=== PATIENT | male | born 1940 | race Caucasian/White ===

== ENCOUNTER 2016-10-10 12:12 | Inpatient (IN) | payer MEDICARE ==
[~2016-10-10] VITALS: Ht 167.6 cm; Wt 69.5 kg
[~2016-10-10 12:12] MED LIST: ASPIRIN81 MG PO; CELEBREX200 MG PO; COREG 3.1253.125 MG PO; LASIX40 MG PO; LIPITOR10 MG PO; OMEPRAZOLE40 MG PO; ULTRAM50 MG PO
--- NOTE | 2016-10-10 12:35 | NUR ---
TRANSFERED FROM ADMISSIONS BY W/C. OREINTED TO ROOM. CALL LIGHT IN REACH. WILL CONT. PLAN OF CARE.
[2016-10-10] MEDS ORDERED: COREG6.25 MG PO (12:45)
[2016-10-10 12:54] VITALS: BP 105/68; Ht 167.6 cm; Wt 69.5 kg
[2016-10-10 13:10] LABS: BASOPHILS 0.2 % (0.0-2.0); EOSINOPHILS 0.7 % (0-7); HEMATOCRIT 39.1 % (42.0-54.0); HEMOGLOBIN 12.7 g/dL (13.5-17.5); IMMATURE GRANULOCYTES 0.2 % (0-5); LYMPHOCYTES 19.1 % (15-50); MCH 28.2 pg (26.0-34.0); MCHC 32.5 g/dL (31.0-37.0); MCV 86.9 fL (80.0-100.0); MEAN PLATELET VOLUME 10.6 fL (7.4-10.4); MONOCYTES 7.3 % (2-11); NEUTROPHILS 72.5 % (40-80); PLATELET COUNT 199 10x3/uL (130-400); RDW 16.2 % (11.5-14.5); WBC 10.4 10x3/uL (4.8-10.8)
[2016-10-10 13:38] LABS: CKMB 0.5 U/L (0.0-3.6); CREATINE KINASE 40 UL (21-232); TROPONIN-I 0.045 ng/mL (0.000-0.060)
--- NOTE | 2016-10-10 13:45 | NUR ---
IV STARTED TO LEFT FA WITH 22 GAUGE CATH BY OCTAVIANO BUCKLEY. LINE IS PATENT.
[2016-10-10 14:16] LABS: ALBUMIN 3.4 g/dL (3.4-5.0); ANION GAP 9.6 mmol/L (8-16); BILIRUBIN - TOTAL 0.52 mg/dL (0.2-1.3); CALCIUM 9.6 mg/dL (8.5-10.1); CARBON DIOXIDE 27.3 mmol/L (21.0-32.0); CREATININE - SERUM 1.4 mg/dL (0.6-1.3); POTASSIUM - SERUM 3.9 mmol/L (3.5-5.1); PROTEIN - SERUM 7.3 g/dL (6.4-8.2)
--- NOTE | 2016-10-10 19:00 | NUR ---
RECEIVED REPORT AND ASSUMED PT CARE FROM DAY SHIFT NURSE @ THIS TIME.
[2016-10-10 20:25] VITALS: BP 100/61
[2016-10-10 20:34] VITALS: BP 111/70; BP 117/72
[2016-10-10 20:35] VITALS: BP 100/51
--- NOTE | 2016-10-10 21:30 | NUR ---
PT RESTING SOUNDLY IN BED WITHOUT C/O OR DISTRESS NOTED. NSR ON MONITOR, HR 78. DENIES ANY C/O PAIN. LEFT FOREARM WITH NS @ 50 CC/HR, INFUSING WITHOUT COMPLICATIONS. WILL CONT TO MONITOR.
[2016-10-11] VITALS (7 sets, daily range): BP systolic 85–137; BP diastolic 50–79
[2016-10-11 01:32] LABS: CKMB 0.6 U/L (0.0-3.6); CREATINE KINASE 44 UL (21-232); TROPONIN-I 0.043 ng/mL (0.000-0.060)
[2016-10-11 06:07] LABS: BASOPHILS 0.2 % (0.0-2.0); HEMATOCRIT 42.1 % (42.0-54.0); HEMOGLOBIN 13.4 g/dL (13.5-17.5); LYMPHOCYTES 22.4 % (15-50); MCHC 31.8 g/dL (31.0-37.0); MCV 88.1 fL (80.0-100.0); MEAN PLATELET VOLUME 10.8 fL (7.4-10.4); MONOCYTES 7.8 % (2-11); NEUTROPHILS 67.6 % (40-80); PLATELET COUNT 203 10x3/uL (130-400); RBC 4.78 10x6/uL (4.20-6.10); RDW 16.3 % (11.5-14.5); WBC 8.1 10x3/uL (4.8-10.8)
[2016-10-11 06:28] LABS: ALBUMIN 3.5 g/dL (3.4-5.0); ANION GAP 10.2 mmol/L (8-16); BILIRUBIN - TOTAL 0.4 mg/dL (0.2-1.3); CREATININE - SERUM 1.2 mg/dL (0.6-1.3); POTASSIUM - SERUM 4.2 mmol/L (3.5-5.1)
[2016-10-11] MEDS ORDERED: CORDARONE200 MG PO (10:03)
[2016-10-11] MEDS ORDERED: KENALOG 0.1% OI80 GM TOPICAL (10:05)
--- NOTE | 2016-10-11 11:04 | NUR ---
Is the patient Alert and Oriented? Yes 0 * How many steps to enter\exit or inside your home? Three 0 * PCP DR Heard 0 * Pharmacy Mail order delivery- Home Pharmacy Short term medications- [facility] 0 * Preadmission Environment Home Alone 0 * ADLs Independent 0 * Equipment Cane 0 * Other Equipment N/A 0 * List name and contact numbers for known caregivers / representatives who currently or will assist patient after discharge: Geovanna Bowling - [facility]- [phone] Leonora- [facility]- [phone] 0 * Community resources currently utilized None 0 * Additional services required to return to the preadmission environment? Yes 0 * Can the patient safely return to the preadmission environment? Yes 0 * Has this patient been hospitalized within the prior 30 days at any hospital? No CM met w/ patient and his 2 daughters at the bedside. They requested home health. Patient lives alone. Had syncopal episodes. He has 3 steps to enter his home. One daughter lines [place] [facility] [place]. His daughter, Leonora, lives in [place]. He had home health 2014 and could not recall the agency name. CM called health information & it was [facility] which is now [facility]. PCP in [facility]raiser is [facility] and [facility] Patient has transportation. MD order and Patient choice form obtained. TC to [facility]. CM spoke w/ Dana. Faxed referral. Patient will be seen Thursday or Thursday. They will notify the patient of visit day.
--- NOTE | 2016-10-11 12:26 | NUR ---
IV AND TELEMETRY DCD. DC PLANS GIVEN. UNDERSTANDING VOICED. ESCORTED TO CAR BY W/C.
--- NOTE | 2016-10-13 14:16 | CN ---
PATIENT NAME:TERRY BOWLING MEDICAL RECORD: [id number] : 44 LOCATION:D. D.2116 ADMIT DATE: 10/10/16 ACCOUNT: [id number] CONSULTING PHYSICIAN: MARGARITO NIX MD REFERRING PHYSICIAN: GILSON LAFLEUR DO DATE OF CONSULTATION: 10/10/2016 Cardiology Consultation DIAGNOSES: 1. Syncope. 2. Cardiomyopathy, nonischemic. 3. Abnormal ECG. HISTORY OF PRESENT ILLNESS: Mr. Bowling got out of bed at night to go the bathroom and had an episode of syncope. He did not have any chest pain or chest discomfort. He has a history of a nonischemic cardiomyopathy, cardiac catheterization last year revealed ejection fraction in the 25% to 30% range. This has continued on an echocardiogram we have from ____. He is overall asymptomatic from a heart failure standpoint. He has not had any significant arrhythmias on telemetry, only occasional PVCs. PHYSICAL EXAMINATION: GENERAL APPEARANCE: Well-nourished, well-developed, appears stated age. Level of distress, comfortable. PSYCHIATRIC: Mental status, alert, normal affect. Orientation, oriented to time, place and person. EYES: Lids and conjunctiva, noninjected. No discharge, no pallor. ENT: Lips, teeth, gums, normal dentition. Oropharynx, no cyanosis, no pallor. NECK: Carotid arteries, bilateral normal upstroke, no bruits, no thrills. JUGULAR VEINS: No jugular venous pressure or distention. CERVICAL LYMPH NODES: Nontender, nonenlarged. THYROID: Not enlarged. Nontender. No nodules. LUNGS: Respiratory effort, unlabored. CHEST: Normal curvature. No thoracic deformity. No chest wall tenderness. Percussion, resonant. Auscultation, clear. No wheezes, no rales, no rhonchi. CARDIOVASCULAR: Precordial exam, nondisplaced. No heaves or pericardial thrills. Rate and rhythm, regular. Heart sounds, normal S1, normal S2. No S3, no gallop, no rub. Systolic murmur, not heard. Diastolic murmur, not heard. EXTREMITIES: No cyanosis, no edema. Peripheral pulses, full and equal in all extremities, except as noted. No bruits appreciated. ABDOMEN: Soft, nondistended. Normal aorta. No bruit. Nontender. No masses. Liver, nontender, no hepatomegaly. Spleen, nontender, no splenomegaly. MUSCULOSKELETAL: No joint tenderness. No joint swelling. No erythema. NEUROLOGICAL: Normal gait, normal strength, normal tone. SKIN: Warm and dry. REVIEW OF SYSTEMS: The patient reports easy bruising but reports no swollen glands. The patient reports no fever, no night sweats, no significant weight gain, no significant weight loss. No significant exercise tolerance. The patient reports no dry eyes, no irritation, no vision change. Patient reports no difficulty hearing and no ear pain. Patient reports no frequent nose bleeds or nose and sinus problems. Patient reports on arm pain on exertion. No shortness of breath while lying down. No history of heart murmur. Patient reports no cough, no wheezing or coughing up blood. Patient reports no CONSULT REPORT [id number] TERRY BOWLING abdominal pain, no vomiting. Normal appetite. No diarrhea and not vomiting blood. No nausea and no constipation. Patient reports no incontinence. No difficulty urinating. No hematuria. No increased frequency. Patient reports no muscle aches. No weakness, no arthralgias, no back pain. No swelling of the extremities. Patient reports no abnormal mole, no jaundice, no rashes. Reports no loss of consciousness. No weakness and no numbness. No seizures, dizziness, or headaches. The patient reports no depression, no sleep disturbance, feeling safe in a relationship and no alcohol abuse. Patient reports on fatigue. Reports no runny nose or sinus pressure. No itching, no hives, and no frequent sneezing. OVERALL IMPRESSION: Nonischemic cardiomyopathy. His heart rate is 90, however, his systolic blood pressure is 105, it would be hard to increase his carvedilol to get better heart rate control with this. We have no reason to think that this was an arrhythmia. It barely maybe an orthostatic event. He has not been orthostatic since he has been here on blood pressure. At this time, no other cardiac workup treatment is necessary. TRANSINT:[id number] Voice Confirmation ID: [id number] DOCUMENT ID: [id number] MARGARITO NIX MD at 1416 CC: [id number] DICTATION DATE: 10/10/16 250 OPTOMECHANICAL ENGINEER: 10/10/16 2346 DIS IN 10/11/16 [facility] [address] [place] [address]
--- NOTE | 2016-10-13 14:16 | EC ---
PATIENT:TERRY SHAHID DATE OF SERVICE: 10/10/16 SEX: M MEDICAL RECORD: [id number] DATE OF : 44 LOCATION:D. D.211 AGE OF PATIENT: 75 ADMISSION DATE: 10/10/16 REFERRING PHYSICIAN: INTERPRETING PHYSICIAN: MARGARITO ZAMORA MD ECHOCARDIOGRAM REPORT ECHO CHARGES 4 ECHO COMPLETE CLINICAL DIAGNOSIS: CP/SYCOPE/SOB ECHOCARDIOGRAPHIC MEASUREMENTS (adult normal given) AC root (d.<3.7cm) 3.5 LV Septum d (<1.2 cm> 1.4 Valve Excursion 1.4 LV Septum (systole) 1.9 Left Atria (s.<4.0cm> 3.7 LVPW d(<1.2cm) 1.5 RV (d.<2.3cm) 2.6 LVPW (sytole) 1.6 LV diastole(<5.6CM) 6.4 MV E-F(>70mm/sec) LV systole 4.7 LVOT Diameter 2.2 MV exc.(>10mm) Est.ejection fraction (50-75%) Pericardial Effusion N DOPPLER: LVIT A 96.0 E 52.0 LA RVSP 57.0 LVOT 68.0 AOP1/2T 401.0 Asc. Ao 214 RVOT 88.0 RA PA 100 AV Gradient Peak 18.3 AV Mean 8.2 AV Area 1.4 MV Gradient Peak 4.1 MV Mean 1.1 MV Area COMMENTS: Director Of Music: Ozzie LOPEZ Car Stereo Installer:1 Dr. [facility] TAPE# PACS DATE OF SERVICE: 10/10/2016 Echocardiogram FINDINGS: 1. Left ventricular chamber size is mildly dilated. Left ventricular systolic function is markedly reduced, overall ejection fraction 25% to 30%. This however, is an improvement on his previous echocardiogram done last year showing ejection fraction 20%. 2. Left atrium is within normal limits at 3.7 cm. Right atrium and right ECHOCARDIOGRAM REPORT [id number] TERRY SHAHID ventricular chamber sizes are upper limits of normal. 3. Valvular structures have normal structure and motion. 4. Doppler interrogation reveals mild aortic insufficiency, moderate mitral regurgitation, and mild tricuspid regurgitation. No other valvular insufficiency or stenosis; however, pulmonary systolic pressure is mildly elevated estimated at 57 mmHg. 5. No evidence of pericardial effusion or left ventricular thrombus. TRANSINT:[id number] Voice Confirmation ID: [id number] DOCUMENT ID: [id number] MARGARITO ZAMORA MD at 1416 CC: GILSON ALFLEUR DO [id number] DICTATION DATE: 10/10/16 1844 CASING OPERATOR: 10/11/16 0821 DIS IN 10/11/16 [facility] [address] [place] [address]
== END 2016-10-11 12:27 | disposition home or self-care (01) | DRG 312 ==
LOC: D.M2 12:12
PROVIDERS: ADMIT Family Medicine
DX: R55 Syncope and collapse (principal); I42.9 Cardiomyopathy, unspecified; R07.9 Chest pain, unspecified; I49.3 Ventricular premature depolarization; R94.31 Abnormal electrocardiogram [ECG] [EKG]; N18.3 Chronic kidney disease, stage 3 (moderate); Z72.0 Tobacco use

== ENCOUNTER 2017-06-04 13:22 | Inpatient (IN) | payer MEDICARE ==
[~2017-06-04] VITALS: Ht 167.6 cm; Wt 71.2 kg
[2017-06-04] VITALS (11 sets, daily range): BP systolic 110–152; BP diastolic 58–92; BMI 25.4
--- NOTE | ~2017-06-04 | OP ---
PATIENT NAME: TERRY SHAHID MEDICAL RECORD: [id number] :42 LOCATION:D.MS [id number] ADMISSION DATE:06/04/17 SURGEON: VAISHNAVI HERNANDEZ MD DATE OF OPERATION: 06/04/2017 PREOPERATIVE DIAGNOSIS: Incarcerated left inguinal hernia. POSTOPERATIVE DIAGNOSES: 1. Recurrent left indirect inguinal hernia. 2. Left groin mass, infected, of uncertain etiology. PROCEDURES: 1. Open recurrent left inguinal hernia repair with Vicryl mesh. 2. Excision of infected subcutaneous mass in the left groin with placement of a drain. SURGEON: Vaishnavi Hernandez MD TURFGRASS MANAGEMENT PROFESSOR: None. BLOOD LOSS: 100 cc. ANESTHESIA: General. DRAINS: Times 1 (19-Chinese round Jaxson drain). The risks, possible complications, and alternatives to the procedure were explained to the patient. He elected to proceed. OPERATIVE COURSE: The patient was conveyed to the operating room electively on 06/04/2017. General anesthesia was induced by the anesthesia staff. The abdomen and genitals were sterilely prepped and draped. A transverse incision was accomplished in the left lower quadrant. Sharp dissection was carried down through skin and subcutaneous tissue as well as Maya fascia. The external oblique aponeurosis was cleaned of overlying connective tissue. I incised the external oblique aponeurosis along the direction of its fibers. I bluntly dissected down through the internal oblique and the transversus abdominis muscle layers. A preperitoneal pocket was fashioned bluntly. There was no direct component and no femoral component. There was a recurrent indirect inguinal hernia. The patient interestingly, preoperatively, told me that he had had a hernia repair at the right groin; however, because of pubic hair, I could not see that he actually had a left groin scar. There was scarring in the left lower quadrant, particularly superficial to the external oblique aponeurosis from his prior repair. His prior repair appeared to be either a suture repair or an onlay repair. There was a recurrent indirect inguinal hernia and it was reduced in its entirety. A subcutaneous tract was created down to this extraperitoneal mass which was actually in the left groin and adherent to the left cord structures. I was able to free up most of this through blunt dissection. This may represent some type of neoplasm. This may represent some type of lymphatic abnormality. I am really not sure what it represented; however, the patient's history that it has only been present for few days is not consistent with what I saw. Purulence was OPERATIVE REPORT [id number] TERRY SHAHID identified. Cultures were obtained. Meticulous hemostasis was achieved with the electrocautery. As purulence had identified, synthetic mesh was going to be out of the question. I elected to perform the hernia repair utilizing Vicryl mesh. Two layers of Vicryl mesh were cut in ovals . One was placed on top of the other and they were sutured together with running #1 Surgidac. The mesh was placed in the preperitoneal space. Once I was satisfied with placement, I allowed the internal oblique and transversus abdominis muscles to come together and I sutured them together with multiple interrupted horizontal mattress #0 Surgidacs, incorporating a portion of the underlying mesh. The external oblique aponeurosis was closed with a running #1 Vicryl. A 19-Chinese round Jaxson drain was brought out through a stab incision laterally. The drain was sutured to the skin with a 4-0 nylon. The tip of the drain was placed down into the left hemiscrotum. Maya fascia was approximated with interrupted 3-0 Vicryls. The skin was approximated with metallic clips. A sterile dressing was applied. The patient was then extubated and conveyed to the postanesthesia care unit, where he was in stable condition. TRANSINT:[id number] Voice Confirmation ID: [id number] DOCUMENT ID: [id number] VAISHNAVI HERNANDEZ MD CC: GILSON LAFLEUR DO [id number] DICTATION DATE: 06/05/17 164 FOREST MANAGEMENT PROFESSOR: 06/05/17 1834 ADM IN [facility] [address] [place] [id number]
--- NOTE | ~2017-06-04 | HP ---
PATIENT: TERRY SHAHID MEDICAL RECORD: [id number] ACCOUNT: [id number] LOCATION:D.MS Reed9 : 42 ADMISSION DATE: 06/04/17 HISTORY AND PHYSICAL EXAMINATION ADDENDUM CHIEF COMPLAINT: Pain. HISTORY OF PRESENT ILLNESS: The patient has noticed a left inguinal bulge for about a day or two. It is irreducible. I was contacted by Dr. Osmar Heard about this mass. I rather asked for the patient to come to the office. I was unable to reduce this mass in the office. I was able to partially reduce it. This appears to be an incarcerated left inguinal hernia. I have explained the pathophysiology of hernias to the patient including how they are repaired. We discussed the risks, possible complications, and alternatives of the procedure. I specifically discussed with him that we would be using mesh. We discussed the possibility of a pseudo sac, hematoma, or seroma. Palpation aggravates. Nothing alleviates. The pain is severe. He has had no nausea, no vomiting, no abdominal distention, no obstructive symptoms. He has had a prior right inguinal hernia, although I am unable to detect the scar on the right. This is a history and physical addendum. For the typed portion of the history and physical, please see the chart. This would include the past medical history, surgical history, allergies, social history, family history, and current medications. REVIEW OF SYSTEMS: No nausea, no vomiting, no fever, no chills. Positive for left inguinal pain. PHYSICAL EXAMINATION: GENERAL: The patient does not appear acutely ill. He does appear chronically ill. VITAL SIGNS: Reviewed. EARS: External ears appear normal. EYES: Extraocular movements are intact. NECK: Trachea is midline. CHEST: No intercostal retractions. PULMONARY: Nonlabored. ABDOMEN: Nontender. GENITOURINARY: Distended testicles. Left inguinal bulge, which is irreducible. EXTREMITIES: No peripheral cyanosis. INTEGUMENT: No rash, no ulcerations. PSYCHIATRIC: Normal affect. NEUROLOGIC: Nonfocal, no lethargy. The patient answers questions appropriately, moves all extremities well. BACK: Thoracic kyphosis is present. LYMPHATICS: No lymphangitic streaking of the exposed extremities. IMPRESSION: Incarcerated left inguinal hernia. PLAN: Open left inguinal hernia repair with mesh. TRANSINT:[id number] Voice Confirmation ID: [id number] DOCUMENT ID: [id number] HISTORY AND PHYSICAL [id number] TERRY SHAHID ROBERT MD CC: [id number] DICTATION DATE: 06/04/17 1337 COLLISION MECHANIC: 06/04/17 1359 ADM IN [place] [id number] [place] [id number]
[~2017-06-04 13:22] MED LIST changes: +CORDARONE200 MG PO; +COREG6.25 MG PO; +KENALOG 0.1% OI80 GM TOPICAL
[2017-06-04] MEDS ORDERED: ULTRAM50 MG PO (13:40)
--- NOTE | 2017-06-04 14:35 | NUR ---
IV SITED TO THE LEFT FOREARM, 22G FLUSHED WITH NS AND SECURED WITH OP-SITE AND TAPE. BED IN LOW POSITION AND CALL LIGHT WITHIN REACH. WILL CONTINUE TO MONITOR.
[2017-06-04 14:42] LABS: BASOPHILS 0.3 % (0-2); HEMATOCRIT 39.5 % (42.0-54.0); HEMOGLOBIN 13.2 g/dL (13.5-17.5); IMMATURE GRANULOCYTES 0.2 % (0-5); LYMPHOCYTES 18.5 % (15-50); MCH 29.7 pg (26.0-34.0); MCHC 33.4 g/dL (31.0-37.0); MEAN PLATELET VOLUME 9.6 fL (7.4-10.4); MONOCYTES 11.1 % (2-11); NEUTROPHILS 66.9 % (40-80); PLATELET COUNT 246 10x3/uL (130-400); RBC 4.44 10x6/uL (4.20-6.10); RDW 15.3 % (11.5-14.5); WBC 6.4 10x3/uL (4.8-10.8)
[2017-06-04 14:45] LABS: INR 1.09 (0.85-1.17)
[2017-06-04 14:49] LABS: ALBUMIN 3.2 g/dL (3.4-5.0); ANION GAP 10.5 mmol/L (8-16); BILIRUBIN - TOTAL 0.71 mg/dL (0.2-1.3); CALCIUM 8.9 mg/dL (8.5-10.1); CARBON DIOXIDE 27.8 mmol/L (21.0-32.0); CREATININE - SERUM 1.8 mg/dL (0.6-1.3); POTASSIUM - SERUM 3.3 mmol/L (3.5-5.1); PROTEIN - SERUM 7.6 g/dL (6.4-8.2)
--- NOTE | 2017-06-04 18:32 | NUR ---
VANCOMYCIN 1MG IN 250ML OF NS INFUSING WHEN PT ARRIVED IN PACU
--- NOTE | 2017-06-04 19:15 | NUR ---
GOT PT OVER TO ROOM ON MEDSURG AND PT VOICED"IM HURTING NOW, I CANT KEEP COUGHING". FLOOR NURSE IS GIVING REPORT SO I VOICED I WOULD BRING THE PT SOME PAIN MEDICINE ORDERED AND STAY WITH THE PT FOR 10 MINUTES TO MONITOR PAIN MEDICATIONS EFFECTS. PT FAMILY IS IN THE ROOM. BED IS LOW,SIDE RAILSX2,CALL LIGHT WITHIN REACH.[facility]
--- NOTE | 2017-06-04 19:25 | NUR ---
PT VOICES"THE PAIN MEDICINE IS HELPING". BP IS 143/64 PULSE 58, RR 18, OXYGEN SAT 99%. HANDING OFF PT TO NURSE YAMIL BUCKLEY.
--- NOTE | 2017-06-04 19:30 | NUR ---
RETURNED TO ROOM POST OP LEFT HERNIA REPAIN. DRESSING TO LEFT LOWER ABDOMEN WITH RENETTA DRAIN IN PLACE AND COMPRESSED. IV PATENT LEFT FOREARM OF NS AT 100CC'S PER HR. O2 ON 2L/M PER NC. HOB UP 30 DEGREES. SR UP X2 CALL LIGHT WITHIN REACH FAMILY IN ROOM.
--- NOTE | 2017-06-04 20:41 | NUR ---
UNDERWATER TRAPPER OF DILAUDID SET UP FOR PAIN CONTROL INSTRUCTED PATIENT ON HOW TO OPERATE UNDERWATER TRAPPER. SR UP X2 CALL LIGHT WITHIN REACH.
--- NOTE | 2017-06-04 22:00 | NUR ---
RESTING QUIETLY RESPIRATIONS WITH EASE AND UNLABORED. EMPTIED 90CC'S BLOODY DRAINAGE FROM RENETTA DRAIN
[2017-06-05] VITALS (8 sets, daily range): BP systolic 94–143; BP diastolic 46–68; Ht 167.6 cm; Wt 71.2 kg
--- NOTE | 2017-06-05 | NUR ---
EYES CLOSED RESPIRATIONS WITH EASE AND UNALBORED.
--- NOTE | 2017-06-05 02:30 | NUR ---
RESTING QUIETLY RESPIRATIONS WITH EASE AND UNLABORED.
--- NOTE | 2017-06-05 04:26 | NUR ---
EYES CLOSED RESPIRATIONS WITH EASE AND UNLABORED.
--- NOTE | 2017-06-05 06:07 | NUR ---
NO CHANGES IN ASSESSMENT
--- NOTE | 2017-06-05 08:02 | NUR ---
AWAKE AND ALERT. ORIENTED X3. NO C/O AT THIS TIME. LUNGS ARE CLEAR BILATERALLY, NO COUGH NOTED. STATED HE IS DOING HIS DEEP BREATHING EXERCISES. SKIN IS INTACT WITHOUT REDNESS EXCEPT INCISION TO LEFT LOWER QUAD WHICH HAS A DRESSING IN PLACE WITH BLOODY DRAINAGE. WILL MONITOR. IV TO LEFT FOREARM IS PATNET WITHOUT REDNESS AT INSERTION SITE. DENIES NEEDS.
--- NOTE | 2017-06-05 08:06 | NUR ---
HERNANDEZ PATENT WITH CLEAR YELLOW URINE. SCD'S IN PLACE
--- NOTE | 2017-06-05 08:41 | NUR ---
RENETTA TO LEFT LOWER QUAD PATENT WITH SEROUS SANQUINESS DRAINAGE NOTED.
--- NOTE | 2017-06-05 09:10 | NUR ---
OFF UNIT VIA BED FOR CT.
--- NOTE | 2017-06-05 09:45 | NUR ---
RETURNED FROM CT. NO NEEDS NOTED.
--- NOTE | 2017-06-05 12:15 | NUR ---
PATIENT IS STILL NPO. DENIES NEEDS.
--- NOTE | 2017-06-05 14:30 | NUR ---
RESTING QUIETLY IN ROOM. REPORTED UNABLE TO NAP AT THIS TIME. DENIES NEEDS.
--- NOTE | 2017-06-05 19:04 | NUR ---
ATE ALL OF FULL LIQUID SUPPER TRAY. NO C/O NAUSEA OR PAIN WITH FOOD.
[2017-06-06 00:11] VITALS: BP 110/68
[2017-06-06 04:00] VITALS: BP 106/48
--- NOTE | 2017-06-06 08:00 | NUR ---
AWAKE AND ALERT. ORIENTED X3. NO C/O AT THIS TIME. LUNGS ARE CLEAR BILATERALLY, NO COUGH NOTED. SKIN IS INTACT WITHOUT REDNESS EXCEPT INCISION TO LEFT LOWER QUAD WHICH HAS A DRY INTACT DRESSING IN PLACE. IV TO LEFT FOREARM IS PATENT WITHOUT REDNESS AT INSERTION SITE. DENIES NEEDS.
[2017-06-06 08:40] VITALS: BP 125/69
--- NOTE | 2017-06-06 09:00 | NUR ---
ATE ALL OF REGULAR BREAKFAST. NO C//O NAUSEA OR INCREASED PAIN WITH FOOD.
--- NOTE | 2017-06-06 11:30 | NUR ---
RESTING QUIETLY IN BED. DENIES NEEDS.
[2017-06-06 12:39] VITALS: BP 128/63
--- NOTE | 2017-06-06 13:00 | NUR ---
ATE ALL OF LUNCH PER SELF. NO C/O AT THIS TIME
--- NOTE | 2017-06-06 14:41 | NUR ---
AMBULATED 60 FEET WITH STAFF. GIVEN BED BATH PER STAFF AND LINENS CHANGED. REPOSITIONED IN BED FOR COMFORT.
[2017-06-06 16:51] VITALS: BP 105/66
[2017-06-06] MEDS ORDERED: KEFLEX500 MG PO (18:30)
[2017-06-06] MEDS ORDERED: HYDROCODON-ACE1 EAC7 PO (18:31)
--- NOTE | 2017-06-06 18:33 | NUR ---
ATE MOST OF SUPPER. DENIES NEEDS. NO CHANGES NOTED.
[2017-06-06 19:23] VITALS: BP 111/58
[2017-06-07] VITALS: BP 114/54
--- NOTE | 2017-06-07 02:01 | NUR ---
DRESSING CHANGE TO LEFT LOWER QUAD PREFORMED WELL. EDGES OF WOUND WELL APPOROXIMATED WITH NO REDNESS, SWELLING, OR PURULANT DISHCARGE. CARITO IN TACT.
--- NOTE | 2017-06-07 02:01 | NUR ---
RENETTA TO LEFT LOWER QUAD DC'D WITH NO LOSS OF BLOOD NOTED. HERNANDEZ BULB DEFLATED OF 8CC OF SALINE AND REMOVED WITH TIP IN TACT. 1500 OF URINE IN BAG. 25ML OF RED FLUID REMOVED FROM RENETTA BULB.
--- NOTE | 2017-06-07 03:00 | NUR ---
PT VOIDED POST HERNANDEZ REMOVAL. INC X1.
[2017-06-07 04:00] VITALS: BP 124/61
--- NOTE | 2017-06-07 04:04 | NUR ---
PATIENT RESTING IN BED WITH EYES CLOSED AND NO VISIBLE SIGNS OF DISTRESS. BED IN LOWEST POSITION AND CALL LIGHT WITHIN REACH.
--- NOTE | 2017-06-07 06:49 | NUR ---
DRESSING CHANGE TO LEFT NECK. SMALL AMOUNT OF DRAINAGE NOTED. PURULANT WITH BLOOD MIXED.
--- NOTE | 2017-06-07 08:02 | NUR ---
AWAKE AND ALERT. ORIENTED X3. LUNGS ARE CLEAR BILATERALLY, NO COUGH NOTED. SKIN IS INTACT WITHOUT REDNESS EXCEPT INCISION TO LEFT GROIN WHICH HAS A DRY INTACT DRESSING IN PLACE. SL TO LEFT FOREARM IS PATENT WITHOUT REDNESS AT INSERTION SITE. DENIES NEEDS. VOIDED 200CC CLEAR YELLOW URINE IN URINAL PER SELF.
[2017-06-07 08:35] VITALS: BP 127/52
--- NOTE | 2017-06-07 09:30 | NUR ---
CALLED DAUGHTER CARLOS AND LEFT MESSAGE.
--- NOTE | 2017-06-07 10:30 | NUR ---
CALLED DAUGHTER CARLOS AGAIN. LEFT MESSAGE.
--- NOTE | 2017-06-07 12:15 | NUR ---
LUNCH SERVED IN ROOM. DAUGHTER HERE. WILL GET READY TO D/C.
--- NOTE | 2017-06-07 13:32 | NUR ---
DISCHARGED TO HOME AMBULATORY WITH FAMILY. DISCHARGE INSTRUCTIONS GIVEN BOTH VERBALLY AND WRITTEN. ALL QUESTIONS ANSWERED. PATIENT AND FAMILY VERBALIZED UNDERSTANDING OF SAME. NEEDED PRESCRIPTIONS GIVEN TO PATIENT. IV TO LEFT FOREARM D/C WITH CATHETER INTACT.
== END 2017-06-07 13:35 | disposition home or self-care (01) | DRG 352 ==
LOC: OBSVTIME 13:22 → D.MS 13:22 → UNDOADMOB 13:22 → D.MS 18:46
PROVIDERS: ADMIT Surgery
PROC: 0JBB0ZZ Excision of Perineum Subcutaneous Tissue and Fascia, Open Approach (ICD-10-PCS; 2017-06-04)
PROC: 0YU60JZ Supplement Left Inguinal Region with Synthetic Substitute, Open Approach (ICD-10-PCS; principal; 2017-06-04 15:00)
DX: K40.91 Unilateral inguinal hernia, without obstruction or gangrene, recurrent (principal); R22.2 Localized swelling, mass and lump, trunk

== ENCOUNTER 2017-08-07 14:02 | Inpatient (IN) | payer MEDICARE ==
[~2017-08-07] VITALS: Ht 167.6 cm; Wt 60.1 kg
[~2017-08-07 14:02] MED LIST changes: +HYDROCODON-ACE1 EAC7 PO; +KEFLEX500 MG PO
[2017-08-07 20:23] LABS: APPEARANCE CLEAR (CLEAR); BILIRUBIN NEGATIVE (NEGATIVE); COLOR YELLOW (YELLOW); GLUCOSE NEGATIVE (NEGATIVE); KETONE NEGATIVE (NEGATIVE); NITRITE NEGATIVE (NEGATIVE); PROTEIN NEGATIVE (NEGATIVE); UROBILINOGEN NORMAL (NORMAL)
[2017-08-07 20:33] LABS: BASOPHILS 0.1 % (0-2); EOSINOPHILS 0.2 % (0-7); HEMATOCRIT 41.1 % (42.0-54.0); HEMOGLOBIN 13.5 g/dL (13.5-17.5); IMMATURE GRANULOCYTES 0.3 % (0-5); LYMPHOCYTES 9.5 % (15-50); MCH 28.4 pg (26.0-34.0); MCHC 32.8 g/dL (31.0-37.0); MCV 86.3 fL (80.0-100.0); MEAN PLATELET VOLUME 9.3 fL (7.4-10.4); MONOCYTES 8.3 % (2-11); NEUTROPHILS 81.6 % (40-80); RBC 4.76 10x6/uL (4.20-6.10); RDW 15.2 % (11.5-14.5)
[2017-08-07 20:34] LABS: PLATELET COUNT 496 10x3/uL (130-400)
[2017-08-07 20:49] LABS: ALBUMIN 2.2 g/dL (3.4-5.0); ANION GAP 8.2 mmol/L (8-16); BILIRUBIN - TOTAL 0.98 mg/dL (0.2-1.3); CALCIUM 8.6 mg/dL (8.5-10.1); CARBON DIOXIDE 30.8 mmol/L (21.0-32.0); CREATININE - SERUM 2.2 mg/dL (0.6-1.3); PROTEIN - SERUM 7.4 g/dL (6.4-8.2)
[2017-08-07] MEDS ORDERED: ALEVE220 MG PO (23:36)
[2017-08-08] VITALS (7 sets, daily range): BP systolic 93–114; BP diastolic 40–72; Ht 167.6 cm; Wt 60.1 kg
--- NOTE | 2017-08-08 08:00 | NUR ---
ASSESSMENT PER FLOW SHEET.PT WITHOUT DISTRESS.DENIES NEEDS.CALL LIGHT IN REACH
--- NOTE | 2017-08-08 15:14 | NUR ---
HAS BEEN WITHOUT DISTRESS TODAY. MINIMAL PINK TINTED DRAINAGE FROM LEFT GROIN. SMALL OPEN AREA ABOUT 1/4 INCH LONG.
[2017-08-09] VITALS: BP 112/60
--- NOTE | 2017-08-09 00:37 | NUR ---
ZOFRAN GIVEN FOR NAUSEA. PATIENT STATED HE WAS COUGHING THEN VOMITIED TWICE. PARTIAL LINEN CHANGE AND BATH GIVEN. DRESSING TO LLQ REPLACED SINCE OLD DRESSING WAS SATURATED.
--- NOTE | 2017-08-09 01:00 | NUR ---
LEFT INGUINAL ABSCESS WITH SEROSANG DRAINAGE. PERSONNEL TRAINING OFFICER HEATH CLEANING AND CHANGING DRESSING. NO OTHER NEEDS. CONTINUE PERSONNEL TRAINING OFFICER'S PLAN OF CARE.
[2017-08-09 04:00] VITALS: BP 95/45
[2017-08-09 05:50] LABS: BASOPHILS 0.1 % (0-2); EOSINOPHILS 0.2 % (0-7); HEMATOCRIT 35.4 % (42.0-54.0); HEMOGLOBIN 11.6 g/dL (13.5-17.5); IMMATURE GRANULOCYTES 0.4 % (0-5); LYMPHOCYTES 4.3 % (15-50); MCHC 32.8 g/dL (31.0-37.0); MCV 85.5 fL (80.0-100.0); MEAN PLATELET VOLUME 9.8 fL (7.4-10.4); MONOCYTES 5.9 % (2-11); NEUTROPHILS 89.1 % (40-80); PLATELET COUNT 486 10x3/uL (130-400); RBC 4.14 10x6/uL (4.20-6.10); RDW 15.7 % (11.5-14.5)
[2017-08-09 06:16] LABS: ANION GAP 10.1 mmol/L (8-16); CALCIUM 7.7 mg/dL (8.5-10.1); CARBON DIOXIDE 25.3 mmol/L (21.0-32.0); CREATININE - SERUM 2.4 mg/dL (0.6-1.3); POTASSIUM - SERUM 3.4 mmol/L (3.5-5.1)
--- NOTE | 2017-08-09 08:00 | NUR ---
ASSESSMENT PER FLOW SHEET.PT WITHOUT DISTRESS.DENIES NEEDS AT PRESENT.CALL LIGHT IN REACH
[2017-08-09 08:54] VITALS: BP 90/69
--- NOTE | 2017-08-09 11:00 | NUR ---
WOUND CLEANED AND PACKED ORDERED. SALES AND MARKETING DIRECTOR USED. IV RESITED TO RIGHT FOREARM PER PT REQUEST.22G X1 STICK USING ASEPTIC TECH.IV DCD FROM LEFT AC WITH CATH TIP INTACT.
--- NOTE | 2017-08-09 15:18 | NUR ---
LARGE AMOUNTS OF LOOSE STOOL.BED CHANGE AND PT CLEANED
--- NOTE | 2017-08-09 15:48 | NUR ---
LOOSE STOOLS X3 SO FAR TODAY.
--- NOTE | 2017-08-09 17:14 | NUR ---
LOOSE STOOLS X5 TODAY.DENIES PAIN AT PRESENT.REMAINS WITHOUT NAUSEA.CONT PLAN OF CARE
[2017-08-09 20:00] VITALS: BP 110/55
[2017-08-10] VITALS: BP 111/53
--- NOTE | 2017-08-10 00:17 | NUR ---
PATIENT LAYING IN BED WITH NO COMPLAINTS. NO CHANGES SINCE ASSESSMENT
[2017-08-10 04:00] VITALS: BP 115/59
--- NOTE | 2017-08-10 04:30 | NUR ---
PT INCONTINENT OF SOFT STOOL. CLEANED PT AND CHANGED PADS. PLACED BEDSIDE COMMODE AND INSTRUCTED PT TO CALL FOR ASSISTANCE. PT VERBALIZED UNDERSTANDING. CONTINUE GENERAL CAR YARD SUPERVISOR'S PLAN OF CARE.
[2017-08-10 05:00] LABS: BASOPHILS 0.1 % (0-2); EOSINOPHILS 0.8 % (0-7); HEMATOCRIT 35.9 % (42.0-54.0); HEMOGLOBIN 11.5 g/dL (13.5-17.5); IMMATURE GRANULOCYTES 0.5 % (0-5); LYMPHOCYTES 8.4 % (15-50); MCH 27.4 pg (26.0-34.0); MCV 85.5 fL (80.0-100.0); MEAN PLATELET VOLUME 9.5 fL (7.4-10.4); MONOCYTES 5.8 % (2-11); NEUTROPHILS 84.4 % (40-80); PLATELET COUNT 472 10x3/uL (130-400); RDW 15.7 % (11.5-14.5)
[2017-08-10 05:11] LABS: ANION GAP 10.9 mmol/L (8-16); CALCIUM 7.7 mg/dL (8.5-10.1); CARBON DIOXIDE 24.6 mmol/L (21.0-32.0); POTASSIUM - SERUM 3.5 mmol/L (3.5-5.1)
[2017-08-10 05:12] LABS: CREATININE - SERUM 1.6 mg/dL (0.6-1.3)
--- NOTE | 2017-08-10 06:33 | NUR ---
DR SANCHEZ VISITED WITH PATIENT. STATED THAT HE DIDN'T FEEL A MASS BUT SHE IS VERY SORE
--- NOTE | 2017-08-10 07:05 | NUR ---
REPORT RECEIVED FROM ADDICTIONS COUNSELOR NURSE. CALL LIGHT IN REACH
--- NOTE | 2017-08-10 08:15 | NUR ---
ASSESSMENT COMPLETED. AM MEDS ADMINISTERED EXCEPT FOR COREG FOR DBP OF 59. MORPHINE 4 MG SIVP PER C/O PAIN OF 8 TO ABDOMEN. CALL LIGHT IN REACH. WILL CONTINUE WITH PLAN OF CARE.
[2017-08-10 08:29] VITALS: BP 116/54
--- NOTE | 2017-08-10 09:00 | NUR ---
RESTING IN BED. ASSISTED WITH FINDING URINAL AT THIS TIME. ALSO FILLED MENU OUT FOR PATIENT. DENIES PAIN OR DISCOMFORT. NO NEEDS NOTED.
--- NOTE | 2017-08-10 09:15 | NUR ---
SCDs APPLIED TO BLE PER ORDER.
--- NOTE | 2017-08-10 10:09 | NUR ---
Patient Name: TERRY SHAHID Admission Status: ER Accout number: [id number] Admission Date: 08-07-2017 : 1940 Admission Diagnosis: Attending: SAVANNA SANCHEZ Current LOS: 3 Anticipated DC Date: Planned Disposition: Home Primary Insurance: [employer] CHOICE PPO MCR ADVANT Discharge Planning Comments: CM met with patient to assess discharge planning needs. Patient lives independently at home alone and that is where he plans to discharge too. Patient stated that his daughter Kelsea will be the one to drive home. Patient stated that he is not current with HH, but has had [facility] in the past and if needed would like to use them again. Patient has a cane and a walker at home. CM will continue to follow and assist with discharge planning needs. PCP: [facility] Keita Kelsea (daughter) Animal Cop: Lindsey Deng * Is the patient Alert and Oriented? Yes 0 * How many steps to enter\exit or inside your home? 3 0 * PCP [facility] 0 * Pharmacy Budget 0 * Preadmission Environment Home Alone 0 * ADLs Independent 0 * Equipment Rolling Walker 0 * List name and contact numbers for known caregivers / representatives who currently or will assist patient after discharge: Kelsea (daughter) 0 * Community resources currently utilized None 0 * Please name any agencies selected above. [facility] 0 * Additional services required to return to the preadmission environment? Yes 0 * Can the patient safely return to the preadmission environment? Yes 0 * Has this patient been hospitalized within the prior 30 days at any hospital? No 0 Grand Total: 0
--- NOTE | 2017-08-10 10:19 | NUR ---
Vancomycin trough is 11.3 today. Not going to increase dose because of renal function. Ordered trough for 08-12 at 0800.
--- NOTE | 2017-08-10 11:05 | NUR ---
STATES PAIN IS DOWN TO A 6 AT THIS TIME. CALL LIGHT IN REACH.
[2017-08-10 12:05] VITALS: BP 121/56
--- NOTE | 2017-08-10 12:47 | NUR ---
C/O PAIN TO ABDOMEN OF 8. MORPHINE 4 MG SIVP. ALSO INSTRUCTED PATIENT TO TURN EVERY 2 HOURS TO PREVENT SKIN BREAKDOWN. TURNED TO HIS RIGHT SIDE. STATES HE WILL LIE ON THAT SIDE FOR 2 HOURS BEFORE TURNING AGAIN. BED ALARM ON. CALL LIGHT IN REACH.
--- NOTE | 2017-08-10 14:11 | NUR ---
PAIN IS BACK DOWN TO A 6 AT THIS TIME.
--- NOTE | 2017-08-10 15:58 | NUR ---
DR. HERNANDEZ IN ROOM TO SEE PATIENT.
[2017-08-10 16:14] VITALS: BP 109/61
--- NOTE | 2017-08-10 16:29 | NUR ---
COREG PO. MORPHINE 4 MG SIVP FOR PAIN OF 8 TO ABDOMEN. CALL LIGHT IN REACH.
--- NOTE | 2017-08-10 16:50 | NUR ---
DRSG TO ABDOMEN CHANGED PER MD ORDER. CALL LIGHT IN REACH.
--- NOTE | 2017-08-10 18:01 | NUR ---
NO CHANGES IN INITIAL ASSESSMENT. CALL LIGHT IN REACH. SCDs TO BLE. BED ALARM ON. WILL CONTINUE WITH PLAN OF CARE.
--- NOTE | 2017-08-10 20:00 | NUR ---
ASSESSMENT PER FLOWSHEET. DRESSING TO LEFT GROIN AREA C/D/I. VOIDS IN URINAL. IV APTENT RT FOREARM OF NS AT 125CC'S/HR SITE CLEAR. UX DEVELOPER OF MORPHINE IN USE WITH SETTINGS AT 1MG Q10MIN W/10MG Q4H L/O. PATIENT CONTINUES TO PRESS PCS BUTTON UNTIL HE IS IN LOCKOUT. SCD'S ON SR UP X2 CALL LIGHT WITHIN REACH.
--- NOTE | 2017-08-10 21:00 | NUR ---
MEDS GIVEN PER MAR.
--- NOTE | 2017-08-10 22:30 | NUR ---
RESTING QUIETLY SR UP X2 CALL LIGHT WITHIN REACH.
[2017-08-11] VITALS (7 sets, daily range): BP systolic 111–168; BP diastolic 57–64
--- NOTE | 2017-08-11 | NUR ---
EYES CLOSED RESPIRATIONS WITH EASE AND UNLABORED.
--- NOTE | 2017-08-11 07:50 | NUR ---
REPORT RECEIVED FROM INA SKY.
--- NOTE | 2017-08-11 08:49 | NUR ---
ASSESSMENT COMPLETED. AM MEDS ADMINISTERED. SCDs TO BLE. BED ALARM ON. CALL LIGHT IN REACH. WILL CONTINUE WITH PLAN OF CARE.
--- NOTE | 2017-08-11 10:05 | NUR ---
MAXIMUM LIMIT REACHED ON SOFT METALS ENGRAVER HAND. EXPLAINED TO PATIENT AGAIN THAT HE CAN ONLY HAVE A TOTAL OF 10 MG IN 4 HOURS THEN IT LOCKS OUT. VERBALIZED UNDERSTANDING.
--- NOTE | 2017-08-11 12:10 | NUR ---
SALES MANAGER PREARRANGED FUNERALS HAS BEEPED SEVERAL TIMES SAYING MAXIMUM LIMIT REACHED. PATIENT STATES THAT HE IS PUSHING THE BUTTON OVER AND OVER. I EXPLAINED TO PATIENT AGAIN THAT HE CAN ONLY HIT THE BUTTON ONCE WHEN THE LIGHT ON THE BUTTON IS GREEN AND HE CANNOT HIT IT AGAIN UNTIL IT IS GREEN AGAIN. PATIENT STATES HE NOW UNDERSTANDS. BED ALARM IS ON. CALL LIGHT IN REACH.
--- NOTE | 2017-08-11 13:42 | NUR ---
RESTING QUIETLY IN BED WITH EYES CLOSED. NO NEEDS NOTED.
--- NOTE | 2017-08-11 14:33 | NUR ---
ASKED PATIENT IF HE WOULD LIKE TO GET UP AND WALK IN [place] RIGHT NOW BUT HE STATED THAT HE GOT UP WITH PHYSICAL THERAPY EARLIER TODAY AND DID NOT WALK THAT FAR. STATES HE IS TURNING IN BED EVERY 2 HOURS LIKE WE DISCUSSED YESTERDAY. SCDs TO BLE. CALL LIGHT IN REACH.
--- NOTE | 2017-08-11 15:11 | NUR ---
DRSG TO LEFT GROIN CHANGED.
--- NOTE | 2017-08-11 17:33 | NUR ---
ASSISTED TO CHAIR SO HE CAN SIT UP WHILE EATING. COREG PO. CALL LIGHT IN REACH.
--- NOTE | 2017-08-11 20:00 | NUR ---
ASSESSMENT PER FLOWSHEET. DRSG TO LEFT GROIN AREA C/D/I. IV PATENT RT ARM OF NS AT 125CC'S/HR STAFF SERVICES MANAGER OF MORPHINE IN USE WITH SETTINGS AT 1MG Q10MIN W/10MG Q4H L/O. SCD'S ON WHILE IN BED. BED ALARM ON. SR UP X2 CALL LIGHT WITHIN REACH.
--- NOTE | 2017-08-11 21:15 | NUR ---
MEDS GIVEN PER MAR.
--- NOTE | 2017-08-12 | NUR ---
CONTINUES TO PUSH SENIOR WATER/WASTEWATER ENGINEER BUTTON UNTIL HE IS IN MAX DOSE LOCK OUT. RESTING AT THIS TIME.
--- NOTE | 2017-08-12 02:00 | NUR ---
EYES CLOSED RESPIRATIONS WITH EASE AND UNLABORED.
--- NOTE | 2017-08-12 04:52 | NUR ---
INC LARGE SOFT STOOL IN BED. PT STATES HE THOUGHT IT WAS GAS. PT TAKES HIS HANDS AND SMEARS STOOL ON HIS HANDS. COMPLETE BED BATH AND LINENS CHANGED PER DIVING SUPERVISOR.
--- NOTE | 2017-08-12 08:00 | NUR ---
ASSESSMENT PER FLOW SHEET.PT WITHOUT DISTRESS.FALL PREVENTION IN PLACE WITH BED ALARM,BAND AND SOCKS IN PLACE. PT REPORTS LOOSE STOOLS AND HAS INCONTINENT EPPISODES.REDNESS NOTED TO INNER BUTTOCKS.CALL LIGHT IN REACH.SCDS ON
[2017-08-12 08:44] VITALS: BP 116/61
--- NOTE | 2017-08-12 08:51 | NUR ---
SCR HAS IMPROVED. VANCOMYCIN TROUGH WAS 9.9. WILL BUMP HER UP TO 1.25 Q 24H.
--- NOTE | 2017-08-12 12:01 | NUR ---
LYING IN BED HAD ANOTHER LOOSE STOOL.
[2017-08-12 12:09] VITALS: BP 107/57
--- NOTE | 2017-08-12 13:54 | NUR ---
REMAINS WITHOUT CHANGE.CALL LIGHT IN REACH
--- NOTE | 2017-08-12 15:30 | NUR ---
CM SET UP HH WITH [facility] PER PATIENT'S REQUEST. PATIENT DISCHARGING HOME TODAY
[2017-08-12 16:16] VITALS: BP 113/64
[2017-08-12] MEDS ORDERED: VIBRAMYCIN 100100 MG PO (17:56)
[2017-08-12] MEDS ORDERED: HYDROCODON-ACE1 EAC7 PO (17:57)
--- NOTE | 2017-08-12 18:16 | NUR ---
DISCHARGE INSTRUCTIONS,STATES UNDERSTANDING.IV DCD WITH CATH TIP INTACT.
--- NOTE | 2017-08-12 18:22 | NUR ---
LEFT UNIT VIA WHEELCHAIR FOR TRANSPORT HOME
== END 2017-08-12 18:23 | disposition home health service (06) | DRG 862 ==
LOC: D.ER 14:02 → D.MS 21:50
PROVIDERS: Physician Assistant Medical; ADMIT Surgery
DX: T81.4XXA Infection following a procedure, initial encounter (principal); I50.43 Acute on chronic combined systolic (congestive) and diastolic (congestive) heart failure; L02.214 Cutaneous abscess of groin; I42.9 Cardiomyopathy, unspecified; A49.01 Methicillin susceptible Staphylococcus aureus infection, unspecified site; N18.3 Chronic kidney disease, stage 3 (moderate)

== ENCOUNTER 2017-08-22 08:10 | Emergency (ER) | payer MEDICARE ==
[2017-08-08 02:26] VITALS: BMI 21.3
[~2017-08-22 08:10] MED LIST changes: +ALEVE220 MG PO; +VIBRAMYCIN 100100 MG PO
== END 2017-08-22 09:37 | disposition home or self-care (01) ==
LOC: D.ER 08:10
DX: M79.604 Pain in right leg (principal)

== ENCOUNTER 2018-04-09 02:31 | Emergency (ER) | payer MEDICARE ==
[~2018-04-09] VITALS: Ht 167.6 cm; Wt 65.9 kg
[2018-04-09 02:35] VITALS: Ht 167.6 cm; Wt 65.9 kg
[2018-04-09] MEDS ORDERED: HYDROCODON-ACE1 EAC7 PO (03:33)
[2018-04-09 04:37] VITALS: BP 137/63
== END 2018-04-09 04:38 | disposition home or self-care (01) ==
LOC: D.ER 02:31
DX: S52.602A Unspecified fracture of lower end of left ulna, initial encounter for closed fracture (principal); W18.09XA Striking against other object with subsequent fall, initial encounter; Y93.89 Activity, other specified; Y92.019 Unspecified place in single-family (private) house as the place of occurrence of the external cause; I10 Essential (primary) hypertension; I50.9 Heart failure, unspecified

== ENCOUNTER 2018-04-17 18:29 | Emergency (ER) | payer MEDICARE ==
[~2018-04-17] VITALS: Ht 167.6 cm; Wt 65.9 kg
[2018-04-17 18:58] VITALS: Ht 167.6 cm; Wt 65.9 kg
[2018-04-17] MEDS ORDERED: HYDROCODON-ACE1 EAC7 PO (19:59)
[2018-04-17 20:36] VITALS: BP 138/52
== END 2018-04-17 20:39 | disposition home or self-care (01) ==
LOC: D.ER 18:29
DX: S52.612G Displaced fracture of left ulna styloid process, subsequent encounter for closed fracture with delayed healing (principal); X58.XXXD Exposure to other specified factors, subsequent encounter; I10 Essential (primary) hypertension; I50.9 Heart failure, unspecified

== ENCOUNTER 2018-05-11 16:12 | Inpatient (IN) | payer MEDICARE ==
[~2018-05-11] VITALS: Ht 167.6 cm; Wt 64.1 kg
--- NOTE | ~2018-05-11 | EC ---
PATIENT:TERRY SHAHID DATE OF SERVICE: 05/11/18 SEX: M MEDICAL RECORD: [id number] DATE OF : 44 LOCATION:D.M2 D.211 AGE OF PATIENT: 77 ADMISSION DATE: 05/11/18 REFERRING PHYSICIAN: INTERPRETING PHYSICIAN: MICHELLE PERKINS MD ECHOCARDIOGRAM REPORT ECHO CHARGES 4 ECHO COMPLETE Date: 05/12 CLINICAL DIAGNOSIS: AFIB ECHOCARDIOGRAPHIC MEASUREMENTS (adult normal given) AC root (d.<3.7cm) 3.9 cm LV Septum d (<1.2 cm> 1.2 cm Valve Excursion 1.1 cm LV Septum (systole) 1.3 cm Left Atria (s.<4.0cm> 2.9 cm LVPW d(<1.2cm) 1.0 cm RV (d.<2.3cm) 2.2 cm LVPW (sytole) 1.2 cm LV diastole(<5.6CM) 5.7 cm MV E-F(>70mm/sec) cm LV systole 5.3 cm LVOT Diameter 2.7 cm MV exc.(>10mm) cm Est.ejection fraction (50-75%) % DOPPLER: LVIT cm/sec A 60 cm/sec E 55 cm/sec LA cm/sec RVSP 43.3 mmHg LVOT 85 cm/sec AOP1/2T m/s Asc. Ao 233 cm/sec RVOT 57 cm/sec RA cm/sec PA 86 cm/sec AV Gradient Peak 21.6 mmHg AV Mean 13.1 mmHg AV Area 1.8 cm MV Gradient Peak 4.6 mmHg MV Mean 1.6 mmHg MV Area cm COMMENTS: Spoilage Worker: John BAUER Diamond Selector: 3 Dr. Goff TAPE# PACS Pericardial Effusion N DATE OF SERVICE: 05/12/2018 ADEQUATE 2D ECHO, COLOR FLOW, SPECTRAL DOPPLER AND M-MODE No LVH. LV internal dimensions are upper limits of normal, mildly dilated at 5.7 cm. 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 Aortic valve sclerosis without stenosis. Doppler interrogation of left atrium is normal. Mitral valve shows no prolapse. Moderate MR. Right-sided chambers are normal. Mild TR. ECHOCARDIOGRAM REPORT [id number] TERRY SHAHID TRANSINT:[id number] Voice Confirmation ID: [id number] DOCUMENT ID: [id number] MICHELLE PERKINS MD at 1630 CC: [id number] DICTATION DATE: 05/12/18 1305 KNIT TUBING DYER: 05/12/18 1330 ADM IN [facility] [address] [id number]
[2018-05-11 17:10] LABS: BASOPHILS 0.4 % (0-2); EOSINOPHILS 1.7 % (0-7); HEMATOCRIT 38.8 % (42.0-54.0); IMMATURE GRANULOCYTES 0.1 % (0-5); LYMPHOCYTES 21.5 % (15-50); MCH 28.7 pg (26.0-34.0); MCHC 33.5 g/dL (31.0-37.0); MCV 85.7 fL (80.0-100.0); MEAN PLATELET VOLUME 10.3 fL (7.4-10.4); MONOCYTES 12.6 % (2-11); NEUTROPHILS 63.7 % (40-80); RBC 4.53 10x6/uL (4.20-6.10); RDW 16.1 % (11.5-14.5); WBC 7.1 10x3/uL (4.8-10.8)
[2018-05-11 17:20] LABS: APTT 29.3 SECONDS (22.8-39.4); INR 1.01 (0.85-1.17); PROTIME 12.9 SECONDS (11.6-15.0)
[2018-05-11 17:25] LABS: PLATELET COUNT 244 10x3/uL (130-400)
[2018-05-11 17:28] LABS: ALBUMIN 3.3 g/dL (3.4-5.0); ALKALINE PHOSPHATASE 104 U/L (46-116); ALT (SGPT) 38 U/L (10-68); BILIRUBIN - TOTAL 0.61 mg/dL (0.2-1.3); CALC OSMOLALITY 274 mosm/kg (275-300); CALCIUM 8.8 mg/dL (8.5-10.1); CARBON DIOXIDE 26.6 mmol/L (21.0-32.0); CHLORIDE - SERUM 102 mmol/L (98-107); CREATININE - SERUM 2.5 mg/dL (0.6-1.3); GLUCOSE 109 mg/dL (74-106); POTASSIUM - SERUM 3.2 mmol/L (3.5-5.1); PROTEIN - SERUM 7.8 g/dL (6.4-8.2); SODIUM 135 mmol/L (136-145); UREA NITROGEN 23 mg/dL (7-18); eGFR NON AFRICAN AMERICAN 27 mL/min (90-120)
[2018-05-11 17:39] LABS: CKMB 0.9 U/L (0.0-3.6); CREATINE KINASE 63 UL (21-232)
[2018-05-11 17:41] LABS: TROPONIN-I < 0.017 ng/mL (0.000-0.060)
[2018-05-11 18:03] LABS: APPEARANCE CLEAR (CLEAR); BILIRUBIN NEGATIVE (NEGATIVE); COLOR YELLOW (YELLOW); GLUCOSE NEGATIVE (NEGATIVE); KETONE NEGATIVE (NEGATIVE); NITRITE NEGATIVE (NEGATIVE); PROTEIN NEGATIVE (NEGATIVE); SPECIFIC GRAVITY 1.015 (1.005-1.020); UROBILINOGEN NORMAL (NORMAL)
[2018-05-11 20:39] VITALS: BP 138/61
[2018-05-12] VITALS (7 sets, daily range): BP systolic 104–138; BP diastolic 46–61; BMI 24.2
[2018-05-12 04:36] LABS: BASOPHILS 0.3 % (0-2); EOSINOPHILS 2.2 % (0-7); HEMOGLOBIN 12.2 g/dL (13.5-17.5); IMMATURE GRANULOCYTES 0.2 % (0-5); LYMPHOCYTES 21.5 % (15-50); MCH 28.6 pg (26.0-34.0); MCV 86.7 fL (80.0-100.0); MEAN PLATELET VOLUME 10.4 fL (7.4-10.4); MONOCYTES 11.3 % (2-11); NEUTROPHILS 64.5 % (40-80); PLATELET COUNT 238 10x3/uL (130-400); RBC 4.27 10x6/uL (4.20-6.10); RDW 16.3 % (11.5-14.5)
[2018-05-12 04:54] LABS: ALBUMIN 2.7 g/dL (3.4-5.0); BILIRUBIN - TOTAL 0.52 mg/dL (0.2-1.3); CALCIUM 8.3 mg/dL (8.5-10.1); CARBON DIOXIDE 29.8 mmol/L (21.0-32.0); CREATININE - SERUM 2.2 mg/dL (0.6-1.3); PROTEIN - SERUM 6.5 g/dL (6.4-8.2)
[2018-05-12 04:59] LABS: POTASSIUM - SERUM 3.8 mmol/L (3.5-5.1)
[2018-05-13] VITALS (8 sets, daily range): BP systolic 126–152; BP diastolic 50–68; Ht 167.6 cm; Wt 64.1 kg
[2018-05-13 04:33] LABS: BASOPHILS 0.2 % (0-2); EOSINOPHILS 2.6 % (0-7); HEMOGLOBIN 10.6 g/dL (13.5-17.5); IMMATURE GRANULOCYTES 0.2 % (0-5); LYMPHOCYTES 21.5 % (15-50); MCH 28.1 pg (26.0-34.0); MCHC 32.1 g/dL (31.0-37.0); MCV 87.5 fL (80.0-100.0); MEAN PLATELET VOLUME 10.2 fL (7.4-10.4); MONOCYTES 9.2 % (2-11); NEUTROPHILS 66.3 % (40-80); PLATELET COUNT 198 10x3/uL (130-400); RBC 3.77 10x6/uL (4.20-6.10); RDW 16.5 % (11.5-14.5); WBC 5.7 10x3/uL (4.8-10.8)
[2018-05-13 04:53] LABS: ALBUMIN 2.3 g/dL (3.4-5.0); ANION GAP 6.4 mmol/L (8-16); BILIRUBIN - TOTAL 0.3 mg/dL (0.2-1.3); CARBON DIOXIDE 30.2 mmol/L (21.0-32.0); CREATININE - SERUM 1.8 mg/dL (0.6-1.3); POTASSIUM - SERUM 3.6 mmol/L (3.5-5.1); PROTEIN - SERUM 5.8 g/dL (6.4-8.2)
[2018-05-14] VITALS (7 sets, daily range): BP systolic 123–158; BP diastolic 63–79
[2018-05-14 04:41] LABS: BASOPHILS 0.2 % (0-2); EOSINOPHILS 4.5 % (0-7); HEMATOCRIT 37.3 % (42.0-54.0); HEMOGLOBIN 12.4 g/dL (13.5-17.5); IMMATURE GRANULOCYTES 0.2 % (0-5); LYMPHOCYTES 15.5 % (15-50); MCH 29.2 pg (26.0-34.0); MCHC 33.2 g/dL (31.0-37.0); MEAN PLATELET VOLUME 10.1 fL (7.4-10.4); MONOCYTES 10.2 % (2-11); NEUTROPHILS 69.4 % (40-80); PLATELET COUNT 216 10x3/uL (130-400); RBC 4.24 10x6/uL (4.20-6.10); RDW 16.4 % (11.5-14.5)
[2018-05-14 04:44] LABS: WBC 8.3 10x3/uL (4.8-10.8)
[2018-05-14 04:54] LABS: ALBUMIN 2.5 g/dL (3.4-5.0); ANION GAP 4.3 mmol/L (8-16); BILIRUBIN - TOTAL 0.36 mg/dL (0.2-1.3); CALCIUM 8.4 mg/dL (8.5-10.1); CREATININE - SERUM 1.5 mg/dL (0.6-1.3); PROTEIN - SERUM 6.3 g/dL (6.4-8.2)
[2018-05-14 04:55] LABS: POTASSIUM - SERUM 4.3 mmol/L (3.5-5.1)
[2018-05-14] MEDS ORDERED: CORDARONE200 MG PO (11:26)
[2018-05-14] MEDS ORDERED: K-TAB10 MEQ PO (11:27)
== END 2018-05-14 15:47 | disposition home health service (06) | DRG 309 ==
LOC: D.ER 16:12 → D.EDHOLD 19:34 → D.M2 19:34
PROVIDERS: Family Medicine
DX: R00.1 Bradycardia, unspecified (principal); I13.0 Hypertensive heart and chronic kidney disease with heart failure and stage 1 through stage 4 chronic kidney disease, or unspecified chronic kidney disease; N18.3 Chronic kidney disease, stage 3 (moderate); I50.9 Heart failure, unspecified; R55 Syncope and collapse; I42.9 Cardiomyopathy, unspecified; Z87.891 Personal history of nicotine dependence

== ENCOUNTER → 2018-08-19 08:17 | Outpatient (CLI) | payer MEDICARE, MEDICAID ==
[2018-05-13 10:44] VITALS: BMI 22.2
[~2018-08-19 08:17] MED LIST changes: +K-TAB10 MEQ PO
== END | disposition home or self-care (01) ==
LOC: D.US 08:17
DX: I12.9 Hypertensive chronic kidney disease with stage 1 through stage 4 chronic kidney disease, or unspecified chronic kidney disease (principal); N18.3 Chronic kidney disease, stage 3 (moderate); E87.6 Hypokalemia; Z68.23 Body mass index [BMI] 23.0-23.9, adult

== ENCOUNTER → 2018-12-17 08:40 | Outpatient (CLI) | payer MEDICARE, MEDICAID ==
[2018-05-13 10:44] VITALS: BMI 22.2
== END | disposition home or self-care (01) ==
LOC: D.CT 08:40
PROVIDERS: ATTEND Family Medicine
DX: R19.00 Intra-abdominal and pelvic swelling, mass and lump, unspecified site (principal)

== ENCOUNTER 2018-12-21 10:18 | Inpatient (IN) | payer MEDICARE, MEDICAID ==
[~2018-12-21] VITALS: Ht 162.6 cm; Wt 66.7 kg
[2018-12-21 12:03] LABS: BASOPHILS 0.3 % (0-2); EOSINOPHILS 2.2 % (0-7); HEMOGLOBIN 12.6 g/dL (13.5-17.5); IMMATURE GRANULOCYTES 0.1 % (0-5); MCH 28.1 pg (26.0-34.0); MCHC 32.3 g/dL (31.0-37.0); MCV 86.9 fL (80.0-100.0); MEAN PLATELET VOLUME 9.8 fL (7.4-10.4); MONOCYTES 8.1 % (2-11); NEUTROPHILS 72.3 % (40-80); RBC 4.49 10x6/uL (4.20-6.10); RDW 16.8 % (11.5-14.5); WBC 9.6 10x3/uL (4.8-10.8)
[2018-12-21 12:04] LABS: PLATELET COUNT 290 10x3/uL (130-400)
[2018-12-21 12:26] LABS: ALBUMIN 3.4 g/dL (3.4-5.0); ANION GAP 10.1 mmol/L (8-16); BILIRUBIN - TOTAL 0.34 mg/dL (0.2-1.3); CALCIUM 8.9 mg/dL (8.5-10.1); CARBON DIOXIDE 30.5 mmol/L (21.0-32.0); CREATININE - SERUM 2.3 mg/dL (0.6-1.3); POTASSIUM - SERUM 4.6 mmol/L (3.5-5.1); PROTEIN - SERUM 8.1 g/dL (6.4-8.2)
[2018-12-21 13:17] VITALS: BP 108/41; BMI 25.3
[2018-12-21 13:17] LABS: APPEARANCE CLEAR (CLEAR); BILIRUBIN NEGATIVE (NEGATIVE); COLOR STRAW (YELLOW); GLUCOSE NEGATIVE (NEGATIVE); KETONE NEGATIVE (NEGATIVE); NITRITE NEGATIVE (NEGATIVE); PROTEIN NEGATIVE (NEGATIVE); SPECIFIC GRAVITY 1.005 (1.005-1.020); UROBILINOGEN NORMAL (NORMAL)
--- NOTE | 2018-12-21 18:25 | NUR ---
STATES PAIN BETTER.REMAINS WITHOUT DISTRESS.CONT PLAN OF CARE
[2018-12-21 20:00] VITALS: BP 110/68
[2018-12-22 04:00] VITALS: BP 121/60
[2018-12-22 05:33] LABS: BASOPHILS 0.5 % (0-2); EOSINOPHILS 3.9 % (0-7); HEMATOCRIT 34.3 % (42.0-54.0); HEMOGLOBIN 10.8 g/dL (13.5-17.5); IMMATURE GRANULOCYTES 0.2 % (0-5); LYMPHOCYTES 20.8 % (15-50); MCH 27.3 pg (26.0-34.0); MCHC 31.5 g/dL (31.0-37.0); MCV 86.6 fL (80.0-100.0); MEAN PLATELET VOLUME 10.2 fL (7.4-10.4); MONOCYTES 10.6 % (2-11); PLATELET COUNT 248 10x3/uL (130-400); RBC 3.96 10x6/uL (4.20-6.10); RDW 16.5 % (11.5-14.5)
[2018-12-22 05:48] LABS: ALBUMIN 2.6 g/dL (3.4-5.0); ANION GAP 10.2 mmol/L (8-16); BILIRUBIN - TOTAL 0.42 mg/dL (0.2-1.3); CALCIUM 8.3 mg/dL (8.5-10.1); CARBON DIOXIDE 26.7 mmol/L (21.0-32.0); PROTEIN - SERUM 6.5 g/dL (6.4-8.2)
[2018-12-22 05:53] LABS: WBC 5.8 10x3/uL (4.8-10.8)
[2018-12-22 07:00] LABS: POTASSIUM - SERUM 3.9 mmol/L (3.5-5.1)
--- NOTE | 2018-12-22 08:21 | NUR ---
PT RESTING IN BED. NPO EXCEPT ICE. NO S.S OF ACUTE DISTRESS. CL IN PLACE.
[2018-12-22 09:41] VITALS: BP 130/61
[2018-12-22 11:20] LABS: APPEARANCE CLEAR (CLEAR); BILIRUBIN NEGATIVE (NEGATIVE); COLOR YELLOW (YELLOW); GLUCOSE NEGATIVE (NEGATIVE); KETONE NEGATIVE (NEGATIVE); NITRITE NEGATIVE (NEGATIVE); PROTEIN NEGATIVE (NEGATIVE); UROBILINOGEN NORMAL (NORMAL)
[2018-12-22 14:16] VITALS: Ht 162.6 cm; Wt 66.7 kg
[2018-12-22 15:09] VITALS: BP 133/61
[2018-12-22 16:00] VITALS: BP 129/64
--- NOTE | 2018-12-22 19:15 | NUR ---
PT RESTING IN BED. NO S/S OF ACUTE DISTRESS. PT HAD X1 LARGE BM LOOSE RUNNY STOOL NOTED. CL IN PLACE.
[2018-12-22 20:00] VITALS: BP 135/66
[2018-12-23] VITALS: BP 109/51
[2018-12-23 04:00] VITALS: BP 126/70
[2018-12-23 07:13] LABS: BASOPHILS 0.7 % (0-2); EOSINOPHILS 3.9 % (0-7); HEMATOCRIT 34.4 % (42.0-54.0); HEMOGLOBIN 10.9 g/dL (13.5-17.5); IMMATURE GRANULOCYTES 0.2 % (0-5); LYMPHOCYTES 14.8 % (15-50); MCH 27.3 pg (26.0-34.0); MCHC 31.7 g/dL (31.0-37.0); MCV 86.2 fL (80.0-100.0); MEAN PLATELET VOLUME 10.1 fL (7.4-10.4); MONOCYTES 8.3 % (2-11); NEUTROPHILS 72.1 % (40-80); PLATELET COUNT 263 10x3/uL (130-400); RBC 3.99 10x6/uL (4.20-6.10); RDW 16.3 % (11.5-14.5); WBC 6.1 10x3/uL (4.8-10.8)
[2018-12-23 07:25] LABS: ANION GAP 13.2 mmol/L (8-16); CALCIUM 8.4 mg/dL (8.5-10.1); CARBON DIOXIDE 22.9 mmol/L (21.0-32.0); CREATININE - SERUM 1.5 mg/dL (0.6-1.3); POTASSIUM - SERUM 4.1 mmol/L (3.5-5.1)
--- NOTE | 2018-12-23 07:47 | NUR ---
PT RESTING IN BED. NO BM LAST NIGHT NOTED. NO S/S OF ACUTE DISTRESS. CL IN PLACE.
[2018-12-23 08:36] VITALS: BP 136/63
[2018-12-23] MEDS ORDERED: LEVAQUIN750 MG PO (09:53)
[2018-12-23] MEDS ORDERED: FLAGYL500 MG PO (09:54)
[2018-12-23] MEDS ORDERED: MIRALAX17 GM PO (09:55)
--- NOTE | 2018-12-23 11:34 | MORECARE ---
CASE MANAGEMENT DISCHARGE SUMMARY PATIENT: TERRY SHAHID UNIT: [id number] ADM DATE: 12/21/18 AGE: 78 : 42 SEX: M ROOM/BED: D.2220 AUTHOR: ELEAZARDOC PHYSICIAN: REFERRING PHYSICIAN: CARIDAD MARKS MD DATE OF SERVICE: 12/23/18 Discharge Plan Patient Name: TERRY SHAHID Facility: [facility]:[place] : 1940 Planned Disposition: Home Health Service Anticipated Discharge Date: Discharge Date: Expected LOS: Initial Reviewer: [email or web address] Initial Review Date: 12/21/2018 Generated: 12/23/18 12:34 pm Comments DCP- Discharge Planning Updated by [email or web address]: Lindsey Deng on 12/23/18 10:[address] Patient Name: TERRY SHAHID Admission Status: Elective Accout number: [id number] Admission Date: 12-21-2018 : 1940 Admission Diagnosis: Attending: CARIDAD MARKS Current LOS: 2 Anticipated DC Date: Planned Disposition: Home Health Service Primary Insurance: [employer] CHOICE PPO MCR ADVANT Discharge Planning Comments: CM met with patient to complete initial dc planning assessment. CM educated patient on the CM role and verbal consent given by patient to complete assessment. Patient lives at home where he is independent with his care. At discharge patient plans to return home and feels this is a safe discharge. CM discussed availability of home health, rehab services, and medical equipment. Patient has a cane and a walker. He uses meals on wheels. He stated that his daughter will be the one to drive him home today & he would like home health. ADAM with [facility], will send the referral. I spoke with Viktoria. CM will continue to follow and will assist as needed with dc plans/needs. Personal Vehicle Advisor: Lindsey Deng DCPIA - Discharge Planning Initial Assessment Updated by [email or web address]: Lindsey Deng on 12/23/18 11:29 am * Is the patient Alert and Oriented? Yes * How many steps to enter\exit or inside your home? * PCP FARO * Pharmacy [facility] * Preadmission Environment Home Alone * ADLs Independent * Equipment Cane Rolling Walker * List name and contact numbers for known caregivers / representatives who currently or will assist patient after discharge: CARLOS [phone] * Verbal permission to speak to the caregivers and representatives has been obtained from the patient. N/A * Community resources currently utilized Meals on Wheels * Additional services required to return to the preadmission environment? Yes * Can the patient safely return to the preadmission environment? Yes * Has this patient been hospitalized within the prior 30 days at any hospital? No Coverage Notice Reviewer: [id number] Gi Deng Notice Issued Date-Time: 12/23/2018 11:20 Notice Type: Patient Choice Letter Notice Delivered To: Patient Relationship to Patient: Foreign Correspondent Name: Delivery Method: HAND - Hand Delivered Nela Days: Prior Verbal Notification: Recipient Understood Notice: Yes Recipient Signature: Yes Med Rec Note Co-signed by Attending: Coverage Notice Comment: home health ADAM Patient Name: TERRY SHAHID Page [phone] at 1134 All edits/amendments must be made on the electronic document DICTATION DATE: 12/23/18 1134 DIGITAL SALES MANAGER: SHERIN 12/23/18 1134 RPT#: [id number] DC DATE: STATUS: ADM IN [facility] [address] [place] [address] END OF REPORT
--- NOTE | 2018-12-23 11:43 | MORECARE ---
CASE MANAGEMENT DISCHARGE SUMMARY PATIENT: TERRY SHAHID UNIT: [id number] ADM DATE: 12/21/18 AGE: 78 : 42 SEX: M ROOM/BED: D.2220 AUTHOR: ELEAZARDOC PHYSICIAN: REFERRING PHYSICIAN: CARIDAD MARKS MD DATE OF SERVICE: 12/23/18 Discharge Plan Patient Name: TERRY SHAHID Facility: [facility]:[place] : 1940 Planned Disposition: Home Health Service Anticipated Discharge Date: Discharge Date: Expected LOS: Initial Reviewer: [email or web address] Initial Review Date: 12/21/2018 Generated: 12/23/18 12:43 pm Comments DCP- Discharge Planning Updated by [email or web address]: Lindsey Deng on 12/23/18 10:[address] Patient Name: TERRY SHAHID Admission Status: Elective Accout number: [id number] Admission Date: 12-21-2018 : 1940 Admission Diagnosis: Attending: CARIDAD MARKS Current LOS: 2 Anticipated DC Date: Planned Disposition: Home Health Service Primary Insurance: [employer] CHOICE PPO MCR ADVANT Discharge Planning Comments: CM met with patient to complete initial dc planning assessment. CM educated patient on the CM role and verbal consent given by patient to complete assessment. Patient lives at home where he is independent with his care. At discharge patient plans to return home and feels this is a safe discharge. CM discussed availability of home health, rehab services, and medical equipment. Patient has a cane and a walker. He uses meals on wheels. He stated that his daughter will be the one to drive him home today & he would like home health. ADAM with [facility], will send the referral. I spoke with Viktoria. CM will continue to follow and will assist as needed with dc plans/needs. Geological Aide: Lindsey Deng DCPIA - Discharge Planning Initial Assessment Updated by [email or web address]: Lindsey Deng on 12/23/18 11:29 am * Is the patient Alert and Oriented? Yes * How many steps to enter\exit or inside your home? * PCP FARO * Pharmacy [facility] * Preadmission Environment Home Alone * ADLs Independent * Equipment Cane Rolling Walker * List name and contact numbers for known caregivers / representatives who currently or will assist patient after discharge: CARLOS [phone] * Verbal permission to speak to the caregivers and representatives has been obtained from the patient. N/A * Community resources currently utilized Meals on Wheels * Additional services required to return to the preadmission environment? Yes * Can the patient safely return to the preadmission environment? Yes * Has this patient been hospitalized within the prior 30 days at any hospital? No External Providers External Provider: [facility] Next Contact Date: Service Request Date: Service Type: Resolution: Reviewer: Comments: Coverage Notice Reviewer: [id number] - Lindsey Deng Notice Issued Date-Time: 12/23/2018 11:20 Notice Type: Patient Choice Letter Notice Delivered To: Patient Relationship to Patient: Roof Slater Name: Delivery Method: HAND - Hand Delivered Nela Days: Prior Verbal Notification: Recipient Understood Notice: Yes Recipient Signature: Yes Med Rec Note Co-signed by Attending: Coverage Notice Comment: home health ADAM Last DP export: 12/23/18 10:34 a Patient Name: TERRY SHAHID Page 08015 at 1143 All edits/amendments must be made on the electronic document DICTATION DATE: 12/23/181141 ELECTRIC TAPE SLITTER: SHERIN 12/23/181141 RPT#: [id number] DC DATE: STATUS: ADM IN [facility] [address] [place] [address] END OF REPORT
[2018-12-23 12:07] VITALS: BP 128/67
--- NOTE | 2018-12-23 13:49 | NUR ---
DC IV WITH TIP IN TACT. DC INSTRUCTIONS AND EDUCATION DONE WITH PT. ALL BELONGINGS SENT WITH DAUGHTER. VOLUNTEER TOOK PT DOWN VIA WC. NO S/S OF ACUTE DISTRESS.
== END 2018-12-23 13:51 | disposition home health service (06) | DRG 392 ==
LOC: D.SDCHOLD 10:18 → D.MS 10:49
PROVIDERS: Family Medicine; ADMIT Internal Medicine Nephrology; ATTEND Internal Medicine Nephrology
DX: K57.20 Diverticulitis of large intestine with perforation and abscess without bleeding (principal); I13.0 Hypertensive heart and chronic kidney disease with heart failure and stage 1 through stage 4 chronic kidney disease, or unspecified chronic kidney disease; I43 Cardiomyopathy in diseases classified elsewhere; I50.22 Chronic systolic (congestive) heart failure; N18.3 Chronic kidney disease, stage 3 (moderate)

== ENCOUNTER 2018-12-28 20:44 | Inpatient (IN) | payer MEDICARE, MEDICAID ==
[~2018-12-28] VITALS: Ht 162.6 cm; Wt 66.8 kg
--- NOTE | ~2018-12-28 | EC ---
PATIENT:TERRY SHAHID DATE OF SERVICE: 12/28/18 SEX: M MEDICAL RECORD: [id number] DATE OF : 44 LOCATION:D.M2 D.210 AGE OF PATIENT: 78 ADMISSION DATE: 12/28/18 REFERRING PHYSICIAN: INTERPRETING PHYSICIAN: MARGARITO ZAMORA MD ECHOCARDIOGRAM REPORT ECHO CHARGES 4 ECHO COMPLETE Date: 12/30/18 CLINICAL DIAGNOSIS: VERTIGO HX OF IRREGULAR HEART BEAT ECHOCARDIOGRAPHIC MEASUREMENTS (adult normal given) AC root (d.<3.7cm) 2.7 cm LV Septum d (<1.2 cm> 1.2 cm Valve Excursion 1.3 cm LV Septum (systole) 1.3 cm Left Atria (s.<4.0cm> 4.0 cm LVPW d(<1.2cm) 1.3 cm RV (d.<2.3cm) 4.1 cm LVPW (sytole) 1.4 cm LV diastole(<5.6CM) 6.7 cm MV E-F(>70mm/sec) cm LV systole 5.6 cm LVOT Diameter 1.8 cm MV exc.(>10mm) 1.6 cm Est.ejection fraction (50-75%) % DOPPLER: LVIT cm/sec A 108 cm/sec E 75.0 cm/sec LA cm/sec RVSP 49 mmHg LVOT 76 cm/sec AOP1/2T 475 m/s Asc. Ao 197 cm/sec RVOT cm/sec RA cm/sec PA cm/sec AV Gradient Peak 15.45mmHg AV Mean 8.75 mmHg AV Area 1.0 cm MV Gradient Peak 4.74 mmHg MV Mean 1.65 mmHg MV Area cm COMMENTS: Qualitative Field Coordinator: Isaura PINTO Lei Maker: 1 Dr. Zamora TAPE# PACS Pericardial Effusion N DATE OF SERVICE: 12/30/2018 FINDINGS: 1. Left ventricular chamber size is mildly dilated. Left ventricular systolic function is mildly reduced. Overall ejection fraction is 40% to 45%. 2. Left atrium is upper limits of normal at 4.0 cm. Right atrium and right ventricular chamber sizes are mildly dilated. 3. Valvular structures: Aortic valve demonstrates mild calcific aortic stenosis. Valve area calculates to 1.5 cm-squared with gradient of 15 mm across the valve. The remaining valvular structures have normal structure and motion. ECHOCARDIOGRAM REPORT [id number] TERRY SHAHID 4. Doppler interrogation elsewise reveals npyj-hk-ypqiktld aortic insufficiency, cmak-eb-mgftltge tricuspid regurgitation, and xrja-bv-txwodirb mitral regurgitation. No other valvular insufficiency or stenosis. Pulmonary systolic pressure is estimated at 50 mmHg. 5. No evidence of pericardial effusion or left ventricular thrombus. TRANSINT:[id number] Voice Confirmation ID: [id number] DOCUMENT ID: [id number] MARGARITO ZAMORA MD CC: [id number] DICTATION DATE: 12/30/181650 RECLAMATION WORKER: 12/30/181913 ADM IN [facility] [address] [id number]
[~2018-12-28 20:44] MED LIST changes: +FLAGYL500 MG PO; +LEVAQUIN750 MG PO; +MIRALAX17 GM PO
--- NOTE | 2018-12-28 21:30 | NUR ---
PT GONE FOR SCANS VIA STRETCHER AT THIS TIME.
[2018-12-28 21:55] VITALS: BP 120/60
[2018-12-28 22:07] LABS: BASOPHILS 0.1 % (0-2); EOSINOPHILS 0.2 % (0-7); HEMATOCRIT 35.6 % (42.0-54.0); IMMATURE GRANULOCYTES 0.1 % (0-5); LYMPHOCYTES 12.3 % (15-50); MCH 28.2 pg (26.0-34.0); MCHC 33.7 g/dL (31.0-37.0); MCV 83.6 fL (80.0-100.0); MEAN PLATELET VOLUME 9.5 fL (7.4-10.4); MONOCYTES 10.4 % (2-11); NEUTROPHILS 76.9 % (40-80); PLATELET COUNT 264 10x3/uL (130-400); RBC 4.26 10x6/uL (4.20-6.10); RDW 16.9 % (11.5-14.5); WBC 8.5 10x3/uL (4.8-10.8)
[2018-12-28 22:30] LABS: ALBUMIN 3.1 g/dL (3.4-5.0); ALKALINE PHOSPHATASE 85 U/L (46-116); ALT (SGPT) 35 U/L (10-68); BILIRUBIN - TOTAL 0.44 mg/dL (0.2-1.3); CALC OSMOLALITY 283 mosm/kg (275-300); CALCIUM 8.7 mg/dL (8.5-10.1); CARBON DIOXIDE 26.3 mmol/L (21.0-32.0); CHLORIDE - SERUM 105 mmol/L (98-107); CREATININE - SERUM 2.2 mg/dL (0.6-1.3); GLUCOSE 116 mg/dL (74-106); POTASSIUM - SERUM 3.3 mmol/L (3.5-5.1); SODIUM 140 mmol/L (136-145); UREA NITROGEN 24 mg/dL (7-18); eGFR NON AFRICAN AMERICAN 31 mL/min (90-120)
[2018-12-28 22:31] LABS: APPEARANCE CLEAR (CLEAR); COLOR YELLOW (YELLOW)
[2018-12-28 22:32] LABS: BILIRUBIN NEGATIVE (NEGATIVE); GLUCOSE NEGATIVE (NEGATIVE); KETONE NEGATIVE (NEGATIVE); NITRITE NEGATIVE (NEGATIVE); PROTEIN TRACE mg/dL (NEGATIVE); UROBILINOGEN NORMAL (NORMAL)
[2018-12-28 22:35] LABS: BACTERIA FEW /hpf (NONE SEEN); RED CELLS - URINE OCC /hpf (0-5); WHITE CELLS - URINE 0-5 /hpf (0-5)
[2018-12-28 22:45] LABS: AMYLASE - SERUM 32 U/L (25-115); CREATINE KINASE 81 UL (21-232); LIPASE 61 U/L (73-393); PRO BNP 1668 pg/mL (0-450); TROPONIN-I 0.052 ng/mL (0.000-0.060)
[2018-12-28 22:48] VITALS: BP 127/66
[2018-12-29] VITALS (7 sets, daily range): BP systolic 102–138; BP diastolic 59–86; BMI 27.5; BMI 25.2
[2018-12-29 06:22] LABS: ANION GAP 12.7 mmol/L (8-16); CALCIUM 8.6 mg/dL (8.5-10.1); CARBON DIOXIDE 24.5 mmol/L (21.0-32.0); CREATININE - SERUM 2.1 mg/dL (0.6-1.3); MAGNESIUM - SERUM 1.8 mg/dL (1.8-2.4); POTASSIUM - SERUM 3.2 mmol/L (3.5-5.1)
[2018-12-29 06:35] LABS: BASOPHILS 0.1 % (0-2); EOSINOPHILS 0.2 % (0-7); HEMATOCRIT 33.4 % (42.0-54.0); HEMOGLOBIN 11.1 g/dL (13.5-17.5); IMMATURE GRANULOCYTES 0.2 % (0-5); LYMPHOCYTES 15.4 % (15-50); MCH 27.5 pg (26.0-34.0); MCHC 33.2 g/dL (31.0-37.0); MCV 82.7 fL (80.0-100.0); MONOCYTES 10.3 % (2-11); NEUTROPHILS 73.8 % (40-80); PLATELET COUNT 275 10x3/uL (130-400); RBC 4.04 10x6/uL (4.20-6.10); RDW 16.8 % (11.5-14.5); WBC 8.1 10x3/uL (4.8-10.8)
--- NOTE | 2018-12-29 08:30 | NUR ---
PT RESTING IN BED, C/O TENDERNESS TO ABD. SHIFT ASSESSMENT PERFORMED, CALL LIGHT WITHIN REACH, WILL CONT TO FOLLOW PLAN OF CARE
--- NOTE | 2018-12-29 09:21 | NUR ---
RADIOLOGY HERE TO TAKE PT FOR MRI
[2018-12-29 19:02] LABS: CREATINE KINASE 107 UL (21-232); TROPONIN-I 0.057 ng/mL (0.000-0.060)
--- NOTE | 2018-12-29 19:12 | NUR ---
PT NOT IN THE ROOM AT THIS TIME. OUT FOR CT SCAN.
--- NOTE | 2018-12-29 20:15 | NUR ---
RECIEVED BEDSIDE REPORT. VSS, AA0X3, RR EVEN AND UNLABORED. PT HAD AN INCONTINENT BM WHEN HE RETURNED FROM CT SCAN. CLEANED PT UP AND HELP PT PUT NEW DEPEND. PT ABDOMEN APPEARS DISTENDED ON ASSESSMENT, PT STATES ITS NOT HURTING AT THIS MOMENT. FAMILY AT BEDSIDE. CL IN REACH, BED IN LOW, SR UP X2.
[2018-12-29 23:37] LABS: CKMB 0.9 U/L (0.0-3.6); CREATINE KINASE 107 UL (21-232); TROPONIN-I 0.069 ng/mL (0.000-0.060)
[2018-12-30] VITALS: BP 106/63
[2018-12-30 04:00] VITALS: BP 108/55
[2018-12-30 05:54] LABS: BASOPHILS 0.3 % (0-2); EOSINOPHILS 1.1 % (0-7); HEMATOCRIT 33.1 % (42.0-54.0); HEMOGLOBIN 10.8 g/dL (13.5-17.5); IMMATURE GRANULOCYTES 0.1 % (0-5); LYMPHOCYTES 15.4 % (15-50); MCH 27.3 pg (26.0-34.0); MCHC 32.6 g/dL (31.0-37.0); MCV 83.8 fL (80.0-100.0); MEAN PLATELET VOLUME 10.1 fL (7.4-10.4); MONOCYTES 9.8 % (2-11); NEUTROPHILS 73.3 % (40-80); PLATELET COUNT 257 10x3/uL (130-400); RBC 3.95 10x6/uL (4.20-6.10); WBC 7.9 10x3/uL (4.8-10.8)
[2018-12-30 06:24] LABS: ALBUMIN 2.6 g/dL (3.4-5.0); ALKALINE PHOSPHATASE 72 U/L (46-116); CALCIUM 8.1 mg/dL (8.5-10.1); CHLORIDE - SERUM 109 mmol/L (98-107); CKMB 0.9 U/L (0.0-3.6); CREATINE KINASE 110 UL (21-232); CREATININE - SERUM 1.6 mg/dL (0.6-1.3); GLUCOSE 87 mg/dL (74-106); MAGNESIUM - SERUM 1.9 mg/dL (1.8-2.4); PROTEIN - SERUM 6.2 g/dL (6.4-8.2); SODIUM 141 mmol/L (136-145); TROPONIN-I 0.056 ng/mL (0.000-0.060); eGFR NON AFRICAN AMERICAN 45 mL/min (90-120)
[2018-12-30 06:25] LABS: ALT (SGPT) 24 U/L (10-68); CALC OSMOLALITY 280 mosm/kg (275-300); POTASSIUM - SERUM 3.8 mmol/L (3.5-5.1); UREA NITROGEN 16 mg/dL (7-18)
--- NOTE | 2018-12-30 07:10 | NUR ---
REPORT RECEIVED FROM COURTESY VAN DRIVER AND PATIENT CARE RESUMED. VSS. PATIENT LAYING IN BED AWAKE, ALERT AND ORIENTED X 4. VSS. PATIENT DENIES ANY NEEDS OR PAIN. WILL CONTINUE WITH PLAN OF CARE. SR UP X 2 BED IN LOW POSITION AND CALL LIGHT IN REACH.
[2018-12-30 07:23] VITALS: BP 109/54
[2018-12-30 11:30] VITALS: BP 123/55
[2018-12-30 11:44] VITALS: BP 123/55
[2018-12-30 13:11] VITALS: Ht 162.6 cm; Wt 66.8 kg
--- NOTE | 2018-12-30 15:49 | NUR ---
PATIENT LAYING IN BED ON BACK WITH EYES CLOSED AND BREATHING EVENLY. WILL CONTINUE TO MONITOR. SR UP X 2 BED IN LOW POSTION AND CALL LIGHT IN REACH.
[2018-12-30 20:00] VITALS: BP 92/50
--- NOTE | 2018-12-30 20:00 | NUR ---
RECIEVED BEDSIDE REPORT. ROUNDS COMPLETED. VSS, AAOX3. NO S/S OF RR DISTRESS. PT STATES ABDOMINAL PAIN IS A LITTLE BETTER THAN WHAT IT WAS 2HRS AGO. PT DIBIES ANY FURTHER NEEDS FOR COMFORT CARE. WILL CPOC. CL IN REACH, BED IN LOW, SR UP X2.
[2018-12-31 04:00] VITALS: BP 107/52
[2018-12-31 04:46] LABS: BASOPHILS 0.3 % (0-2); EOSINOPHILS 2.4 % (0-7); HEMATOCRIT 31.5 % (42.0-54.0); HEMOGLOBIN 10.5 g/dL (13.5-17.5); IMMATURE GRANULOCYTES 0.2 % (0-5); LYMPHOCYTES 14.2 % (15-50); MCHC 33.3 g/dL (31.0-37.0); MEAN PLATELET VOLUME 9.5 fL (7.4-10.4); MONOCYTES 10.1 % (2-11); NEUTROPHILS 72.8 % (40-80); PLATELET COUNT 230 10x3/uL (130-400); RBC 3.75 10x6/uL (4.20-6.10); RDW 17.2 % (11.5-14.5); WBC 6.6 10x3/uL (4.8-10.8)
[2018-12-31 05:10] LABS: ALBUMIN 2.3 g/dL (3.4-5.0); ANION GAP 10.4 mmol/L (8-16); BILIRUBIN - TOTAL 0.38 mg/dL (0.2-1.3); CREATININE - SERUM 1.3 mg/dL (0.6-1.3); POTASSIUM - SERUM 3.4 mmol/L (3.5-5.1); PROTEIN - SERUM 5.6 g/dL (6.4-8.2)
--- NOTE | 2018-12-31 07:28 | NUR ---
PT ASLEEP, DID NOT WAKE WHEN I ENTERED. DID NOT FURTHER DISTURB. CL IN REACH. SRX2.
[2018-12-31 07:44] VITALS: BP 126/68
[2018-12-31 11:18] VITALS: BP 105/52
--- NOTE | 2018-12-31 11:33 | MORECARE ---
CASE MANAGEMENT DISCHARGE SUMMARY PATIENT: TERRY SHAHID UNIT: [id number] ADM DATE: 12/28/18 AGE: 78 : 42 SEX: M ROOM/BED: D.2105 AUTHOR: ELEAZAR,DOC PHYSICIAN: REFERRING PHYSICIAN: CARIDAD MARKS MD DATE OF SERVICE: 12/31/18 Discharge Plan Patient Name: TERRY SHAHID Facility: [facility]:[place] : 1940 Planned Disposition: Home Anticipated Discharge Date: Discharge Date: Expected LOS: Initial Reviewer: [email or web address] Initial Review Date: 12/31/2018 Generated: 12/31/18 12:32 pm Comments DCP- Discharge Planning Updated by [email or web address]: Martínez Ordonez on 12/31/18 10:[address] Patient Name: TERRY SHAHID Admission Status: ER Accout number: [id number] Admission Date: 12-28-2018 : 1940 Admission Diagnosis: Attending: CARIDAD MARKS Current LOS: 3 Anticipated DC Date: Planned Disposition: Home Primary Insurance: [employer] CHOICE PPO MCR ADVANT Discharge Planning Comments: CM MET WITH PT IN ROOM TO DISCUSS DISCHARGE PLANNING AND NEEDS. PT REPORTS LIVING AT HOME INDEPENDENTLY AND ALONE. PT HAS CANE AND WALKER WITH NO MEDICAL EQUIPMENT PROVIDER PREFERENCE. PT HAS [facility] IN THE HOME. CM DISCUSSED AVAILABILITY OF HOME HEALTH, REHAB SERVICES AND MEDICAL EQUIPMENT. PT DENIES DISCHARGE NEEDS, REPORTS HIS DAUGHTER WILL PICK HIM UP FOR DISCHARGE HOME. CM ENCOURAGED PT TO CONSIDER REHAB SERVICES AND PROVIDED PT WITH SNF FACILITY PROVIDER LISTING. PT WILL DISCUSS OPTIONS WITH HIS DAUGHTER AND LET CM KNOW. PT PLANS TO DISCHARGE HOME ALONE WITH [facility]. FOR DISCHARGE, NOTIFY [facility] AT [phone]. FAX DISCHARGE INFORMATION TO [facility] AT [phone]. CM TO FOLLOW AND ASSIST NEEDED. Collar Folder Operator: Martínez Ordonez DCPIA - Discharge Planning Initial Assessment Updated by [email or web address]: Martínez Ordonez on 12/31/18 11:26 am * Is the patient Alert and Oriented? Yes * How many steps to enter\exit or inside your home? NONE * PCP DR. LFALEUR * Pharmacy [facility] * Preadmission Environment Home Alone * ADLs Independent * Equipment Cane Rolling Walker * Other Equipment NO MEDICAL EQUIPMENT PROVIDER PREFERENCE * List name and contact numbers for known caregivers / representatives who currently or will assist patient after discharge: CARLOS SHAHID, DTR, * Verbal permission to speak to the caregivers and representatives has been obtained from the patient. Yes * Community resources currently utilized Home Health * Please name any agencies selected above. [facility] * Additional services required to return to the preadmission environment? No * Can the patient safely return to the preadmission environment? Yes * Has this patient been hospitalized within the prior 30 days at any hospital? Yes Patient Name: TERRY SHAHID Page 06139 at 1133 All edits/amendments must be made on the electronic document DICTATION DATE: 12/31/181131 TERRAPIN FISHER: SHERIN 12/31/182 RPT#: [id number] ND DATE: STATUS: ADM IN [facility] [address] [place] [address] END OF REPORT
--- NOTE | 2018-12-31 12:57 | NUR ---
Nutrition Follow Up: Chart reviewed Diet: Full Liquids AAT Regular PO Intake: 60% meal avg BM: 12/31/18 Labs reviewed Meds noted including Flagyl Rec continue advancing OMAR. Will honor food preferences. RD following.
[2018-12-31 16:12] VITALS: BP 165/63
--- NOTE | 2018-12-31 19:26 | NUR ---
PATIENT LAYING IN BED. NO COMPLAINTS AT THIS TIME. NO DISTRESS NOTED.
[2018-12-31 21:01] VITALS: BP 99/43
--- NOTE | 2018-12-31 22:34 | NUR ---
PATIENT LAYING IN BED. EYES CLOSED, CHEST RISING AND FALLING. NO DISTRESS NOTED.
[2019-01-01] VITALS (7 sets, daily range): BP systolic 100–132; BP diastolic 56–67
--- NOTE | 2019-01-01 02:57 | NUR ---
I have reviewed this patient and I concur with the Shift Assessment completed by the Licensed Practical Nurse today this shift.
[2019-01-01 05:03] LABS: BASOPHILS 0.1 % (0-2); HEMOGLOBIN 10.5 g/dL (13.5-17.5); IMMATURE GRANULOCYTES 0.3 % (0-5); MCH 27.6 pg (26.0-34.0); MCHC 32.8 g/dL (31.0-37.0); MCV 84.2 fL (80.0-100.0); MEAN PLATELET VOLUME 9.6 fL (7.4-10.4); MONOCYTES 10.5 % (2-11); NEUTROPHILS 73.1 % (40-80); PLATELET COUNT 237 10x3/uL (130-400); RDW 17.6 % (11.5-14.5)
[2019-01-01 05:35] LABS: ALBUMIN 2.2 g/dL (3.4-5.0); ANION GAP 12.2 mmol/L (8-16); BILIRUBIN - TOTAL 0.33 mg/dL (0.2-1.3); CALCIUM 7.7 mg/dL (8.5-10.1); CREATININE - SERUM 1.3 mg/dL (0.6-1.3); MAGNESIUM - SERUM 1.9 mg/dL (1.8-2.4); POTASSIUM - SERUM 3.2 mmol/L (3.5-5.1); PROTEIN - SERUM 5.6 g/dL (6.4-8.2)
--- NOTE | 2019-01-01 07:11 | NUR ---
PT ASLEEP WHEN I ENTERED,DID NOT FURTHER DISTURB. CL IN REACH, SRX2.
--- NOTE | 2019-01-01 20:00 | NUR ---
ENGAGEMENT LIAISON GIVING A BED BATH. DENIES ANY OTHER NEEDS OR DISCOMFORTS.
--- NOTE | 2019-01-02 02:35 | NUR ---
RESTING WITH EYES CLOSED. RR 18 EVEN U/L ON 02 AT 2L/NC. NO S/S OF DISCOMFORT. HAS CL IN REACH.
[2019-01-02 05:46] LABS: BASOPHILS 0.2 % (0-2); EOSINOPHILS 2.7 % (0-7); HEMATOCRIT 34.4 % (42.0-54.0); HEMOGLOBIN 11.2 g/dL (13.5-17.5); IMMATURE GRANULOCYTES 0.2 % (0-5); LYMPHOCYTES 15.7 % (15-50); MCH 27.4 pg (26.0-34.0); MCHC 32.6 g/dL (31.0-37.0); MCV 84.1 fL (80.0-100.0); MEAN PLATELET VOLUME 9.8 fL (7.4-10.4); MONOCYTES 8.8 % (2-11); NEUTROPHILS 72.4 % (40-80); PLATELET COUNT 248 10x3/uL (130-400); RBC 4.09 10x6/uL (4.20-6.10); RDW 17.9 % (11.5-14.5); WBC 8.2 10x3/uL (4.8-10.8)
[2019-01-02 05:51] VITALS: BP 111/60
[2019-01-02 06:07] LABS: ALBUMIN 2.3 g/dL (3.4-5.0); ANION GAP 12.8 mmol/L (8-16); BILIRUBIN - TOTAL 0.33 mg/dL (0.2-1.3); CALCIUM 8.2 mg/dL (8.5-10.1); CARBON DIOXIDE 20.9 mmol/L (21.0-32.0); CREATININE - SERUM 1.3 mg/dL (0.6-1.3); POTASSIUM - SERUM 3.7 mmol/L (3.5-5.1)
--- NOTE | 2019-01-02 07:27 | NUR ---
PT AWAKE AND ORIENTED, NO COMPLAINTS. RECIEVED BATH LAST NIGHT AND CLEAN SHAVE. STATES HE FEELS A LOT BETTER. NO COMPLAINTS/CONCERNS VOICED AT THIS TIME. CL IN REACH, SRX2.
[2019-01-02 09:54] VITALS: BP 134/62
[2019-01-02] MEDS ORDERED: FLAGYL500 MG PO (11:50)
[2019-01-02] MEDS ORDERED: LEVAQUIN750 MG PO (11:50)
[2019-01-02 12:46] VITALS: BP 114/57
--- NOTE | 2019-01-02 12:57 | NUR ---
ATTMEPTED TO CALL PTS FAMILY SEVERAL TIME, THEY REFUSEDTO ANSWER, ONCE PICKED UP THEN HUNG UP WHILE I WAS TALKING. PT WILL TAKE CAB HOME. PT IS AWARE AND ABLE.
--- NOTE | 2019-01-02 13:16 | MORECARE ---
CASE MANAGEMENT DISCHARGE SUMMARY PATIENT: TERRY SHAHID UNIT: [id number] ADM DATE: 12/28/18 AGE: 78 : 42 SEX: M ROOM/BED: D.2102 AUTHOR: ELEAZAR,DOC PHYSICIAN: REFERRING PHYSICIAN: CARIDAD MARKS MD DATE OF SERVICE: 01/02/19 Discharge Plan Patient Name: TERRY SHAHID Facility: [facility]:[place] : 1940 Planned Disposition: Home Anticipated Discharge Date: Discharge Date: Expected LOS: Initial Reviewer: [email or web address] Initial Review Date: 12/31/2018 Generated: 01/02/19 2:15 pm Comments DCP- Discharge Planning Updated by [email or web address]: Jackelin Alcazar on 01/02/19 12:[address] CM SPOKE WITH PATIENT REGARDING D/C. DAUGHTER WOULD NOT INSPECTOR GRAIN MILL PRODUCTS PATIENT AND CM CALLED A CAB FOR HIM TO GET HOME HER IN TOWN. VOUCHER WAS FOR 7.25. [facility] FOR[facility] SIGNED. DCP- Discharge Planning Updated by [email or web address]: Martínez Ordonez on 12/31/18 10:[address] Patient Name: TERRY SHAHID Admission Status: ER Accout number: [id number] Admission Date: 12-28-2018 : 1940 Admission Diagnosis: Attending: CARIDAD MARKS Current LOS: 3 Anticipated DC Date: Planned Disposition: Home Primary Insurance: [employer] CHOICE PPO MCR ADVANT Discharge Planning Comments: CM MET WITH PT IN ROOM TO DISCUSS DISCHARGE PLANNING AND NEEDS. PT REPORTS LIVING AT HOME INDEPENDENTLY AND ALONE. PT HAS CANE AND WALKER WITH NO MEDICAL EQUIPMENT PROVIDER PREFERENCE. PT HAS [facility] IN THE HOME. CM DISCUSSED AVAILABILITY OF HOME HEALTH, REHAB SERVICES AND MEDICAL EQUIPMENT. PT DENIES DISCHARGE NEEDS, REPORTS HIS DAUGHTER WILL PICK HIM UP FOR DISCHARGE HOME. CM ENCOURAGED PT TO CONSIDER REHAB SERVICES AND PROVIDED PT WITH [facility] FACILITY PROVIDER LISTING. PT WILL DISCUSS OPTIONS WITH HIS DAUGHTER AND LET CM KNOW. PT PLANS TO DISCHARGE HOME ALONE WITH [facility]. FOR DISCHARGE, NOTIFY [facility] AT [phone]. FAX DISCHARGE INFORMATION TO [facility] AT [phone]. CM TO FOLLOW AND ASSIST NEEDED. Help Desk Agent: Martínez Ordonez DCPIA - Discharge Planning Initial Assessment Updated by [email or web address]: Martínez Ordonez on 12/31/18 11:26 am * Is the patient Alert and Oriented? Yes * How many steps to enter\exit or inside your home? NONE * PCP DR. LAFLEUR * Pharmacy [facility] * Preadmission Environment Home Alone * ADLs Independent * Equipment Cane Rolling Walker * Other Equipment NO MEDICAL EQUIPMENT PROVIDER PREFERENCE * List name and contact numbers for known caregivers / representatives who currently or will assist patient after discharge: CARLOS SHAHID, DTR, * Verbal permission to speak to the caregivers and representatives has been obtained from the patient. Yes * Community resources currently utilized Home Health * Please name any agencies selected above. [facility] * Additional services required to return to the preadmission environment? No * Can the patient safely return to the preadmission environment? Yes * Has this patient been hospitalized within the prior 30 days at any hospital? Yes Coverage Notice Reviewer: [id number] Gi Alcazar Notice Issued Date-Time: 01/02/2019 13:08 Notice Type: Patient Choice Letter Notice Delivered To: Patient Relationship to Patient: Kitchen Lead Name: Delivery Method: HAND - Hand Delivered Nela Days: Prior Verbal Notification: Recipient Understood Notice: Yes Recipient Signature: Yes Med Rec Note Co-signed by Attending: Coverage Notice Comment: [facility] CHOICE FORM SIGNED Reviewer: [id number] Gi Alcazar Notice Issued Date-Time: 01/02/2019 12:45 Notice Type: IM Discharge Notice Notice Delivered To: Patient Relationship to Patient: Kitchen Lead Name: Delivery Method: HAND - Hand Delivered Nela Days: Prior Verbal Notification: Recipient Understood Notice: Yes Recipient Signature: Yes Med Rec Note Co-signed by Attending: Coverage Notice Comment: Last DP export: 12/31/18 10:32 a Patient Name: TERRY SHAHID Page [phone] at 1316 All edits/amendments must be made on the electronic document DICTATION DATE: 01/02/19 1315 MILLINERY DEPARTMENT MANAGER: SHERIN 01/02/19 1315 RPT#: [id number] DC DATE: STATUS: ADM IN [facility] [address] [place] [address] END OF REPORT
--- NOTE | 2019-01-02 13:21 | NUR ---
PT ESCORTED OUT TO THE [facility] VIA WHEELCHAIR WITH TECH.
--- NOTE | 2019-01-03 08:47 | MORECARE ---
CASE MANAGEMENT DISCHARGE SUMMARY PATIENT: TERRY SHAHID UNIT: [id number] ADM DATE: 12/28/18 AGE: 78 : 42 SEX: M ROOM/BED: D.2102 AUTHOR: ELEAZAR,DOC PHYSICIAN: REFERRING PHYSICIAN: CARIDAD MARKS MD DATE OF SERVICE: 01/03/19 Discharge Plan Patient Name: TERRY SHAHID Facility: [facility]:[place] : 1940 Planned Disposition: Home Anticipated Discharge Date: Discharge Date: 01/02/2019 Expected LOS: Initial Reviewer: [email or web address] Initial Review Date: 12/31/2018 Generated: 01/03/19 9:47 am Comments DCP- Discharge Planning Updated by [email or web address]: Jackelin Alcazar on 01/02/19 12:[address] CM SPOKE WITH PATIENT REGARDING D/C. 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 VOUCHER WAS FOR 7.25. [facility] FORM SIGNED. DCP- Discharge Planning Updated by [id number]: Martínez Ordonez on 12/31/18 10:[address] Patient Name: TERRY SHAHID Admission Status: ER Accout number: [id number] Admission Date: 12-28-2018 : 1940 Admission Diagnosis: Attending: CARIDAD MARKS Current LOS: 3 Anticipated DC Date: Planned Disposition: Home Primary Insurance: [employer] CHOICE PPO MCR ADVANT Discharge Planning Comments: CM MET WITH PT IN ROOM TO DISCUSS DISCHARGE PLANNING AND NEEDS. PT REPORTS LIVING AT HOME INDEPENDENTLY AND ALONE. PT HAS CANE AND WALKER WITH NO MEDICAL EQUIPMENT PROVIDER PREFERENCE. PT HAS [facility] IN THE HOME. CM DISCUSSED AVAILABILITY OF HOME HEALTH, REHAB SERVICES AND MEDICAL EQUIPMENT. PT DENIES DISCHARGE NEEDS, REPORTS HIS DAUGHTER WILL PICK HIM UP FOR DISCHARGE HOME. CM ENCOURAGED PT TO CONSIDER REHAB SERVICES AND PROVIDED PT WITH [facility] FACILITY PROVIDER LISTING. PT WILL DISCUSS OPTIONS WITH HIS DAUGHTER AND LET CM KNOW. PT PLANS [facility]. FOR DISCHARGE, NOTIFY [facility] AT [phone]. FAX DISCHARGE INFORMATION TO [facility] AT [phone]. CM TO FOLLOW AND ASSIST NEEDED. Correspondent: Martínez Ordonez DCPIA - Discharge Planning Initial Assessment Updated by [id number]: Martínez Ordonez on 12/31/18 11:26 am * Is the patient Alert and Oriented? Yes * How many steps to enter\exit or inside your home? NONE * PCP DR. LAFLEUR * [facility] * Preadmission Environment Home Alone * ADLs Independent * Equipment Cane Rolling Walker * Other Equipment NO MEDICAL EQUIPMENT PROVIDER PREFERENCE * List name and contact numbers for known caregivers / representatives who currently or will assist patient after discharge: CARLOS SHAHID, DTR, * Verbal permission to speak to the caregivers and representatives has been obtained from the patient. Yes * Community resources currently utilized Home Health * Please name any agencies selected above. [facility] * Additional services required to return to the preadmission environment? No * Can the patient safely return to the preadmission environment? Yes * Has this patient been hospitalized within the prior 30 days at any hospital? Yes Coverage Notice Reviewer: [id number] Gi Alcazar Notice Issued Date-Time: 01/02/2019 13:08 Notice Type: Patient Choice Letter Notice Delivered To: Patient Relationship to Patient: Lobster Man Name: Delivery Method: HAND - Hand Delivered Nela Days: Prior Verbal Notification: Recipient Understood Notice: Yes Recipient Signature: Yes Med Rec Note Co-signed by Attending: Coverage Notice Comment: [facility] FORM SIGNED Reviewer: [id number] Gi Alcazar Notice Issued Date-Time: 01/02/2019 12:45 Notice Type: IM Discharge Notice Notice Delivered To: Patient Relationship to Patient: Lobster Man Name: Delivery Method: HAND - Hand Delivered Nela Days: Prior Verbal Notification: Recipient Understood Notice: Yes Recipient Signature: Yes Med Rec Note Co-signed by Attending: Coverage Notice Comment: Last DP export: 01/02/19 12:16 p Patient Name: TERRY SHAHID Page [phone] Electronically Signed by [facility] on 01/03/19 at 0847 All edits/amendments must be made on the electronic document DICTATION DATE: 01/03/19845 HYGIENE COORDINATOR: SHERIN 01/03/1944 RPT#: [id number] ND DATE:01/02/19 STATUS: DIS IN [facility] [address] [facility] [place] [address] END OF REPORT
== END 2019-01-02 13:23 | disposition home health service (06) | DRG 392 ==
LOC: D.ER 20:44 → D.M2 23:44
PROVIDERS: Family Medicine; ADMIT Internal Medicine Nephrology; ATTEND Internal Medicine Nephrology
DX: K57.92 Diverticulitis of intestine, part unspecified, without perforation or abscess without bleeding (principal); N17.9 Acute kidney failure, unspecified; I13.0 Hypertensive heart and chronic kidney disease with heart failure and stage 1 through stage 4 chronic kidney disease, or unspecified chronic kidney disease; I50.20 Unspecified systolic (congestive) heart failure; I42.9 Cardiomyopathy, unspecified; N18.3 Chronic kidney disease, stage 3 (moderate); R42 Dizziness and giddiness

== ENCOUNTER 2019-01-03 14:47 | Observation (INO) | payer MEDICARE, MEDICAID ==
[~2019-01-03] VITALS: Ht 162.6 cm; Wt 66.9 kg
[2019-01-03 15:39] LABS: BASOPHILS 0.3 % (0-2); EOSINOPHILS 2.5 % (0-7); HEMATOCRIT 34.2 % (42.0-54.0); HEMOGLOBIN 11.4 g/dL (13.5-17.5); IMMATURE GRANULOCYTES 0.1 % (0-5); LYMPHOCYTES 14.2 % (15-50); MCH 27.8 pg (26.0-34.0); MCHC 33.3 g/dL (31.0-37.0); MCV 83.4 fL (80.0-100.0); MEAN PLATELET VOLUME 9.6 fL (7.4-10.4); MONOCYTES 9.7 % (2-11); NEUTROPHILS 73.2 % (40-80); PLATELET COUNT 258 10x3/uL (130-400); RDW 18.1 % (11.5-14.5); WBC 7.2 10x3/uL (4.8-10.8)
[2019-01-03 15:55] LABS: APTT 34.3 SECONDS (22.8-39.4); INR 1.15 (0.85-1.17); PROTIME 14.2 SECONDS (11.6-15.0)
[2019-01-03 16:02] LABS: ALBUMIN 2.6 g/dL (3.4-5.0); ALKALINE PHOSPHATASE 68 U/L (46-116); ALT (SGPT) 14 U/L (10-68); BILIRUBIN - TOTAL 0.47 mg/dL (0.2-1.3); CALC OSMOLALITY 277 mosm/kg (275-300); CALCIUM 8.1 mg/dL (8.5-10.1); CARBON DIOXIDE 23.6 mmol/L (21.0-32.0); CHLORIDE - SERUM 109 mmol/L (98-107); CREATININE - SERUM 1.5 mg/dL (0.6-1.3); GLUCOSE 100 mg/dL (74-106); POTASSIUM - SERUM 3.6 mmol/L (3.5-5.1); PROTEIN - SERUM 6.4 g/dL (6.4-8.2); SODIUM 140 mmol/L (136-145); UREA NITROGEN 11 mg/dL (7-18); eGFR NON AFRICAN AMERICAN 48 mL/min (90-120)
[2019-01-03 16:15] LABS: CKMB 1.1 U/L (0.0-3.6); CREATINE KINASE 58 UL (21-232); MAGNESIUM - SERUM 1.8 mg/dL (1.8-2.4)
[2019-01-03 16:30] VITALS: BP 117/65
[2019-01-03 20:00] VITALS: BP 92/51
[2019-01-04] VITALS (7 sets, daily range): BP systolic 92–127; BP diastolic 44–77; Ht 162.6 cm; Wt 66.9 kg
[2019-01-04 05:41] LABS: BASOPHILS 0.1 % (0-2); EOSINOPHILS 3.4 % (0-7); HEMATOCRIT 27.7 % (42.0-54.0); IMMATURE GRANULOCYTES 0.3 % (0-5); LYMPHOCYTES 12.4 % (15-50); MCH 27.3 pg (26.0-34.0); MCHC 32.9 g/dL (31.0-37.0); MCV 83.2 fL (80.0-100.0); MEAN PLATELET VOLUME 9.7 fL (7.4-10.4); MONOCYTES 10.8 % (2-11); PLATELET COUNT 226 10x3/uL (130-400); RBC 3.33 10x6/uL (4.20-6.10); RDW 18.2 % (11.5-14.5)
[2019-01-04 06:18] LABS: CARBON DIOXIDE 22.4 mmol/L (21.0-32.0); CKMB 0.8 U/L (0.0-3.6); CREATINE KINASE 38 UL (21-232); SODIUM 149 mmol/L (136-145); TROPONIN-I 0.054 ng/mL (0.000-0.060)
[2019-01-04 06:55] LABS: HEMOGLOBIN 9.1 g/dL (13.5-17.5)
[2019-01-04 07:14] LABS: CALC OSMOLALITY 291 mosm/kg (275-300); GLUCOSE 69 mg/dL (74-106); MAGNESIUM - SERUM 1.3 mg/dL (1.8-2.4); UREA NITROGEN 7 mg/dL (7-18); eGFR NON AFRICAN AMERICAN 77 mL/min (90-120)
[2019-01-04 07:16] LABS: CHLORIDE - SERUM 117 mmol/L (98-107); POTASSIUM - SERUM 2.5 mmol/L (3.5-5.1)
[2019-01-04 07:17] LABS: CALCIUM 6.1 mg/dL (8.5-10.1)
[2019-01-04 08:52] LABS: % SATURATION 14 % (15-55); IRON 20 ug/dl (35-150); TOTAL IRON BIND CAPACITY 137 ug/dl (260-445); UNSAT IRON BIND CAPACITY 117 ug/dl (150-375)
[2019-01-04] MEDS ORDERED: HYDROCODON-ACE1 EAC7 PO (14:22)
[2019-01-05 00:30] VITALS: BP 108/56
[2019-01-05 05:00] VITALS: BP 109/55
[2019-01-05 06:06] LABS: BASOPHILS 0.1 % (0-2); EOSINOPHILS 3.5 % (0-7); HEMATOCRIT 32.2 % (42.0-54.0); HEMOGLOBIN 10.8 g/dL (13.5-17.5); IMMATURE GRANULOCYTES 0.3 % (0-5); LYMPHOCYTES 13.6 % (15-50); MCH 28.1 pg (26.0-34.0); MCHC 33.5 g/dL (31.0-37.0); MCV 83.6 fL (80.0-100.0); MEAN PLATELET VOLUME 9.5 fL (7.4-10.4); MONOCYTES 12.6 % (2-11); NEUTROPHILS 69.9 % (40-80); PLATELET COUNT 250 10x3/uL (130-400); RBC 3.85 10x6/uL (4.20-6.10); RDW 18.7 % (11.5-14.5); WBC 7.1 10x3/uL (4.8-10.8)
[2019-01-05 06:20] LABS: ANION GAP 10.9 mmol/L (8-16); CARBON DIOXIDE 24.6 mmol/L (21.0-32.0); POTASSIUM - SERUM 3.5 mmol/L (3.5-5.1)
[2019-01-05 06:21] LABS: CALCIUM 7.9 mg/dL (8.5-10.1); CREATININE - SERUM 1.3 mg/dL (0.6-1.3)
[2019-01-05 08:39] VITALS: BP 118/58
[2019-01-05 11:13] LABS: FOLATE (FOLIC ACID) - SERUM 4.5 ng/mL (>3.0)
[2019-01-05 11:51] VITALS: BP 90/42
[2019-01-05 15:50] VITALS: BP 113/63
[2019-01-05] MEDS ORDERED: PROTONIX40 MG PO (16:43)
--- NOTE | 2019-01-06 08:29 | MORECARE ---
CASE MANAGEMENT DISCHARGE SUMMARY PATIENT: TERRY SHAHID UNIT: [id number] ADM DATE: 01/03/19 AGE: 78 : 42 SEX: M ROOM/BED: D.2122 AUTHOR: XIN BUSH PHYSICIAN: REFERRING PHYSICIAN: CARIDAD MARKS MD DATE OF SERVICE: 01/06/19 Discharge Plan Patient Name: TERRY SHAHID Facility: [facility]:[place] : 1940 Planned Disposition: Home Anticipated Discharge Date: 01/05/19 Discharge Date: 01/05/2019 Expected LOS: 2 Initial Reviewer: [email or web address] Initial Review Date: 01/06/2019 Generated: 01/06/19 9:29 am Coverage Notice Reviewer: [email or web address] Gi Chen Notice Issued Date-Time: 01/04/2019 17:01 Notice Type: Medicare Outpatient Observation Notice Notice Delivered To: Patient Relationship to Patient: Material Control Analyst Name: Delivery Method: HAND - Hand Delivered Nela Days: Prior Verbal Notification: Recipient Understood Notice: Yes Recipient Signature: Yes Med Rec Note Co-signed by Attending: Coverage Notice Comment: Patient Name: TERRY SHAHID Page [id number] at 0829 All edits/amendments must be made on the electronic document DICTATION DATE: 01/06/19828 CORDUROY CUTTER OPERATOR: SHERIN 01/06/19828 RPT#: [id number] DC DATE:01/05/19 STATUS: DIS IN [facility] [id number] [place] [address] END OF REPORT
== END 2019-01-05 18:55 | disposition home or self-care (01) ==
LOC: D.ER 14:47 → D.EDHOLD 17:34 → D.M2 17:34 → OBSVTIME 17:46 → D.M2 18:14
PROVIDERS: Family Medicine; ADMIT Internal Medicine Nephrology; ATTEND Internal Medicine Nephrology
DX: R55 Syncope and collapse (principal); I11.0 Hypertensive heart disease with heart failure; I50.23 Acute on chronic systolic (congestive) heart failure; E87.6 Hypokalemia; D50.9 Iron deficiency anemia, unspecified; E87.0 Hyperosmolality and hypernatremia; I42.9 Cardiomyopathy, unspecified

== ENCOUNTER → 2019-02-18 08:03 | Outpatient (CLI) | payer MEDICARE, MEDICAID ==
[2019-01-04 17:29] VITALS: BMI 24.6
[~2019-02-18 08:03] MED LIST changes: +AMIODARONE HCL200 MG PO; -COREG6.25 MG PO; +MACROBID100 MG PO; +OXYBUTYNIN CHLOR5 M1 PO; +PROTONIX40 MG PO
== END | disposition home or self-care (01) ==
LOC: D.CT 08:03
PROVIDERS: ATTEND Family Medicine
DX: K57.92 Diverticulitis of intestine, part unspecified, without perforation or abscess without bleeding (principal)

== ENCOUNTER → 2019-04-18 10:39 | Outpatient (CLI) | payer MEDICARE, MEDICAID ==
[2019-01-04 17:29] VITALS: BMI 24.6
== END | disposition home or self-care (01) ==
LOC: D.CT 10:39
PROVIDERS: ATTEND Thoracic Surgery (Cardiothoracic Vascular Surgery)
DX: I71.2 Thoracic aortic aneurysm, without rupture (principal)

== ENCOUNTER 2019-04-21 05:00 | Day surgery (SDC) | payer MEDICARE, MEDICAID ==
[2019-04-18 13:18] LABS: HEMATOCRIT 36.6 % (42.0-54.0); MCH 27.8 pg (26.0-34.0); MCHC 32.8 g/dL (31.0-37.0); MCV 84.7 fL (80.0-100.0); MEAN PLATELET VOLUME 9.7 fL (7.4-10.4); RBC 4.32 10x6/uL (4.20-6.10); WBC 8.4 10x3/uL (4.8-10.8)
[2019-04-18 13:26] LABS: ANION GAP 12.4 mmol/L (8-16); CALCIUM 8.4 mg/dL (8.5-10.1); CARBON DIOXIDE 25.4 mmol/L (21.0-32.0); CREATININE - SERUM 1.8 mg/dL (0.6-1.3); POTASSIUM - SERUM 3.8 mmol/L (3.5-5.1)
[~2019-04-21] VITALS: Ht 162.6 cm; Wt 63.5 kg
[~2019-04-21 05:00] MED LIST changes: -MACROBID100 MG PO; -OXYBUTYNIN CHLOR5 M1 PO
[2019-04-21 06:35] VITALS: BP 121/53; Ht 162.6 cm; Wt 63.5 kg
--- NOTE | 2019-04-21 11:15 | OP ---
PATIENT NAME: TERRY SHAHID MEDICAL RECORD: [id number] :[birth year] LOCATION:D[facility] ADMISSION DATE: SURGEON: AGUSTIN OSPINA MD DATE OF OPERATION: 04/21/2019 SURGEON: Agustin Ospina MD ANESTHESIA: TIVA by Sierra Truong CRNA DIAGNOSIS: Obstructive benign prostatic hyperplasia. IPSS is 17, quality of life score is 5. A 20 gram prostate on digital rectal examination. PROCEDURE: UroLift times 4 in box configuration around the bladder neck. FINDINGS: Primarily bladder neck obstruction. Single ureteral orifices bilaterally. No bladder tumors. Trabeculated bladder. BLOOD LOSS: None. CLINICAL HISTORY: This is a 78-year-old male, who has obstructive voiding symptoms. He has nocturia times 2-5 with urgency and urge incontinence. There is hesitancy in getting started and a slow urinary flow. He has dribbling after voiding. He is not allergic to any medications. He comes today to have the UroLift procedure done. He was given Ancef ssn/ssbn weapons equipment operator to the OR. DESCRIPTION OF PROCEDURE: The patient was given IV sedation. He was then placed into dorsal lithotomy position and prepped and draped. Cystoscopy findings are as outlined above. 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 We then implanted two anterolateral units, one on each side. They were placed in the anterolateral sulcus of the lateral lobe, 1.5 cm distal to the bladder neck. This opened up the anterior portion of the urethra. It was quite evident that the lateral lobes are not obstructive. Therefore, at the mid prostate level, 1.5 cm distal to the bladder neck, two more units were placed and this gave a nice open bladder neck. The bladder was left partly full to allow voiding trial today. I will see the patient in followup in 1 months' time. TRANSINT:[id number] Voice Confirmation ID: [id number] DOCUMENT ID: [id number] AGUSTIN OSPINA MD at 1115 CC: [id number] DICTATION DATE: 04/21/19 0849 STATISTICAL PROGRAMMER: 04/21/19 1106 [facility] [address] [place] [address]
--- NOTE | 2019-04-21 17:12 | NUR ---
1013 IV REMOVED WITH CATHALON INTACT. ALL DC CRITERIA MET. TAKEN DOWN VIA WC WITH DAUGHTER. ADVISED TO CALL OR COME BACK IF ANY PROBLEMS.
[2019-04-22] MEDS ORDERED: KEFLEX500 MG PO (05:57)
[2019-04-22] MEDS ORDERED: MACROBID100 MG PO (05:57)
[2019-04-22] MEDS ORDERED: OXYBUTYNIN CHLOR5 M1 PO (05:57)
== END 2019-04-21 10:13 | disposition home or self-care (01) ==
LOC: D.OPS 05:00
PROVIDERS: Anesthesiology; ATTEND Urology
DX: N40.1 Benign prostatic hyperplasia with lower urinary tract symptoms (principal); N13.8 Other obstructive and reflux uropathy

== ENCOUNTER 2019-04-22 05:24 | Emergency (ER) | payer MEDICARE, MEDICAID ==
[~2019-04-22] VITALS: Ht 162.6 cm; Wt 61.4 kg
[2019-04-22 05:34] VITALS: Ht 162.6 cm; Wt 61.4 kg
[2019-04-22] MEDS ORDERED: KEFLEX500 MG PO (05:57)
[2019-04-22] MEDS ORDERED: OXYBUTYNIN CHLOR5 M1 PO (05:57)
[2019-04-22] MEDS ORDERED: MACROBID100 MG PO (05:57)
[2019-04-22 06:17] VITALS: BP 132/77
[2019-04-22 06:47] LABS: APPEARANCE SL CLDY (CLEAR); BACTERIA FEW /hpf (NONE SEEN); BILIRUBIN NEGATIVE (NEGATIVE); COLOR YELLOW (YELLOW); EPITHELIAL CELLS OCC /hpf (0-5); GLUCOSE NEGATIVE (NEGATIVE); HYALINE CAST RARE /lpf (NONE SEEN); KETONE NEGATIVE (NEGATIVE); MUCUS <1+ /lpf (NONE SEEN); NITRITE NEGATIVE (NEGATIVE); PROTEIN TRACE mg/dL (NEGATIVE); RED CELLS - URINE >50 /hpf (0-5); SPECIFIC GRAVITY 1.005 (1.005-1.020); UROBILINOGEN NORMAL (NORMAL); WHITE CELLS - URINE 0-5 /hpf (0-5)
== END 2019-04-22 06:19 | disposition home or self-care (01) ==
LOC: D.ER 05:24
PROVIDERS: Family Medicine
DX: N99.89 Other postprocedural complications and disorders of genitourinary system (principal); R31.9 Hematuria, unspecified

== ENCOUNTER 2019-05-05 13:17 | Emergency (ER) | payer MEDICARE, MEDICAID ==
[~2019-05-05] VITALS: Ht 162.6 cm; Wt 61.4 kg
[~2019-05-05 13:17] MED LIST changes: +MACROBID100 MG PO; +OXYBUTYNIN CHLOR5 M1 PO
[2019-05-05 13:21] VITALS: BP 106/58; Ht 162.6 cm; Wt 61.4 kg
== END 2019-05-05 15:25 | disposition home or self-care (01) ==
LOC: D.ER 13:17
DX: R51 Headache (principal)

== ENCOUNTER 2019-07-11 14:42 | Inpatient (IN) | payer MEDICARE, MEDICAID ==
[~2019-07-11] VITALS: Ht 162.6 cm; Wt 65.0 kg
--- NOTE | ~2019-07-11 | HEMODYNAMI ---
PATIENT:TERRY SHAHID MEDICAL RECORD: [id number] : 44 LOCATION:[facility] D.2304 ADMISSION DATE: 07/11/19 Generatedon:07/15/201913:38 Patient name: TERRY SHAHID Patient #: [id number] SSN: : 1940 Date of study: 07/15/2019 Page: Of Hemodynamic Procedure Report Patient Data Patient Demographics Procedure consent was obtained First Name: TERRY Gender: Male Last Name: KLEBER : 1940 [facility] Initial: BOBBY Age: 78 year(s) Patient #: [id number] Race: Ethnicity: or Additional ID: [id number] Contact details Address: [address] [place] [address] State: [place] City: [facility] Zip code: [address] Past Medical History Allergies: No known allergies Admission Admission Data Admission Date: 07/11/2019 Admission Time: 19:28 Room #: D.2304 Height (in.): 64 BSA: 1.67 (m2) Height (cm.): 162.56 BMI: 23.69 (kg/m2) Weight (lbs.): 138 Weight (kg.): 62.6 Procedure Procedure Types Cath Procedure Peripheral Cath Diagnostic Procedure Radiology Equipment Servicer Peripheral Procedures Abd/Extremity Visceral/Mesenteric Mesenteric Arteriogram (Abd Artery) Procedure Description Procedure Date Procedure Date: 07/15/2019 Procedure Start Time: 12:50 Procedure Staff Name Function Bj Alvarez MD Performing Physician Amy Zhang RT It Trainer Corrina Paul RN Nurse Dionne Iglesias RN Nurse ISAEL WRIGHT RT Scrub Procedure Data Cath Procedure Fluoroscopy Diagnostic fluoroscopy Total fluoroscopy Time: 4.1 time: 4.1 min min Diagnostic fluoroscopy Total fluoroscopy dose: 363 dose: 363 mGy mGy Contrast Material Contrast Material Type Amount (ml) Isovue 300 35 Diagnostic catheters Device Type Used For End Catheter Placement Angiodynamics SOS OMNI 2 NON B 5FR 65CM catheter ([id number]) Procedure Medications Medication Administration Route Dosage Lidocaine 1% added to field 20 Heparin Flush Bag added to field 3 bags (1000units/500ml NS) Hemodynamics Rest BSA: 1.67 (m2) O2 Consumption: Estimated: 191.01 (ml/min) O2 Consumption indexed : Estimated:114.38 (ml/min/m) Heart Rate: 69 (bpm) Snapshots Pre Cath Intra NCS Post Cath Vital Signs Time Heart Resp SPO2 etCO2 NIBP (mmHg) Rhythm Pain Sedation Rate (ipm) (%) (mmHg) Status Level (bpm) 12:26:04 21 100 21.2 144/71(118) NSR 0 (11) 10(A) , No pain 12:30:20 70 31 100 21.2 139/71(115) NSR 0 (11) 10(A) , No pain 12:34:32 69 20 99 24.3 138/71(118) NSR 0 (11) 10(A) , No pain 12:38:44 69 21 100 23.5 136/73(120) NSR 0 (11) 10(A) , No pain 12:42:56 70 21 100 23.5 143/72(111) NSR 0 (11) 9(A) , No pain 12:47:10 69 18 100 26.5 127/67(116) NSR 0 (11) 9(A) , No pain 12:51:18 69 22 98 22 139/69(110) NSR 0 (11) 9(A) , No pain 12:55:30 69 22 100 22.8 145/69(119) NSR 0 (11) 9(A) , No pain 12:59:44 68 21 100 22.7 137/72(115) NSR 0 (11) 9(A) , No pain 13:03:56 69 35 100 20.5 130/70(109) NSR 0 (11) 9(A) , No pain 13:08:05 67 20 100 20.5 135/72(117) NSR 0 (11) 9(A) , No pain 13:12:19 68 24 100 22.7 138/66(112) NSR 0 (11) 9(A) , No pain 13:16:33 68 18 100 25.8 129/64(98) NSR 0 (11) 9(A) , No pain 13:20:50 67 22 100 18.9 135/48(114) NSR 0 (11) 9(A) , No pain 13:25:00 68 25 100 20.5 133/71(109) NSR 0 (11) 9(A) , No pain 13:29:11 67 25 100 21.2 132/66(115) NSR 0 (11) 9(A) , No pain 13:33:23 66 25 98 22 132/69(112) NSR 0 (11) 9(A) , No pain 13:35:18 68 30 100 23.5 143/72(125) NSR 0 (11) 9(A) , No pain Medications Time Medication Route Dose Verified Delivered Reason Notes Effe ctiveness by by 12:45:33 Lidocaine 1% added 20ml Bj Lorenzo for local to vial Antonio Alvarez anesthetic field MD TUTTLE 12:45:53 Heparin Flush added 3 Bj Lorenzo used for Bag to bags Antonio Alvarez procedure (1000units/500ml field MD TUTTLE NS) Procedure Log Time Note 11:55:42 Patient Height : 64 inches 11:55:48 Patient Weight : 138 lbs 11:55:52 Use device set IR Diagnostic 11:55:53 Tegaderm 4 x 4 (1626W) opened to sterile field. 11:55:54 Sterile Angiographic Pack opened to sterile field. 11:55:55 Bag Decanter (2002S) opened to sterile field. 11:55:56 ACIST Manifold (28906) opened to sterile field. 11:55:57 ACIST Hand Control (93398) opened to sterile field. 11:55:57 ACIST Syringe (31937) opened to sterile field. 11:57:16 SHEATH 5FR Estelline (OJO461) opened to sterile field. 11:57:18 Micropuncture VSI 4FR kit opened to sterile field. 11:57:19 BENTSON 145cm wire (Z24822) opened to sterile field. 12:16:17 Time tracking: Regular hours (M-F 7:00 - 5:00) 12:16:26 Plan of Care:Hemodynamics will remain stable., Cardiac rhythm will remain stable., Comfort level will be maintained., Respiratory function will remain adequate., Patient/ family verbilizes understanding of procedure., Procedure tolerated without complication., Recovers from procedure without complications.. 12:16:40 Patient received from Outpatients to IR Alert and oriented. Tansferred to table in Supine position. 12:16:47 Signed procedure consent form obtained from verbally. 12:16:56 H&P Date Dictated: 07/15/2019 Within 30 days and on chart.. 12:16:58 Pre-procedure instructions explained to patient. 12:16:58 Pre-op teaching completed and patient verbalized understanding. 12:17:03 Family in waiting room. 12:17:07 Patient NPO since Midnight. 12:17:16 Patient allergic to No known allergies 12:17:19 Is the patient allergic to Iodine/contrast media? No. 12:17:33 Is patient on blood thinner?No 12:17:42 Patient diabetic? No. 12:17:49 ----Pre-sedation anethsthesia assessment.---- 12:17:52 Previous problem with sedation/anesthesia? No ? 12:17:57 Snore? No 12:18:01 Sleep apnea? No 12:18:05 Deviated septum? No 12:18:14 Opens mouth fully? Yes 12:18:20 Sticks out tongue? Yes 12:18:23 Airway obstruction? No ? 12:18:29 Dentures? No ? 12:18:50 IV patent on arrival in Right upper arm with D5/.45%NaCl at [facility]. 12:24:49 Vital chart was started 12:31:16 Pre procedure: right dorsailis pedis pulse Doppler 12:31:20 Pre procedure: right posterior tibial pulse Doppler 12:36:56 ECG and BP/O2 sat monitors applied to patient. 12:37:16 TUBING Contrast Injection High Pressure (AAY862F) opened to sterile field. 12:37:38 Baseline sample Acquired. 12:37:47 Full Disclosure recording started 12:37:47 - 12:39:14 A AngiodynamSmalldeals OMNI 2 NON B 5FR 65CM catheter ([id number]) was advanced over the wire and used for . 12:45:33 Lidocaine 1% 20ml vial added to field was administered by Bj estevez MD; for local anesthetic; Verbal order read back and verified. 12:45:53 Heparin Flush Bag (1000units/500ml NS) 3 bags added to field was administered by Bj Alvarez MD; used for procedure; Verbal order read back and verified. 12:47:56 - 12:48:04 Physician arrived 12:48:05 --------ALL STOP TIME OUT------ 12:48:06 Final Timeout: patient, procedure, and site verified with staff and physician. All members of the team are in agreement. 12:49:03 Fire Safety Assessment: A--An alcohol-based skin anteseptic being used preoperatively., C--Open oxygen or nitrous oxide is being used. 12:49:12 3b) 30-44 Moderately reduced kidney function. 12:49:46 Maximum allowable contrast dose (3.7 X eGFR X 0.75)97.125 ml. 12:50:30 Procedure started. 12:50:37 Local anesthetic to right femoral artery with Lidocaine 1% by Bj Alvarez MD.INITIAL ACCESS ONLY 12:50:51 Arterial access obtained using ultrasound guidance. 13:00:02 Direxion Straight Microcatheter ([id number]) opened to sterile field. 13:00:11 TRANSEND STEERABLE wire ([id number]) opened to sterile field. 13:00:17 COPILOT Valve Control (7780532) opened to sterile field. 13:10:12 GLIDE WIRE GT DOUBLE ANGLE .018 ([id number]) opened to sterile field. 13:19:49 SUTURE ETHILON 2-0 BLK MONO FS opened to sterile field. 13:26:16 Procedure ended.(Physican Out) 13:27:02 Fluoroscopy time 04.10 minutes. 13:27:09 Fluoroscopy dose: 363 mGy 13:27:09 Flurop Dose total: 363 13:27:18 Contrast amount:Isovue 300 35ml. 13:27:27 Procedure and supply charges have been captured, reviewed, submitted an d are correct. 13:38:00 Report given to ICU. 13:38:29 Vital chart was stopped Device Usage Item Name Manufacture Quantity Catalog Hospital Part Current Mini mal Lot# / Number Charge Number Stock Stock Serial# Code Tegaderm 4 x 3M 1 1626W [id number] 723556 [id number] 5 4 (1626W) Sterile Cardinal 1 [id number] 069807 206514 5 Angiographic Health Pack Bag Decanter Microtek 1 2001S 076248 16063 313245 5 (2001S) Medical Inc. ACIST Acist Medical 1 41875 877162 715483 117572 5 Manifold Systems Inc (50725) ACIST Hand Acist Medical 1 83395 557658 247121 816841 5 Control Systems Inc (79815) ACIST Syringe Acist Medical 1 05461 041112 290568 176071 20 (85966) Systems Inc SHEATH 5FR Terumo 1 JHU400 629042 616097 948511 5 Estelline (KCS213) Micropuncture VSI VASCULAR 1 7266V 706262 647706 5 VSI 4FR kit SOLUTIONS BENTSON 145cm Cook Medical 1 Z94071 365453 250385 5 wire ([id number]) TUBING [facility] 1 [id number] 385594 987966 611148 5 [id number] Contrast Injection High Pressure (DGO203X) Angiodynamics Angiodynamics 1 46727649 202597 88632 202724 5 SOS OMNI 2 NON B 5FR 65CM catheter (92988743) Direxion Jet 1 [id number] 880766 405345 489580 5 Straight Scientific Microcatheter ([id number]) TRANSEND Jet 1 [id number] 042529 152795 5 STEERABLE Scientific wire ([id number]) COPILOT Valve Nalyor 1 2545925 153536 013243 803340 5 Control Vascular (2321088) GLIDE WIRE GT Terumo 1 [id number] 211316 348663 5 DOUBLE ANGLE .018 (RG*[id number]) SUTURE Ethicon 1 664H 296326 826871 5 ETHILON 2-0 BLK MONO FS Signature Audit Ewing Stage Time Signature Unsigned Intra-Procedure 07/15/2019 Amy Zhang 1:38:24 PM RT(R) [facility] [address] [place] [address]
--- NOTE | ~2019-07-11 | HEMODYNAMI ---
PATIENT:TERRY SHAHID MEDICAL RECORD: [id number] : 44 LOCATION:[facility] D.2304 ADMISSION DATE: 07/11/19 Generatedon:07/17/201911:39 Patient name: TERRY SHAHID Patient #: [id number] SSN: : 1940 Date of study: 07/17/2019 Page: Of Hemodynamic Procedure Report Patient Data Patient Demographics Procedure consent was obtained First Name: TERRY Gender: Male Last Name: KLEBER : 1940 [facility] Initial: BOBBY Age: 78 year(s) Patient #: [id number] Race: Ethnicity: or Additional ID: [id number] Contact details Address: [address] [place] [address] State: [place] City: [facility] Zip code: [address] Past Medical History Allergies: No known allergies Admission Admission Data Admission Date: 07/11/2019 Admission Time: 19:28 Room #: D2304 Height (in.): 64 BSA: 1.67 (m2) Height (cm.): 162.56 BMI: 23.69 (kg/m2) Weight (lbs.): 138 Weight (kg.): 62.6 Procedure Procedure Types Cath Procedure Peripheral Cath Diagnostic Procedure Weigher Alloy Peripheral Procedures Peripheral vascular Intervention Thrombolysis/Thrombectomy Thrombolysis Catheter Removal Procedure Description Procedure Date Procedure Date: 07/17/2019 Procedure Start Time: 11:27 Procedure Staff Name Function Joao Coleman MD Performing Physician Amy Zhang RT Nurse Examiner Corrina Paul RN Nurse ISAEL WRIGHT RT Scrub Procedure Data Cath Procedure Fluoroscopy Diagnostic fluoroscopy Total fluoroscopy Time: 0.2 time: 0.2 min min Diagnostic fluoroscopy Total fluoroscopy dose: 82 dose: 82 mGy mGy Contrast Material Contrast Material Type Amount (ml) Isovue 300 10 Entry Location Entry Primary Successful Side Size Upsize Upsize Entry Closure Succes sful Closure Location (Fr) 1 (Fr) 2 (Fr) Remarks Device Remarks Femoral Exoseal artery Procedure Medications Medication Administration Route Dosage Heparin Flush Bag added to field 1 bags (1000units/500ml NS) Lidocaine 1% added to field 20 Hemodynamics Rest BSA: 1.67 (m2) O2 Consumption: Estimated: 211.77 (ml/min) O2 Consumption indexed : Estimated:126.81 (ml/min/m) Heart Rate: 102 (bpm) Snapshots Pre Cath Intra NCS Post Cath Vital Signs Time Heart Resp SPO2 etCO2 NIBP (mmHg) Rhythm Pain Sedation Rate (ipm) (%) (mmHg) Status Level (bpm) 11:14:30 101 36 85 0 Measuring NSR 0 (11) 10(A) , No pain 11:14:59 91 34 86 0 125/78(107) NSR 0 (11) 10(A) , No pain 11:19:02 100 32 84 0 126/77(105) NSR 0 (11) 10(A) , No pain 11:23:04 101 37 86 0 126/81(104) NSR 0 (11) 10(A) , No pain 11:27:08 99 35 85 0 132/76(96) NSR 0 (11) 10(A) , No pain 11:31:13 99 41 89 0 119/82(96) NSR 0 (11) 10(A) , No pain 11:35:15 105 37 92 0 127/78(109) NSR 0 (11) 10(A) , No pain 11:39:21 104 37 87 0 131/74(112) NSR 0 (11) 10(A) , No pain Medications Time Medication Route Dose Verified Delivered Reason Notes Effe ctiveness by by 11:15:45 Heparin Flush added 1 Joao Shepherd used for Bag to bags Virginia Coleman MD procedure (1000units/500ml field TUTTLE NS) 11:15:56 Lidocaine 1% added 20ml Joao Shepherd for local to vial Virginia Coleman MD anesthetic field Procedure Log Time Note 10:31:45 Patient Height : 64 inches 10:31:45 Patient Weight : 138 lbs 11:11:33 Time tracking: Call back (After hours or weekends) 11:11:41 Patient received from ICU to IR Alert and oriented. Tansferred to table in Supine position. 11:11:54 Signed procedure consent form obtained from patient. 11:12:04 H&P Date Dictated: 07/17/2019 Within 30 days and on chart.. 11:12:08 Family unavailable. 11:12:10 Patient NPO since Midnight. 11:12:27 Patient allergic to No known allergies 11:12:35 - 11:12:38 ECG and BP/O2 sat monitors applied to patient. 11:12:40 Vital chart was started 11:12:42 Baseline sample Acquired. 11:12:46 Full Disclosure recording started 11:12:57 - 11:13:06 Use device set IR Diagnostic 11:13:08 Tegaderm 4 x 4 ([id number]) opened to sterile field. 11:13:09 Sterile Angiographic Pack opened to sterile field. 11:13:10 Bag Decanter () opened to sterile field. 11:13:19 - 11:13:32 IV patent on arrival in right forearm with D5/.45%NaCl at KVO. 11:13:40 Right groin area was prepped with betadine and draped in sterile fashio n 11:13:44 - 11:15:45 Heparin Flush Bag (1000units/500ml NS) 1 bags added to field was administered by Joao Coleman MD; used for procedure; Verbal order read back and verified. 11:15:56 Lidocaine 1% 20ml vial added to field was administered by Joao Coleman MD; for local anesthetic; Verbal order read back and verified. 11:26:49 Physician arrived 11:26:50 --------ALL STOP TIME OUT------ 11:26:50 Final Timeout: patient, procedure, and site verified with staff and physician. All members of the team are in agreement. 11:27:28 Procedure started. 11:27:37 Local anesthetic to right femoral artery with Lidocaine 1% by Joao Coleman MD.INITIAL ACCESS ONLY 11:29:04 DOC .035 wire ([id number]) opened to sterile field. 11:30:03 SHEATH 5FR Devils Elbow ([id number]) opened to sterile field. 11:33:57 EXOSEAL 5Fr (EX500) opened to sterile field. 11:35:24 A sheath was inserted into the Femoral artery 11:35:24 Sheath removed intact; hemostasis achieved with Exoseal to the Femoral artery. 11:35:35 Procedure ended.(Physican Out) 11:35:45 Fluoroscopy time 00.20 minutes. 11:35:51 Fluoroscopy dose: 82 mGy 11:35:51 Flurop Dose total: 82 11:35:55 Contrast amount:Isovue 300 10ml. 11:35:58 Procedure and supply charges have been captured, reviewed, submitted an d are correct. 11:38:27 Report given to ICU. 11:39:27 Patient transfered to ICU with Bed. 11:39:49 Vital chart was stopped Device Usage Item Name Manufacture Quantity Catalog Hospital Part Current Minimal Lot# / Number Charge Number Stock Stock Serial# Code Tegaderm 4 x 3M 1 1626W [id number] 5 4 (1626W) Sterile Cardinal 1 [id number] 607035 058608 5 Angiographic Health Pack Bag Decanter Microtek 1 136432 04509 948729 5 () [employer] Inc. DOC .035 Cook Medical 1 [id number] [id number] [id number] 5 wire ([id number]) SHEATH 5FR Terumo 1 [id number] 323248 975093 638483 5 Devils [place]bow (YVQ773) EXOSEAL 5Fr Cardinal 1 EX500 011059 247931 [id number] 10 [id number] (EX500) Health Signature Audit Reading Stage Time Signature Unsigned Intra-Procedure 07/17/2019 Amy Zhang 11:39:44 AM RT(R) [facility] [address] [place] [id number]
[2019-07-11 16:11] LABS: BASOPHILS 0.1 % (0-2); EOSINOPHILS 0.6 % (0-7); HEMATOCRIT 41.8 % (42.0-54.0); HEMOGLOBIN 13.9 g/dL (13.5-17.5); IMMATURE GRANULOCYTES 0.4 % (0-5); LYMPHOCYTES 9.1 % (15-50); MCH 27.3 pg (26.0-34.0); MCHC 33.3 g/dL (31.0-37.0); MCV 82.1 fL (80.0-100.0); MEAN PLATELET VOLUME 9.4 fL (7.4-10.4); MONOCYTES 9.3 % (2-11); NEUTROPHILS 80.5 % (40-80); RBC 5.09 10x6/uL (4.20-6.10); RDW 16.6 % (11.5-14.5); WBC 13.5 10x3/uL (4.8-10.8)
[2019-07-11 16:12] LABS: PLATELET COUNT 546 10x3/uL (130-400)
[2019-07-11 16:23] LABS: CALCIUM 8.4 mg/dL (8.5-10.1); CARBON DIOXIDE 25.7 mmol/L (21.0-32.0); CREATININE - SERUM 1.8 mg/dL (0.6-1.3); POTASSIUM - SERUM 3.7 mmol/L (3.5-5.1)
[2019-07-11 16:31] LABS: ALBUMIN 2.7 g/dL (3.4-5.0); BILIRUBIN - TOTAL 1.05 mg/dL (0.2-1.3); PROTEIN - SERUM 7.1 g/dL (6.4-8.2); TROPONIN-I 0.036 ng/mL (0.000-0.060)
--- NOTE | 2019-07-11 19:01 | NUR ---
PT RESTING ON BED. PT UPDATED ON PLAN OF CARE. NO S/S OF ACUTE DISTRESS NOTED.
--- NOTE | 2019-07-11 19:11 | NUR ---
HAND OFF REPORT GIVEN TO INA GROVER
[2019-07-11 20:00] VITALS: BP 109/50
--- NOTE | 2019-07-11 21:03 | NUR ---
FLAGYL INFUSION COMPLETE AT THIS TIME.
--- NOTE | 2019-07-11 21:20 | NUR ---
ADMITTED FROM ER VIA [facility] TO BED LOW AND LOCKED CALL LIGHT PROVIDED LCTA SKIN WARM AND DRY PT IS ON PHONE AND REFUSES TO ANSWER QUESTIONS AT THIS TIME
[2019-07-11] MEDS ORDERED: HYDROCODON-ACE1 EAC7 PO (21:31)
[2019-07-12] VITALS: BP 102/61
[2019-07-12 04:00] VITALS: BP 122/67
[2019-07-12 04:03] VITALS: BP 104/50; BMI 23.9
[2019-07-12 05:55] LABS: BASOPHILS 0.1 % (0-2); EOSINOPHILS 1.5 % (0-7); HEMATOCRIT 36.7 % (42.0-54.0); HEMOGLOBIN 11.9 g/dL (13.5-17.5); IMMATURE GRANULOCYTES 0.5 % (0-5); LYMPHOCYTES 9.5 % (15-50); MCH 26.8 pg (26.0-34.0); MCHC 32.4 g/dL (31.0-37.0); MCV 82.7 fL (80.0-100.0); MEAN PLATELET VOLUME 9.4 fL (7.4-10.4); MONOCYTES 11.5 % (2-11); NEUTROPHILS 76.9 % (40-80); PLATELET COUNT 486 10x3/uL (130-400); RBC 4.44 10x6/uL (4.20-6.10); RDW 16.5 % (11.5-14.5)
[2019-07-12 06:13] LABS: WBC 10.1 10x3/uL (4.8-10.8)
[2019-07-12 06:25] LABS: APTT 41.2 SECONDS (22.8-39.4); INR 1.39 (0.85-1.17); PROTIME 16.5 SECONDS (11.6-15.0)
[2019-07-12 06:38] LABS: ANION GAP 10.6 mmol/L (8-16); CALCIUM 7.2 mg/dL (8.5-10.1); CARBON DIOXIDE 26.2 mmol/L (21.0-32.0); CREATININE - SERUM 1.6 mg/dL (0.6-1.3); MAGNESIUM - SERUM 1.9 mg/dL (1.8-2.4); PHOSPHOROUS 3.6 mg/dL (2.5-4.9)
--- NOTE | 2019-07-12 07:00 | NUR ---
RECEIVED REPORT. ASSUMED CARE OF PATIENT. RESTING WITH EYES OPEN. CALL LIGHT WITHIN REACH. IV FLUIDS INFUSING ORDERED. PATIENT DENIES PAIN AND HAS NO REQUESTS AT THIS TIME. BEDSIDE SHIFT REPORT COMPLETED.
[2019-07-12 07:16] LABS: POTASSIUM - SERUM 2.8 mmol/L (3.5-5.1)
--- NOTE | 2019-07-12 08:01 | NUR ---
ELECTROLYTE REPLACEMENT PROTOCOL ORDERED ON PATIENT AFTER SPEAKING WITH CARMEN PLATA.
--- NOTE | 2019-07-12 08:09 | NUR ---
EP INITIATED AT THIS TIME. NO DISTRESS.
[2019-07-12 11:27] LABS: APPEARANCE CLEAR (CLEAR); BILIRUBIN NEGATIVE (NEGATIVE); COLOR YELLOW (YELLOW); GLUCOSE NEGATIVE (NEGATIVE); KETONE NEGATIVE (NEGATIVE); NITRITE NEGATIVE (NEGATIVE); PROTEIN NEGATIVE (NEGATIVE); SPECIFIC GRAVITY 1.015 (1.005-1.020); UROBILINOGEN NORMAL (NORMAL)
[2019-07-12 12:05] VITALS: BP 101/55
--- NOTE | 2019-07-12 13:12 | NUR ---
PATIENT GAVE PERMISSION FOR THIS BATCH ANALYST TO SPEAK TO MARITZA HIS OTHER DAUGHTER THAT LIVES IN [place].
[2019-07-12 14:50] VITALS: BMI 23.8
[2019-07-12 16:00] VITALS: BP 105/50
--- NOTE | 2019-07-12 17:42 | NUR ---
20 GAUGE IV REMOVED FROM RIGHT FOREARM IV INFILTRATED. WARM COMPRESS PLACED TO AREA. D5LR WAS THE INFUSING FLUID. PATIENT DENIES PAIN TO AREA. NO S/S INFECTIONS. AREA PROPT ON PILLOW. NO DISTRESS.
--- NOTE | 2019-07-12 19:06 | NUR ---
PT COMPLAINING OF PAIN ALSO WANTS IV RESITED BED LOW AND LOCKED AND SRX2 CALL LIGHT IN REACH SKIN WARM AND DRY BOWEL SOUNDS X4
[2019-07-12 20:00] VITALS: BP 132/54
[2019-07-13] VITALS: BP 106/54
[2019-07-13 04:00] VITALS: BP 102/61
[2019-07-13 05:57] LABS: ANION GAP 9.3 mmol/L (8-16); BASOPHILS 0.2 % (0-2); CALCIUM 8.1 mg/dL (8.5-10.1); CARBON DIOXIDE 28.1 mmol/L (21.0-32.0); CREATININE - SERUM 1.5 mg/dL (0.6-1.3); EOSINOPHILS 3.1 % (0-7); HEMATOCRIT 38.8 % (42.0-54.0); HEMOGLOBIN 12.5 g/dL (13.5-17.5); IMMATURE GRANULOCYTES 0.4 % (0-5); LYMPHOCYTES 9.7 % (15-50); MAGNESIUM - SERUM 1.9 mg/dL (1.8-2.4); MCH 26.5 pg (26.0-34.0); MCHC 32.2 g/dL (31.0-37.0); MCV 82.2 fL (80.0-100.0); MEAN PLATELET VOLUME 9.5 fL (7.4-10.4); MONOCYTES 10.8 % (2-11); NEUTROPHILS 75.8 % (40-80); PLATELET COUNT 523 10x3/uL (130-400); RBC 4.72 10x6/uL (4.20-6.10); RDW 16.6 % (11.5-14.5); WBC 9.6 10x3/uL (4.8-10.8)
[2019-07-13 06:04] LABS: PHOSPHOROUS 1.9 mg/dL (2.5-4.9); POTASSIUM - SERUM 3.4 mmol/L (3.5-5.1)
--- NOTE | 2019-07-13 10:27 | NUR ---
PATIENT IS NAUSEATED AND DRY HEAVING. GIVEN MORPHINE AND ZOFRAN PRN ORDERED. HE IS SHAKING AND HAS A COLD SWEAT. NAUSEA AND PAIN HAS SUBSIDED A LITTLE AFTER THE PRN MEDS GIVEN.
[2019-07-13 13:01] VITALS: BP 121/39
--- NOTE | 2019-07-13 16:53 | MORECARE ---
CASE MANAGEMENT DISCHARGE SUMMARY PATIENT: TERRY SHAHID UNIT: [id number] ADM DATE: 07/11/19 AGE: 78 : 42 SEX: M ROOM/BED: D.2133 AUTHOR: XIN BUSH PHYSICIAN: REFERRING PHYSICIAN: SAVANA GONZALES DO DATE OF SERVICE: 07/13/19 Discharge Plan Patient Name: TERRY SHAHID Facility: [facility]:[place] : 1940 Planned Disposition: Home with Home Health Anticipated Discharge Date: Discharge Date: Expected LOS: Initial Reviewer: [email or web address] Initial Review Date: 07/13/2019 Generated: 07/13/19 5:53 pm DCPIA - Discharge Planning Initial Assessment Updated by KATHYA: Martínez Ordonez on 07/13/19 4:52 pm * Is the patient Alert and Oriented? Yes * How many steps to enter\exit or inside your home? NONE * PCP DR. LAFLEUR * Pharmacy [facility] * Preadmission Environment Home Alone * ADLs Independent * Equipment Cane Rolling Walker * Other Equipment NO MEDICAL EQUIPMENT PROVIDER PREFERENCE * List name and contact numbers for known caregivers / representatives who currently or will assist patient after discharge: CARLOS SHAHID, DTR, * Verbal permission to speak to the caregivers and representatives has been obtained from the patient. N/A * Community resources currently utilized None * Please name any agencies selected above. NONE * Additional services required to return to the preadmission environment? No * Can the patient safely return to the preadmission environment? Yes * Has this patient been hospitalized within the prior 30 days at any hospital? No Coverage Notice Reviewer: [email or web address] Gi Ordonez Notice Issued Date-Time: 07/13/2019 16:40 Notice Type: IM Discharge Notice Notice Delivered To: Patient Relationship to Patient: Director Child Name: Delivery Method: HAND - Hand Delivered Nela Days: Prior Verbal Notification: Recipient Understood Notice: Yes Recipient Signature: Yes Med Rec Note Co-signed by Attending: Coverage Notice Comment: Reviewer: [email or web address] Ordonez Notice Issued Date-Time: 07/13/2019 16:40 Notice Type: Patient Choice Letter Notice Delivered To: Patient Relationship to Patient: Director Child Name: Delivery Method: HAND - Hand Delivered Nela Days: Prior Verbal Notification: Recipient Understood Notice: Yes Recipient Signature: Yes Med Rec Note Co-signed by Attending: Coverage Notice Comment: [facility] Patient Name: TERRY SHAHID Page [phone] at 1653 All edits/amendments must be made on the electronic document DICTATION DATE: 07/13/191652 DEVULCANIZER LOADER: SHERIN 07/13/191652 RPT#: [id number] DC DATE: STATUS: ADM IN [facility] [address] [place] [address] END OF REPORT
--- NOTE | 2019-07-13 17:04 | MORECARE ---
CASE MANAGEMENT DISCHARGE SUMMARY PATIENT: TERRY SHAHID UNIT: [id number] ADM DATE: 07/11/19 AGE: 78 : 42 SEX: M ROOM/BED: D.4374 AUTHOR: XIN BUSH PHYSICIAN: REFERRING PHYSICIAN: SAVANA GONZALES DO DATE OF SERVICE: 07/13/19 Discharge Plan Patient Name: TERRY SHAHID Facility: [facility]:[place] : 1940 Planned Disposition: Home with Home Health Anticipated Discharge Date: Discharge Date: Expected LOS: Initial Reviewer: [email or web address] Initial Review Date: 07/13/2019 Generated: 07/13/19 6:04 pm Comments DCP- Discharge Planning Updated by [email or web address]: Martínez Ordonez on 07/13/19 3:[address] Patient Name: TERRY SHAHID Admission Status: ER Accout number: [id number] Admission Date: 07-11-2019 : 1940 Admission Diagnosis: Attending: SAVANA GONZALES Current LOS: 2 Anticipated DC Date: Planned Disposition: Home with Home Health Primary Insurance: [employer] CHOICE PPO MCR ADVANT PLANNED EXTERNAL PROVIDER: [facility] Discharge Planning Comments: CM RECEIVED ORDER TO CONSULT WITH PT REGARDING DISCHARGE NEEDS. CM MET WITH PT IN ROOM TO DISCUSS DISCHARGE PLANNING AND NEEDS. PT REPORTS LIVING AT HOME INDEPENDENTLY AND ALONE. PT HAS CANE AND WALKER WITH NO MEDICAL EQUIPMENT PROVIDER PREFERENCE. PT HAD [facility] BUT IT HAD ALREADY STOPPED; PT HAS NO OUTSIDE SERVICES ASSISTING IN THE HOME. CM DISCUSSED AVAILABILITY OF HOME HEALTH, REHAB SERVICES AND MEDICAL EQUIPMENT. PT DENIES NEED OF INPATIENT OR SKILLED REHAB. PT WANTS HOME HEALTH WITH [facility]; PT STATES HIS DAUGHTER WILL BE COOKING AND CLEANING FOR HIM AFTER DISCHARGE, BUT HE WILL STILL BE LIVING ALONE. PT REPORTS HIS DAUGHTER WILL PICK HIM UP FOR DISCHARGE HOME. IMPORTANT MESSAGE FROM MEDICARE PROVIDED AND EXPLAINED. CHOICE FOR [facility] SIGNED. CM TO ARRANGE [facility] FOR DISCHARGE HOME WITH PHYSICIAN AGREEMENT AND ORDERS. PCP IS DR. LAFLEUR. CM TO CONTINUE TO FOLLOW AND ASSIST NEEDED. Pipe Smoker Machine Operator: Martínez Ordonez DCPIA - Discharge Planning Initial Assessment Updated by [email or web address]: Martínez Ordonez on 07/13/19 4:52 pm * Is the patient Alert and Oriented? Yes * How many steps to enter\exit or inside your home? NONE * PCP DR. LAFLEUR * Pharmacy [facility] * Preadmission Environment Home Alone * ADLs Independent * Equipment Cane Rolling Walker * Other Equipment NO MEDICAL EQUIPMENT PROVIDER PREFERENCE * List name and contact numbers for known caregivers / representatives who currently or will assist patient after discharge: CARLOS SHAHID, R, * Verbal permission to speak to the caregivers and representatives has been obtained from the patient. N/A * Community resources currently utilized None * Please name any agencies selected above. NONE * Additional services required to return to the preadmission environment? No * Can the patient safely return to the preadmission environment? Yes * Has this patient been hospitalized within the prior 30 days at any hospital? No Coverage Notice Reviewer: [email or web address] Ordonez Notice Issued Date-Time: 07/13/2019 16:40 Notice Type: IM Discharge Notice Notice Delivered To: Patient Relationship to Patient: Leave Specialist Name: Delivery Method: HAND - Hand Delivered Nela Days: Prior Verbal Notification: Recipient Understood Notice: Yes Recipient Signature: Yes Med Rec Note Co-signed by Attending: Coverage Notice Comment: Reviewer: [id number] Ordonez Notice Issued Date-Time: 07/13/2019 16:40 Notice Type: Patient Choice Letter Notice Delivered To: Patient Relationship to Patient: Leave Specialist Name: Delivery Method: HAND - Hand Delivered Nela Days: Prior Verbal Notification: Recipient Understood Notice: Yes Recipient Signature: Yes Med Rec Note Co-signed by Attending: Coverage Notice Comment: [facility] Last DP export: 07/13/19 3:53 Patient Name: TERRY SHAHID Page [phone] at 1704 All edits/amendments must be made on the electronic document DICTATION DATE: 07/13/191703 PRODUCTION CLERK: SHERIN 07/13/191703 RPT#: [id number] DC DATE: STATUS: ADM IN [facility] [address] [place] [address] END OF REPORT
[2019-07-13 20:00] VITALS: BP 82/56
[2019-07-14] VITALS (31 sets, daily range): BP systolic 64–127; BP diastolic 44–84; Ht 162.6 cm; Wt 65.0 kg
--- NOTE | 2019-07-14 00:29 | NUR ---
IV TO LEFT AC LEAKING, IV CATH REMOVED, TIP INTACT. PIV RESITED TO RIGHT FOREARM, 20 GUAGE. PT TOLERATED WELL.
[2019-07-14 05:38] LABS: ANION GAP 11.3 mmol/L (8-16); CALCIUM 7.8 mg/dL (8.5-10.1); CARBON DIOXIDE 24.4 mmol/L (21.0-32.0); MAGNESIUM - SERUM 1.6 mg/dL (1.8-2.4); PHOSPHOROUS 1.9 mg/dL (2.5-4.9)
[2019-07-14 05:46] LABS: CREATININE - SERUM 1.9 mg/dL (0.6-1.3); POTASSIUM - SERUM 3.7 mmol/L (3.5-5.1)
[2019-07-14 05:57] LABS: HEMATOCRIT 32.8 % (42.0-54.0); HEMOGLOBIN 10.7 g/dL (13.5-17.5); MCH 26.9 pg (26.0-34.0); MCHC 32.6 g/dL (31.0-37.0); MCV 82.4 fL (80.0-100.0); MEAN PLATELET VOLUME 9.7 fL (7.4-10.4); PLATELET COUNT 413 10x3/uL (130-400); RBC 3.98 10x6/uL (4.20-6.10); RDW 16.7 % (11.5-14.5); WBC 21.8 10x3/uL (4.8-10.8)
--- NOTE | 2019-07-14 07:15 | NUR ---
RECIEVED PT IN BED AAOX4 RESP SL SOB SKIN W/D COLOR PALE PT DENIES ANY NEEEDS OR DISCOMFORT NAD NOTED
[2019-07-14 11:18] LABS: ANISOCYTOSIS OCC; CRENATED CELLS 1+; EOSINOPHILS 2 % (0-7); LYMPHOCYTES 7 % (15-50); MONOCYTES 14 % (2-11); NEUTROPHILS 75 % (40-80); PLATELET ESTIMATE INCREASED; PLATELET MORPHOLOGY PLT CLUMPS PRESENT
--- NOTE | 2019-07-14 13:22 | NUR ---
Nutrition Follow-up: Tolerating clear liquids. Diet advanced to full liquids. No N/V. Reports hard BM this AM. No new wt Labs noted: Ca 7.8, PO4 1.9, Mg 1.6 Meds noted: Micro K, KDur, Neutraphos, D5-LR @ 60 -Rec ADAT to dental soft cardiac as medically feasible. -Offer nutrition supplements. -RD following.
[2019-07-14 15:29] LABS: HEMOGLOBIN 11.7 g/dL (13.5-17.5)
--- NOTE | 2019-07-14 15:47 | NUR ---
SPOKE WITH CECILIO MORALES APN FOR DR COLLAZO REPORTED H&H RESULTS AND THAT PATIENT HAD PASSED APPROX 240 TO 300 CC DARK RED BLOOD NO CLOTTS NOTED WILL CONTINUE TO MONITOR
--- NOTE | 2019-07-14 16:30 | NUR ---
PT TRANSFERRED TI 2304 VIA BED WITH ACTIVE GI BLEED TO ROOM 2304 HANDED PT OFF TO TRAINING EXECUTIVE CARLO ATTEMPTED TO CALL DAUGHTER AT [phone] MULTIPLE TIMES UNABLE TO REACH THIS IS THE ONLY NUMBER WE HAVE ON THE CHART
--- NOTE | 2019-07-14 17:10 | NUR ---
PT RECEIEVED TO UNIT. CHARLES FROM RADIOLOGY AT BEDSIDE. STATED SCAN IN 20 MINUTES.
[2019-07-14 17:19] LABS: HEMATOCRIT 31.9 % (42.0-54.0); HEMOGLOBIN 10.4 g/dL (13.5-17.5)
--- NOTE | 2019-07-14 17:41 | NUR ---
DR GAMA PAGED GIVEN UDPATE REGUARDING PT STATUS. STATED OKAY
[2019-07-14 21:57] LABS: APTT 45.5 SECONDS (22.8-39.4); INR 1.46 (0.85-1.17); PROTIME 17.1 SECONDS (11.6-15.0)
[2019-07-15] VITALS (73 sets, daily range): BP systolic 84–154; BP diastolic 42–106
[2019-07-15 04:22] LABS: ANION GAP 9.9 mmol/L (8-16); C-REACTIVE PROTEIN 8.1 mg/dL (0.0-0.9); CALCIUM 7.2 mg/dL (8.5-10.1); CARBON DIOXIDE 25.6 mmol/L (21.0-32.0); MAGNESIUM - SERUM 1.6 mg/dL (1.8-2.4); PHOSPHOROUS 2.1 mg/dL (2.5-4.9); POTASSIUM - SERUM 3.5 mmol/L (3.5-5.1)
[2019-07-15 05:15] LABS: BASOPHILS 0.1 % (0-2); EOSINOPHILS 0.5 % (0-7); IMMATURE GRANULOCYTES 0.5 % (0-5); LYMPHOCYTES 6.7 % (15-50); MCH 26.7 pg (26.0-34.0); MCHC 32.2 g/dL (31.0-37.0); MCV 82.9 fL (80.0-100.0); MEAN PLATELET VOLUME 9.2 fL (7.4-10.4); MONOCYTES 7.3 % (2-11); NEUTROPHILS 84.9 % (40-80); PLATELET COUNT 407 10x3/uL (130-400); RDW 17.1 % (11.5-14.5); WBC 16.8 10x3/uL (4.8-10.8)
[2019-07-15 05:16] LABS: HEMATOCRIT 21.4 % (42.0-54.0); HEMOGLOBIN 6.9 g/dL (13.5-17.5); RBC 2.58 10x6/uL (4.20-6.10)
--- NOTE | 2019-07-15 07:15 | NUR ---
REPORT RECEIVED. PT ALERT AND ORIENTED. GI BLEED. CLEANED PT UP WITH WHEY DEPARTMENT OPERATOR NURSE. BLOOD ORDERED. IV TO LEFT AC AND RIGHT FOREARM. NO SKIN ISSUES AT THIS TIME. VSS. ON LEVOPHED. WILL CONTINUE TO MONITOR.
--- NOTE | 2019-07-15 07:50 | NUR ---
CALLED BLOOD BANK. SAID BLOOD WOULD BE READY IN ABOUT 10 MINUTES.
--- NOTE | 2019-07-15 08:34 | NUR ---
1ST UNIT OF PRBC INITIATED. CONSENT SIGNED. VSS. WILL MONITOR.
--- NOTE | 2019-07-15 10:04 | NUR ---
SPOKE WITH DR GONZALES ABOUT PT CONDITION. HAVE PAGED DR SANCHEZ TO SPEAK WITH DR GONZALES TO DETERMINE WHETHER PT SHOULD GO TO IR VS SURGERY.
--- NOTE | 2019-07-15 10:12 | NUR ---
DR HERNANDEZ AND DR GONZALES SPOKE REGARDING PT'S STATUS. DR GONZALES IS NOW GOING TO SPEAK WITH IR ABOUT INTERVENTION.
--- NOTE | 2019-07-15 11:18 | NUR ---
Nutrition follow-up: NPO Active GI bleed Levophed started Wt: 138# Will need nutrition support started soon. RDN following.
--- NOTE | 2019-07-15 12:20 | NUR ---
1ST UNIT OF BLOOD FINISHED TRANSFUSING. 2ND UNIT LONG TERM DONE TRANSFUSING. PT TAKEN BACK TO IR FOR PROCEDURE. FAMILY IN WAITING AREA. PT ON LEVOPHED AT 10MCG. FLAGYL INFUSING. VSS.
--- NOTE | 2019-07-15 13:07 | NUR ---
PT CURRENTLY IN IR. FAMILY NOTIFIED TO WAIT IN RADIOLOGY WAITING AREA SO DR GUIDRY CAN SPEAK WITH THEM AFTER THE PROCEDURE.
--- NOTE | 2019-07-15 13:42 | NUR ---
UPDATED DAUGHTER'S CONTACT INFORMATION. PHONE NUMBER [phone].
--- NOTE | 2019-07-15 13:54 | NUR ---
PT BACK FROM IR. TOLD IN REPORT THAT THERE IS A CATH TO THE EKATERINA WITH VASOPRESSIN INFUSING AT 30ML/HR (0.2 UNITS/HR). LEVOPHED WEANED DOWN TO 7MCG IN IR. 3RD UNIT OF BLOOD TRANSFUSING. BP 141/86 WITH MAP OF 121. HR 71. O2 SAT AT 92%.
--- NOTE | 2019-07-15 15:58 | NUR ---
PT RESTING QUIETLY. TITRATING LEVOPHED PER IR ORDERS. VASOPRESSIN STILL INFUSING INTO RIGHT GROIN. 0.2 UNITS/HR. VSS. WILL CONTINUE TO MONITOR. 3RD UNIT OF BLOOD DONE TRANSFUSING.
--- NOTE | 2019-07-15 17:15 | NUR ---
DR GONZALES ROUNDED ON PT. UPDATED PT. NO BOWEL EPISODES SINCE RETURN FROM IR PROCEDURE. PT HAS VOIDED SINCE RETURN. VSS. WILL CONTINUE TO MONITOR.
[2019-07-15 18:03] LABS: HEMATOCRIT 31.7 % (42.0-54.0); HEMOGLOBIN 10.2 g/dL (13.5-17.5)
--- NOTE | 2019-07-15 19:00 | NUR ---
PT REASSESSMENT COMPLETED AT THIS TIME, PT WAS NOTED TO VERY COLD TO THE TOUCH, PT'S TEMP WAS NOTED TO BE 94.1 AX, PT WAS IMMMEDIATLY PLACED UNDER AIRFLOW WARMER AND WARM BLANKETS PROVIDED, PT WAS ALSO NOTED TO BE VERY PALE AND CAP REFILL TIME WAS GREATER THAN 5, PEDAL PULSES WHERE VERY FAINT PER DOPPLER AND EQUAL BILAT.
--- NOTE | 2019-07-15 21:00 | NUR ---
PT GIVEN PO MEDS WITHOUT PROBLEMS, PT'S TEMP INCREASING TO 95.1 AX, PT STATES THAT HE IS FEELING SOME WARMER, CAPREFILL WITHIN NORMAL RANGE
--- NOTE | 2019-07-15 22:00 | NUR ---
PT STATES THAT HE IS STARTING TO FEEL HOT, AX TEMP 97.8, AIRFLOW WARMER TURNED OFF, WILL MONITOR FOR CHANGES
--- NOTE | 2019-07-15 23:00 | NUR ---
PT REASSESSMENT COMPLETED AT THIS TIME, PT IS WARM AND CAP REILL <3 SECONDS
[2019-07-15 23:02] LABS: HEMATOCRIT 27.6 % (42.0-54.0); HEMOGLOBIN 8.9 g/dL (13.5-17.5)
[2019-07-16] VITALS (24 sets, daily range): BP systolic 115–133; BP diastolic 60–90
--- NOTE | 2019-07-16 01:00 | NUR ---
PT RESTING WITH EYES CLOSED, RESP EVEN NON LABORED, VSS, NO DISTRESS NOTED
--- NOTE | 2019-07-16 03:00 | NUR ---
PT REASSESSMENT COMPLETED AT THIS TIME, NO CHANGES NOTED, VSS, WILL CONT TO MONITOR
[2019-07-16 04:18] LABS: BASOPHILS 0.1 % (0-2); EOSINOPHILS 0.5 % (0-7); HEMATOCRIT 28.5 % (42.0-54.0); HEMOGLOBIN 9.4 g/dL (13.5-17.5); IMMATURE GRANULOCYTES 0.3 % (0-5); LYMPHOCYTES 7.5 % (15-50); MCH 27.1 pg (26.0-34.0); MCV 82.1 fL (80.0-100.0); MONOCYTES 7.6 % (2-11); PLATELET COUNT 329 10x3/uL (130-400); WBC 13.2 10x3/uL (4.8-10.8)
[2019-07-16 04:19] LABS: RBC 3.47 10x6/uL (4.20-6.10)
[2019-07-16 04:32] LABS: ANION GAP 10.5 mmol/L (8-16); CALCIUM 7.7 mg/dL (8.5-10.1); CARBON DIOXIDE 23.4 mmol/L (21.0-32.0); MAGNESIUM - SERUM 1.8 mg/dL (1.8-2.4); PHOSPHOROUS 2.2 mg/dL (2.5-4.9); POTASSIUM - SERUM 3.9 mmol/L (3.5-5.1)
[2019-07-16 04:33] LABS: CREATININE - SERUM 1.1 mg/dL (0.6-1.3)
--- NOTE | 2019-07-16 05:37 | NUR ---
PT GIVEN HCG BATH AND LINEN CHANGED
--- NOTE | 2019-07-16 08:48 | NUR ---
0700 PT RECIEVED ALERT AND ORIENTED O2 2L NC R PICC WITH NS 125ML/HR, LFA PIV SL, R GROIN SHEATH SITE CDI, SOFT, NO SIGNS OF BLEEDING, VASOPRESSIN INFUSING PER ORDERS, USES URINAL, PULSES DOPPLERED DENIES ALL NEEDS CALL LIGHT WITHIN REACH 0845 SPOKE WITH RENAL PHOTOGRAPHER APPRENTICE AND OKAYED AM MEDS, GIVEN WITH SIP OF WATER, PTS DAUGHTER MARITZA CALLED FOR UPDATE
--- NOTE | 2019-07-16 11:54 | NUR ---
PT NOTED TO HAVE EPISODE OF INCREASED RESPIRATIONS TO UPPER 20S, OXYGEN SATURATION DESAT TO 75% WITH A GOOD WAVEFORM ON 1L NC. OXYGEN INCREAED UP TO 4L VIA NC. OXYGEN SATURATION NOW AT 92%. RESPIRATIONS NOW IN LOWER 20S. PT DENIES TROUBLE BREATHING. DR COLLAZO PAGEParrish TO NOTIFY. WILL CONTINUE TO OBSERVE.
--- NOTE | 2019-07-16 12:42 | NUR ---
ATTEMPTED TO CALL DR BLANK WHO IS SOLUTION MAKE UP OPERATOR FOR IR TO CLARIFY WHEN/IF TO WEAN VASOPRESSIN
--- NOTE | 2019-07-16 13:01 | NUR ---
RECIEVED CALL FROM DR BLANK STATEDHE WOULD COME SEE PT SHORTLY
--- NOTE | 2019-07-16 13:55 | NUR ---
[address] BLANK
[2019-07-16 14:51] LABS: HEMATOCRIT 30.2 % (42.0-54.0); HEMOGLOBIN 9.7 g/dL (13.5-17.5)
[2019-07-16 14:59] LABS: CALCIUM 7.6 mg/dL (8.5-10.1); CARBON DIOXIDE 22.8 mmol/L (21.0-32.0); CREATININE - SERUM 1.1 mg/dL (0.6-1.3); POTASSIUM - SERUM 3.8 mmol/L (3.5-5.1)
--- NOTE | 2019-07-16 15:35 | NUR ---
WHILE TURNING/REPOSITIONING PT NOTED LINENS WET, PT STATED HE SPILLED URINAL, TOLD PT TO NOTIFY WHEN HE SPILLS SO WE CAN REPLACE LINENS AND PT STATES UNDERSTANDING, TOTAL LINEN CHANGE AND PERICARE, SMALL BROWN SMEAR ON SHEETS NOTED
--- NOTE | 2019-07-16 16:37 | NUR ---
DR HAMMOND IN ROOM ORDERS TO CHANGE FLUIDS TO D5WNS
--- NOTE | 2019-07-16 17:56 | NUR ---
PT REPOSITIONED Q2H THROUGHOUT SHIFT, MOUTH SWABS AT BEDSIDE FOR DRY MOUTH, PT DENIES ALL NEEDS, CALL LIGHT AND PHONE WITHIN REACH
--- NOTE | 2019-07-16 19:00 | NUR ---
REPORT RECEIVED AT BEDSIDE, SHIFT ASSESSMENT COMPLETE PER FLOW SHEET, PT AAOx4, C/O LLQ ABDOMINAL DISCOMFORT WHEN PALPATED, NC @4L/MIN, VSS, NSR ON CM, IR SHEETH SECURED IN RT GROIN, DRSG C/D/I, NO ACUTE S/S OF DISTRESS NOTED, REPOSITIONED FOR COMFORT, RLE STRAIGHT PER ORDERS, BLE PULSES WEAK BUT ABLE TO DOPPLER, WILL CONTINUE TO MONITOR
--- NOTE | 2019-07-16 21:00 | NUR ---
MEDS GIVEN PER MAR/ORDERS, NO ACUTE S/S OF DISTRESS NOTED, VSS
--- NOTE | 2019-07-16 23:00 | NUR ---
REASSESSMENT COMPLETE SEE FLOW SHEET FOR FURTHER, NO ACUTE CHANGES NOTED FROM PRIOR ASSESSMENT, VSS, NSR ON CM, REPOSITIONED FOR COMFORT, WILL CONTINUE TO MONITOR
[2019-07-16 23:17] LABS: HEMATOCRIT 30.3 % (42.0-54.0); HEMOGLOBIN 9.8 g/dL (13.5-17.5)
[2019-07-17] VITALS (24 sets, daily range): BP systolic 98–138; BP diastolic 55–700
--- NOTE | 2019-07-17 03:00 | NUR ---
REASSESSMENT COMPLETE SEE FLOW SHEET FOR FURTHER, VSS, NSR ON CM, NO ACUTE CHANGES NOTED FROM PRIOR ASSESSMENT, REPOSITIONED FOR COMFORT, WILL CONTINUE TO MONITOR
--- NOTE | 2019-07-17 05:30 | NUR ---
CHG BATH AND LINEN CHANGE COMPLETE, YELLOW GOWN PLACED ON PT, RT GROIN SHEETH DRSG SATURATED WITH URINE FROM PT MISSING URINAL, COMPLETE DRSG CHANGE USING STERILE PROCEDURE, PT TOLLERATED WELL, NO ACUTE S/S OF DISTRESS NOTED, VSS, NSR ON CM, WILL CONTINUE TO MONITOR
[2019-07-17 06:04] LABS: BASOPHILS 0.1 % (0-2); EOSINOPHILS 0.1 % (0-7); HEMATOCRIT 31.6 % (42.0-54.0); HEMOGLOBIN 10.2 g/dL (13.5-17.5); IMMATURE GRANULOCYTES 0.4 % (0-5); LYMPHOCYTES 4.2 % (15-50); MCH 26.9 pg (26.0-34.0); MCHC 32.3 g/dL (31.0-37.0); MCV 83.4 fL (80.0-100.0); MEAN PLATELET VOLUME 9.7 fL (7.4-10.4); NEUTROPHILS 87.2 % (40-80); PLATELET COUNT 331 10x3/uL (130-400); RBC 3.79 10x6/uL (4.20-6.10); RDW 17.5 % (11.5-14.5); WBC 15.8 10x3/uL (4.8-10.8)
--- NOTE | 2019-07-17 07:20 | NUR ---
REPORT RECIEVED, SHIFT ASSESSMENT COMPLETE, PT IS CONFUSED LYING IN BED, ON 4L NC WITH 94% O2 SAT. VSS, CALL LIGHT IN REACH
[2019-07-17 07:57] LABS: CALC OSMOLALITY 289 mosm/kg (275-300); CALCIUM 7.8 mg/dL (8.5-10.1); CARBON DIOXIDE 23.3 mmol/L (21.0-32.0); CHLORIDE - SERUM 113 mmol/L (98-107); CREATININE - SERUM 0.9 mg/dL (0.6-1.3); GLUCOSE 166 mg/dL (74-106); POTASSIUM - SERUM 3.8 mmol/L (3.5-5.1); SODIUM 144 mmol/L (136-145); UREA NITROGEN 9 mg/dL (7-18); eGFR NON AFRICAN AMERICAN 87 mL/min (90-120)
--- NOTE | 2019-07-17 09:00 | NUR ---
NO VISITORS AT THIS TIME, WILL CON'T TO MONITOR
[2019-07-17 11:10] LABS: INR 1.21 (0.85-1.17); PROTIME 14.8 SECONDS (11.6-15.0)
--- NOTE | 2019-07-17 11:30 | NUR ---
NO NEEDS NOTED AT THIS TIME, WILL CON'T TO MONITOR
--- NOTE | 2019-07-17 13:00 | NUR ---
FAMILY AT BEDSIDE, UPDATE GIVEN, WILL CON'T TO MONITOR
--- NOTE | 2019-07-17 15:20 | NUR ---
PT UPTO CHAIR AT THIS TIME, TOLERATED WELL
--- NOTE | 2019-07-17 17:30 | NUR ---
PT BACK TO BED AT THIS TIME, TOLERATED WELL
--- NOTE | 2019-07-17 19:00 | NUR ---
REPORT RECEIVED AT BEDSIDE, SHIFT ASSESSMENT COMPLETE PER FLOW SHEET, PT AAOx4 DENIES PAIN OR NEEDS AT THIS TIME, RT FEMORAL PRIOR SHEETH SITE C/D/I SOFT TO PALPATION, NO ACUTE S/S OF DISTRESS, VSS, NSR ON CM, CALL LIGHT IN REACH, WILL CONTINUE TO MONITOR
--- NOTE | 2019-07-17 23:00 | NUR ---
REASSESSMENT COMPLETE, NO ACUTE CHANGES FROM PRIOR ASSESSMENT, PT AAOx4 DENIES PAIN OR NEEDS, I/S COMPLETED, VSS, REPOSITIONED IN BED FOR COMFORT, CUP ICE WATER GIVEN PER REQUEST, WILL CONTINUE TO MONITOR
[2019-07-18] VITALS (12 sets, daily range): BP systolic 92–129; BP diastolic 51–81
--- NOTE | 2019-07-18 01:00 | NUR ---
PT RESTING IN BED SLEEPING, NO ACUTE S/S OF DISTRESS, VSS, WILL CONTINUE TO MONITOR
--- NOTE | 2019-07-18 03:00 | NUR ---
REASSESSMENT COMPLETE, NO ACUTE CHANGES SINCE PRIOR ASSESSMENT, VSS, REPOSITIONED FOR COMFORT, I/S COMPLETED, CALL LIGHT IN REACH
[2019-07-18 05:10] LABS: BASOPHILS 0 % (0-2); EOSINOPHILS 0.1 % (0-7); HEMATOCRIT 31.5 % (42.0-54.0); HEMOGLOBIN 10.2 g/dL (13.5-17.5); IMMATURE GRANULOCYTES 0.5 % (0-5); LYMPHOCYTES 4.1 % (15-50); MCH 26.6 pg (26.0-34.0); MCHC 32.4 g/dL (31.0-37.0); MCV 82.2 fL (80.0-100.0); MEAN PLATELET VOLUME 9.6 fL (7.4-10.4); MONOCYTES 7.6 % (2-11); NEUTROPHILS 87.7 % (40-80); PLATELET COUNT 278 10x3/uL (130-400); RBC 3.83 10x6/uL (4.20-6.10); RDW 17.3 % (11.5-14.5)
--- NOTE | 2019-07-18 05:30 | NUR ---
CHG BATH WITH COMPLETE LINEN CHANGE, YELLOW GOWN PLACED ON PT, HOB ELEVATED, REPOSITIONED FOR COMFORT, BILATERAL FA PIV'S D/C'D, CATH TIPS INTACT x2, 2X2 GAUZE WITH TEGADERM DRSG PLACED ON SITES
[2019-07-18 05:46] LABS: ALBUMIN 1.8 g/dL (3.4-5.0); ANION GAP 9.4 mmol/L (8-16); BILIRUBIN - TOTAL 1.22 mg/dL (0.2-1.3); CALCIUM 7.7 mg/dL (8.5-10.1); CREATININE - SERUM 1.1 mg/dL (0.6-1.3); POTASSIUM - SERUM 3.4 mmol/L (3.5-5.1); PROTEIN - SERUM 5.1 g/dL (6.4-8.2)
--- NOTE | 2019-07-18 07:10 | NUR ---
PT UPTO CHAIR AT THIS TIME, ASSESSMENT COMPLETE, PT TOLERATED WELL
--- NOTE | 2019-07-18 09:00 | NUR ---
PT BACK TO BED AT THIS TIME, TOLERATED WELL
--- NOTE | 2019-07-18 09:38 | NUR ---
Nutrition follow-up: Diet: Clear liquids; pt up to chair GI bleeding has stopped labs reviewed Wt: 143# Recommend advancing diet to at least full liquids today. RDN following.
--- NOTE | 2019-07-18 11:14 | NUR ---
PT RESTING COMFORTABLY AT THIS TIME, VSS, CALL LIGHT IN REACH
--- NOTE | 2019-07-18 13:00 | NUR ---
PT RESTING COMFORTABLY AT THIS TIME, WILL CON'T TO MONITOR
--- NOTE | 2019-07-18 15:00 | NUR ---
LG BM AT THIS TIME, COMPLETE LINEN CHANGE
--- NOTE | 2019-07-18 16:07 | NUR ---
UPDATE GIVEN TO DR. OSPINA, TO OR TOMORROW FOR HERNANDEZ PLACEMENT
--- NOTE | 2019-07-18 17:22 | NUR ---
PT RECIEVED TO ROOM 1640, ASSISTED UP TO CHAIR, DENIES ALL NEEDS 1720 DINNER TRAY SERVED
--- NOTE | 2019-07-18 19:16 | NUR ---
REPORT RECEIVED, SHIFT ASSESSMENT COMPLETED PER FLOW SHEET, SEE FOR DETAILS. DENIES PAIN OR NEEDS. CALL LIGHT WITHIN REACH. 1939 CALL LIGHT ANSWERED, WATER PROVIDED, NO DYSPHAGIA, DENIES OTHER NEEDS, CALL LIGHT WITHIN REACH. 2056 O2 SENSOR ALARMING, READING 88%, INSTRUCTED PATIENT TO COUGH, NO SPUTUM, INSTRUCTED PATIENT TO TAKE DEEP BREATHS, O2 IMPROVED TO 93%, PATIENT REMAINS ON 10 L HIGH FLOW NC. 2100 PAGED SILKE BAINS APN WHO IS ACCOUNT SUPPORT REP FOR DR. MARKS. 2107 SILKE BAINS APN RETURNED CALL, VITAL SIGNS, MEDICATIONS, AND LAB RESULTS REVIEWED, INFORMED HIM THAT PATIENT IS UNABLE TO BE WEANED DOWN ON HIS OXYGEN DUE TO DESAT EPISODE, PER HIS ORDERS HOLD TRANSFER ORDERS DUE TO HYPOXIA, OK TO GIVE SCHEDULED MEDICATIONS AND LAB ORDERS FOR H&H AND POTASSIUM. 2200 PATIENT INCONTINENT OF URINE, PATIENT CLEANED AND COMPLETE BED LINEN CHANGE AND NEW GOWN PROVIDED, DENIES OTHER NEEDS. CALL LIGHT WITHIN REACH. 2300 REASSESSMENT COMPLETED PER FLOW SHEET, SEE FOR DETAILS. 0100 RESTING IN BED, DENIES NEEDS, CALL LIGHT WITHIN REACH. DUE TO HYPOXIA. 2199 LAB RESULTS REVIEWED, NO TREATMENT FOR POTASSIUM PER PROTOCOL.
[2019-07-18 21:43] LABS: HEMOGLOBIN 10.1 g/dL (13.5-17.5)
[2019-07-19] VITALS (23 sets, daily range): BP systolic 83–104; BP diastolic 38–56
--- NOTE | 2019-07-19 03:10 | NUR ---
REASSESSMENT COMPLETED PER FLOW SHEET, SEE FOR DETAILS. 0500 CHG BATH GIVEN. COMPLETE BED LINEN CHANGE PROVIDED. DENIES NEEDS. CALL LIGHT WITHIN REACH.
[2019-07-19 04:51] LABS: BASOPHILS 0 % (0-2); EOSINOPHILS 0.4 % (0-7); HEMATOCRIT 29.1 % (42.0-54.0); HEMOGLOBIN 9.5 g/dL (13.5-17.5); IMMATURE GRANULOCYTES 0.6 % (0-5); LYMPHOCYTES 4.6 % (15-50); MCH 26.8 pg (26.0-34.0); MCHC 32.6 g/dL (31.0-37.0); MCV 82.2 fL (80.0-100.0); MEAN PLATELET VOLUME 9.6 fL (7.4-10.4); MONOCYTES 6.1 % (2-11); NEUTROPHILS 88.3 % (40-80); RBC 3.54 10x6/uL (4.20-6.10); RDW 17.4 % (11.5-14.5); WBC 16.4 10x3/uL (4.8-10.8)
[2019-07-19 05:03] LABS: PLATELET COUNT 212 10x3/uL (130-400)
[2019-07-19 05:13] LABS: ALBUMIN 1.6 g/dL (3.4-5.0); ANION GAP 7.8 mmol/L (8-16); BILIRUBIN - TOTAL 0.97 mg/dL (0.2-1.3); CALCIUM 7.5 mg/dL (8.5-10.1); CARBON DIOXIDE 27.7 mmol/L (21.0-32.0); CREATININE - SERUM 1.3 mg/dL (0.6-1.3); POTASSIUM - SERUM 3.5 mmol/L (3.5-5.1); PROTEIN - SERUM 4.7 g/dL (6.4-8.2)
--- NOTE | 2019-07-19 07:30 | NUR ---
AWAKE AND ALERT. DENIES NEEDS OR PAIN. AWAITING PROCEDURE. NPO SINCE MIDNIGHT.
--- NOTE | 2019-07-19 10:30 | NUR ---
PIV L HAND DC'D WITH TIP INTACT.
--- NOTE | 2019-07-19 19:30 | NUR ---
REMOVED COBAN FROM LOWER EXTREMITY ALL WOUNDS WITHOUT REDNESS OR EDEMA. BOTTOM INCISION HAS 4X4 ATTACHED AND UNABLE TO REMOVE. REDRESSED WITH 4X4 WITH TAPE. SHIFT ASSESSMENT COMPLETE AT 1910.
[2019-07-20] VITALS (25 sets, daily range): BP systolic 79–113; BP diastolic 41–74
[2019-07-20 06:34] LABS: BASOPHILS 0.1 % (0-2); EOSINOPHILS 1.1 % (0-7); HEMATOCRIT 30.3 % (42.0-54.0); HEMOGLOBIN 9.8 g/dL (13.5-17.5); IMMATURE GRANULOCYTES 0.9 % (0-5); LYMPHOCYTES 4.8 % (15-50); MCH 26.6 pg (26.0-34.0); MCHC 32.3 g/dL (31.0-37.0); MCV 82.3 fL (80.0-100.0); MONOCYTES 6.2 % (2-11); NEUTROPHILS 86.9 % (40-80); PLATELET COUNT 212 10x3/uL (130-400); RBC 3.68 10x6/uL (4.20-6.10)
[2019-07-20 06:35] LABS: ALBUMIN 1.6 g/dL (3.4-5.0); BILIRUBIN - TOTAL 0.89 mg/dL (0.2-1.3); CALCIUM 7.5 mg/dL (8.5-10.1); CARBON DIOXIDE 27.5 mmol/L (21.0-32.0); CREATININE - SERUM 1.2 mg/dL (0.6-1.3); POTASSIUM - SERUM 3.5 mmol/L (3.5-5.1)
--- NOTE | 2019-07-20 10:00 | NUR ---
OOB TO CHAIR PER PT. O2 WEANED DOWN TO 6L. TOLERATING WELL.
--- NOTE | 2019-07-20 11:10 | NUR ---
ASSISTED BACK TO BED PER REQUEST. INCONTINENT OF STOOL. CLEANED UP AND BED LINEN/GOWN CHANGED.
--- NOTE | 2019-07-20 13:28 | NUR ---
Nutrition Follow-up: Advanced to clear liquids this AM; reports tolerating with slight nausea. Cystoscopy 07/19. Wt: 141# (was 143# on 07/18) Last BM: 07/18 per chart Labs noted: Ca 7.5, Alb 1.6 Meds noted: Lasix, Micro K -If unable to advance past clear liquids within 24-48 hours, rec initiate Procalamine. -RD following.
--- NOTE | 2019-07-20 14:00 | NUR ---
CONDOM CATH CAME OFF AND PT IS INCONTINENT OF URINE. PT BATHED AND BED LINEN CHANGED. NEW CONDOM CATH APPLIED.
--- NOTE | 2019-07-20 14:08 | EC ---
PATIENT:TERRY SHAHID DATE OF SERVICE: 07/11/19 SEX: M MEDICAL RECORD: [id number] DATE OF : 44 LOCATION:[place] [id number] AGE OF PATIENT: 78 ADMISSION DATE: 07/11/19 REFERRING PHYSICIAN: INTERPRETING PHYSICIAN: MARGARITO ZAMORA MD ECHOCARDIOGRAM REPORT ECHO CHARGES 5 ECHO LIMITED Date: 07/17/19 CLINICAL DIAGNOSIS: ASSESS EF ECHOCARDIOGRAPHIC MEASUREMENTS (adult normal given) AC root (d.<3.7cm) 3.8 cm LV Septum d (<1.2 cm> 1.2 cm Valve Excursion 1.6 cm LV Septum (systole) 1.4 cm Left Atria (s.<4.0cm> cm LVPW d(<1.2cm) 1.6 cm RV (d.<2.3cm) 4.0 cm LVPW (sytole) 1.7 cm LV diastole(<5.6CM) 6.3 cm MV E-F(>70mm/sec) cm LV systole 5.4 cm LVOT Diameter 1.6 cm MV exc.(>10mm) 1.9 cm Est.ejection fraction (50-75%) % DOPPLER: LVIT cm/sec A cm/sec E cm/sec LA cm/sec RVSP 57 mmHg LVOT 147 cm/sec AOP1/2T m/s Asc. Ao 205 cm/sec RVOT 72 cm/sec RA cm/sec PA 114 cm/sec AV Gradient Peak 16.80mmHg AV Mean 8.61 mmHg AV Area 1.5 cm MV Gradient Peak mmHg MV Mean mmHg MV Area cm COMMENTS: Retail Merchandising Specialist: Isaura PINTO Medicine Worker: 1 Dr. Zamora TAPE# PACS Pericardial Effusion Y DATE OF SERVICE: FINDINGS: 1. Left ventricular chamber size is dilated. Left ventricular systolic function is markedly depressed. Overall ejection fraction in the 15% to 20% range. 2. Left atrium, right atrium, and right ventricular chamber sizes are dilated giving 4-chamber dilatation. 4. Valvular structures have normal structure and motion. 5. Doppler interrogation reveals mild aortic insufficiency, [id number] ECHOCARDIOGRAM REPORT [id number] TERRY SHAHID mitral regurgitation, [id number] tricuspid regurgitation, no other valvular insufficiency or stenosis. Pulmonary systolic pressure is estimated at 57 mmHg. 6. Large pleural effusion is present, but no significant pericardial effusion is present. TRANSINT:[id number] Voice Confirmation ID: [id number] DOCUMENT ID: [id number] MARGARITO ZAMORA MD at 1408 CC: [id number] DICTATION DATE: 07/18/19 1529 OFFENDER EMPLOYMENT SPECIALIST: 07/19/19 0038 ADM IN [place] [id number] [place] [id number]
--- NOTE | 2019-07-20 17:30 | NUR ---
INCONTINENT OF LIQUID, GREEN STOOLS. BED LINEN CHANGE AND BATHED
--- NOTE | 2019-07-20 21:01 | NUR ---
PATIENT C/O OF LOWER ABDOMINAL PAIN. MORPHINE 1MG GIVEN DUE TO SBP 97 MAP (65). PATIENT STATES LOWER ABDOMEN IS THROBBING. PATIENT DENIES NEEDING TO URINATE THAT HE JUST DID.
--- NOTE | 2019-07-20 21:04 | NUR ---
DR. MARKS CALLED TO VERIFY HEPARIN GTT TO PREVIOUS REPORTED GI BLEED. DR. MARKS VERIFIED ORDERS TO GIVE HEPARIN GTT.
--- NOTE | 2019-07-20 21:12 | NUR ---
BLOOD SENT TO LAB FROM PICC LINE; LINE FLUSHED PER PROTOCOL. PATIENT STATES PAIN IS GETTING BETTER AT THIS TIME. CALL LIGHT WITHIN REACH.
[2019-07-20 21:23] LABS: INR 1.28 (0.85-1.17); PROTIME 15.4 SECONDS (11.6-15.0)
[2019-07-20 21:24] LABS: APTT 39.7 SECONDS (22.8-39.4)
--- NOTE | 2019-07-20 21:24 | NUR ---
SPOKE WITH EUSEBIO GARCIA APN TO VERIFY DOSING OF HEPARIN GTT.
[2019-07-20 23:06] LABS: HEMATOCRIT 29.2 % (42.0-54.0); HEMOGLOBIN 9.6 g/dL (13.5-17.5)
--- NOTE | 2019-07-20 23:32 | NUR ---
HEPARIN GTT STARTED PER PROTOCOL.
--- NOTE | 2019-07-20 23:55 | NUR ---
PATIENT CLEANED DUE TO INCONTINENCE OF STOOL, LINENS CHANGED, AND PATIENT REPOSITIONED. CALL LIGHT WIHTIN REACH, BED IN LOW POSITION.
[2019-07-21] VITALS (22 sets, daily range): BP systolic 79–110; BP diastolic 38–57
[2019-07-21 06:12] LABS: BASOPHILS 0 % (0-2); EOSINOPHILS 1.2 % (0-7); HEMATOCRIT 27.3 % (42.0-54.0); HEMOGLOBIN 8.9 g/dL (13.5-17.5); LYMPHOCYTES 3.8 % (15-50); MCH 26.6 pg (26.0-34.0); MCHC 32.6 g/dL (31.0-37.0); MCV 81.5 fL (80.0-100.0); MEAN PLATELET VOLUME 10.1 fL (7.4-10.4); MONOCYTES 5.9 % (2-11); NEUTROPHILS 88.1 % (40-80); PLATELET COUNT 203 10x3/uL (130-400); RBC 3.35 10x6/uL (4.20-6.10); RDW 18.1 % (11.5-14.5); WBC 15.5 10x3/uL (4.8-10.8)
--- NOTE | 2019-07-21 08:50 | NUR ---
UP IN BED AWAKE AT THIS TIME NO ACUTE DISTRESS NOTED. VSS. POTASSIUM LEVEL NOTED 3.5 THIS AM, POTASSIUM REPLACED PER ELECTROLYTE PROTOCOL. PT DENIES ANY NEEDS. CALL LIGHT IN REACH. HEPARIN GTT TITRATED TO ORDER; SEE FLOWSHEET FOR FURTHER INFORMATION. WILL CONTINUE PLAN OF CARE.
--- NOTE | 2019-07-21 10:23 | NUR ---
UP IN CHAIR AT THIS TIME WITH ASSIST FROM PHYSICAL THERAPY. NO ACUTE DISTRESS NOTED. VSS. CALL LIGHT IN REACH. WILL CONTINUE PLAN OF CARE.
--- NOTE | 2019-07-21 12:50 | NUR ---
NOTED PT REQUESTS TO GO BACK TO BED. PHYSICAL THERAPY NOTIFIED, STATED WILL BE HERE SHORTLY. VSS. WILL CONTINUE PLAN OF CARE.
[2019-07-21 13:43] LABS: INR 1.28 (0.85-1.17); PROTIME 15.4 SECONDS (11.6-15.0)
[2019-07-21 13:44] LABS: APTT 58.9 SECONDS (22.8-39.4)
--- NOTE | 2019-07-21 14:00 | NUR ---
PT ASSISTED BACK TO BED WITH ASSIST FROM PHYSICAL THERAPY. NOTED PT HAD INCONTINENT BOWEL MOVEMENT, LIQUID BROWN. PT NOTED TO HAVE TOUCHED STOOL AND HAD SMEARED IT ON HIS HANDS, BEDSIDE CHAIR WHICH HE WAS SITTING IN, IV TUBING, MEDICAL MONITORING EQUIPMENT, AND FLOOR. TOTAL LINEN CHANGE PROVIDED, CHG BATH PROVIDED, PICC LINE DRESSING CHANGED PER PROTOCOL USING STERILE PROCEDURE, ALL MONITORING EQUIPMENT CHANGED OUT, IV TUBING AND IV FLUIDS CHANGED OUT, NIKI CARE PROVIDED. ALSO PTT NOTED AT 58.9, HEPARIN GTT TITRATED TO ORDER, SEE FLOWSHEET. NEXT RECHECK TO BE SCHEDULED FOR 1999. WILL CONTINUE TO OBSERVE.
--- NOTE | 2019-07-21 15:57 | NUR ---
UP IN BED AT THIS TIME AWAKE. NO ACUTE DISTRESS NOTED. VSS. CALL LIGHT IN REACH. WILL CONTINUE PLAN OF CARE.
--- NOTE | 2019-07-21 17:48 | NUR ---
LARGE INCONTINENT STOOL NOTED AT THIS TIME, LIQUID BROWN. STOOL SPECIMEN SENT OFF TO CHECK FOR CDIFF. BED BATH GIVEN. TOTAL LINEN CHANGE PROVIDED. VSS. WILL CONTINUE PLAN OF CARE.
--- NOTE | 2019-07-21 19:00 | NUR ---
REPORT RECEIVED, SHIFT ASSESSMENT COMPLETE PER FLOW SHEET, PT AWAKE AND ALERT SITTING UP IN BED, DENIES PAIN OR NEEDS AT THIS TIME, RIGHT UPPER ARM PICC LINE DRASG C/D/I, SCD AND GILSON CALDERÓN, HOB ELEVATED, CALL LIGHT IN REACH, REPOSITIONED FOR COMFORT, VSS, NSR ON CM, WILL CONTINUE TO MONITOR
--- NOTE | 2019-07-21 22:00 | NUR ---
PT INITIATED CALL LIGHT, REQUESTED ASSIST TO USE URINAL, 100ML LANRE URINE COLLECTED IN URINAL, VOID NOTED ON BED PRIOR TO URINAL USE, PARTIAL LINEN CHANGE AND BATH COMPLETED, REPOSIONED FOR COMFORT, ELEVATED HOB AND EXTREMITIES, VSS, FLUTTER AND I/S COMPLETED 500-750ML x10, CALL LIGHT IN REACH, BED ALARM ON, WILL CONTINUE TO MONITOR
--- NOTE | 2019-07-21 23:00 | NUR ---
REASSESSMENT COMPLETE SEE FLOW SHEET FOR FURTHER, NO ACUTE CHANGE FROM PRIOR ASSESSMENT, I/S AND FLUTTER COMPLETED, TCDB, VSS, NSR ON CM, REPOSITIONED FOR COMFORT, WILL CONTINUE TO MONITOR
[2019-07-22] VITALS (30 sets, daily range): BP systolic 56–106; BP diastolic 38–67
[2019-07-22 02:49] LABS: BASOPHILS 0.1 % (0-2); EOSINOPHILS 0.8 % (0-7); HEMATOCRIT 28.3 % (42.0-54.0); IMMATURE GRANULOCYTES 0.6 % (0-5); LYMPHOCYTES 4.2 % (15-50); MCH 26.1 pg (26.0-34.0); MCHC 31.8 g/dL (31.0-37.0); MEAN PLATELET VOLUME 9.5 fL (7.4-10.4); MONOCYTES 4.8 % (2-11); NEUTROPHILS 89.5 % (40-80); PLATELET COUNT 191 10x3/uL (130-400); RBC 3.45 10x6/uL (4.20-6.10); RDW 18.3 % (11.5-14.5)
[2019-07-22 02:50] LABS: WBC 19.9 10x3/uL (4.8-10.8)
--- NOTE | 2019-07-22 03:00 | NUR ---
REASSESSMENT COMPLETE SEE FLOW SHEET FOR FURTHER, NO ACUTE CHANGE FROM PRIOR ASSESSMENT, PT AWAKE AND ALERT, SPO2% DECREASES WHEN PT REMOVES NC, I/S AND FLUTTER COMPLETED, LINEN AND GOWN CHANGED, HOB ELEVATED, REPOSITIONED FOR COMFORT, DENIES OTHER NEEDS AT THIS TIME, WILL CONTINUE TO MONITOR
--- NOTE | 2019-07-22 08:21 | NUR ---
pt inc of urine. bath and linens changed. pt/ptt drawn and sent to lab. breakfast tray served. pt eating with out difficulty. pt getting uo oob.
--- NOTE | 2019-07-22 11:13 | NUR ---
Nutrition Follow-up: Advanced to regular diet yesterday. Pt reports tolerating breakfast this AM. No c/o N/V. Noted pt with liquid stools yesterday. CDT negative. Diet: Regular, Ensure TID Wt: 144.4# Labs reviewed Meds noted: Micro K -Continue current diet as tolerated. -RD following.
--- NOTE | 2019-07-22 13:52 | NUR ---
PT'S DAUGHTER STATES THAT PT IS IN PAIN AND IS ASKING FOR HIS NORCO BE STARTED BACK. CALLED DR MARKS AND REC'D OK FOR NORCO TO BE STARTED BACK.
--- NOTE | 2019-07-22 15:06 | NUR ---
PT HYPOTENSIVE, CALLED DR MARKS, NS BOLUS STARTED. CONSULTED/CALLED DR PSARKS.
--- NOTE | 2019-07-22 19:30 | NUR ---
REPORT REC'D AND CARE ASSUMED, REC'D PT LYING IN BED, EYES CLOSED, EASILY AWAKENS, ORIENTED X 3, O2 @ 9L VIA HIGH FLOW NC, RIGHT UPPER ARM SWOLLEN AND RED, PICC LINE IN PLACE, DRSG CDI, SEE FLOWSHEET FOR FLUIDS, CM- SR, BP 96/52, PT COMPLAINS OF INTERMITTENT ABDOMINAL PAIN ACROSS LOWER ABDOMEN, PT DENIES FURTHER NEEDS, BED IN LOW POSITION, CALL LIGHT IN REACH.
--- NOTE | 2019-07-22 20:15 | NUR ---
PT INCONTINENT OF LARGE LOOSE GREEN STOOL, PARTIAL BATH AND COMPLETE LINEN CHANGE PROVIDED, JULISSA'S BUTT PASTE APPLIED TO REDDENED AREA ON BUTTOCKS, PT REPOSITIONED UP IN BED FOR COMFORT, CALL LIGHT IN REACH.
--- NOTE | 2019-07-22 21:15 | NUR ---
EVENING MEDS GIVEN, PT REQUESTING PAIN PILL FOR ABDOMEN, STATES " NOT TYLENOL THAT IS NOT STRONG ENOUGH", NORCO 5 GIVEN PO AT THIS TIME, PT REPOSITIONED ONTO RIGHT SIDE SUPPORTED WITH PILLOWS, WILL MONITOR CLOSELY FOR CHANGES.
--- NOTE | 2019-07-22 22:45 | NUR ---
PT INCONTINENT OF SMALL LIQUID GREEN STOOL, COMPLETE BATH AND LINEN CHANGE PROVIDED, PT REPOSITIONED UP IN BED AND ONTO BACK, PT CONFUSED AND LOOKING FOR A WHITE PHONE, EXPLAINED TO PT THERE WAS NO PHONE IN THE BED WITH HIM, ACTED LIKE THE CALL LIGHT IS WHAT HE WAS LOOKING FOR, ASSISTED PT TO TURN OFF TV, BP STABLE, CM SR .
--- NOTE | 2019-07-22 23:00 | NUR ---
REASSESSMENT COMPLETED, PT CONFUSED AT THIS TIME, THINKING HE SEES OBJECTS ON TABLE THAT ARE NOT THERE, DENIES PAIN, PT INFORMED OF THE CURRENT TIME AND ENCOURAGED TO TRY AND GET SOME SLEEP, VERBALIZED UNDERSTANDING, WILL CONT TO MONITOR CLOSELY FOR CHANGES.
[2019-07-23] VITALS (21 sets, daily range): BP systolic 80–125; BP diastolic 43–66
--- NOTE | 2019-07-23 01:00 | NUR ---
PT AWAKE ASKING FOR SOMETHING TO DRINK, JAMESON COLA PROVIDED ON REQUEST, PT DENIES PAIN OR OTHER NEEDS.
--- NOTE | 2019-07-23 02:21 | NUR ---
O2 SAT DECREASED TO 79%, UPON ENTERING ROOM FOUND THAT PT HAD REMOVED 9L H FLOW NC, NC PLACED BACK ON PT AND PT INSTRUCTED NO TO PULL OXYGEN OFF, COUGHING AND DEEP BREATHING DONE, PT WAS SPONTANEOUSLY USING INCENTIVE SPIROMETER EARLIER PULLING 750.
--- NOTE | 2019-07-23 03:30 | NUR ---
PT DOZING AT INTERVALS , REASSESSMENT COMPLETED, PT ORIENTED TO PERSON AND PLACE, STATES "I DON'T KNOW WHEN ASKED THE YEAR", PT ASSISTED TO REPOSITION FOR COMFORT, VSS, BED ALARM ON, WILL CONT TO MONITOR FOR CHANGES.
--- NOTE | 2019-07-23 04:40 | NUR ---
RADIOLOGY AT BS FOR AM CXRS, PT TOLERATED WELL, VSS.
--- NOTE | 2019-07-23 05:15 | NUR ---
PT INCONTINENT OF URINE, COMPLETE HIBICLENS BATH AND LINEN CHANGE PROVIDED, PT REPOSITIONED UP IN BED AND ONTO LEFT SIDE SUPPORTED WITH PILLOW, PT DENIES NEEDS, SR UP X 2, BED IN LOW POSITION, CALL LIGHT IN REACH, BED ALARM ON.
[2019-07-23 06:04] LABS: HEMATOCRIT 25.9 % (42.0-54.0); HEMOGLOBIN 8.3 g/dL (13.5-17.5); MCH 26.4 pg (26.0-34.0); MCV 82.5 fL (80.0-100.0); MEAN PLATELET VOLUME 10.1 fL (7.4-10.4); PLATELET COUNT 207 10x3/uL (130-400); RBC 3.14 10x6/uL (4.20-6.10); RDW 18.5 % (11.5-14.5); WBC 23.3 10x3/uL (4.8-10.8)
[2019-07-23 06:19] LABS: ALBUMIN 1.5 g/dL (3.4-5.0); BILIRUBIN - TOTAL 0.83 mg/dL (0.2-1.3); CALCIUM 7.7 mg/dL (8.5-10.1); CREATININE - SERUM 1.8 mg/dL (0.6-1.3); MAGNESIUM - SERUM 1.7 mg/dL (1.8-2.4); PHOSPHOROUS 2.3 mg/dL (2.5-4.9); TROPONIN-I 0.035 ng/mL (0.000-0.060)
[2019-07-23 06:58] LABS: EOSINOPHILS 2 % (0-7); LYMPHOCYTES 4 % (15-50); MONOCYTES 1 % (2-11); NEUTROPHILS 92 % (40-80); PLATELET ESTIMATE NORMAL
--- NOTE | 2019-07-23 07:43 | NUR ---
MAG REPLACEMENT PER ELECTROLYTE PROTOCOL. BREAKFAST TRAY SERVED AND PT FEEDS SELF AFTER MEAL TRAY SET UP.
--- NOTE | 2019-07-23 09:22 | NUR ---
0900- PT UP TO CHAIR WITH PT.
--- NOTE | 2019-07-23 10:15 | NUR ---
DR MIJARES HERE ON ROUNDS.
--- NOTE | 2019-07-23 10:15 | NUR ---
PT ASKING TO GO BACK TO BED FROM CHAIR. ASSISTED PT TO REPOSITION IN CHAIR. PT AGREABLE TO SIT UP.
--- NOTE | 2019-07-23 14:24 | NUR ---
PT ASSISTED BACK TO BED. DOBUTAMINE GTT STARTED ORDERED AND 1ST UPRBC'S BEGAN. PT WITH LOOSE STOOLS. CLEANED AND LINENS CHANGED.
--- NOTE | 2019-07-23 19:20 | NUR ---
REPORT REC'D AND CARE ASSUMED, REC'D PT RESTING IN BED, AWAKE AND ALERT, O2 AT 7LITERS HIGH FLOW VIA NC, O2 SAT 98%, RIGHT UPPER ARM PICC LINE DRSG CDI, RIGHT ARM WITH REDENESS, SEMIFIRM, AND EDEMA, AWARE, CM-SR @ 72, ORIENTED X 3, NS @ 10CC/HR, DOBUTAMINE @ 5MCG/KG/MIN OR 10.5 CC/HR, HEPARIN @ 900 UNITS/HR AND 2ND UNIT PRBC INFUSING AT THIS TIME, ABD SOFT, PT DENIES PAIN AT THIS TIME, MAEE, PPP, BEDPAD WET, PARTIAL BATH AND LINEN CHANGE PROVIDED WITH OFF GOING SHIFT, PT REPOSITIONED UP IN BED FOR COMFORT, BED IN LOW POSITION, SR UP X 2, CALL LIGHT IN REACH.
--- NOTE | 2019-07-23 19:50 | NUR ---
PRBC'S COMPLETED, NO S/S OF TRANSFUSION REACTION NOTED.
--- NOTE | 2019-07-23 20:40 | NUR ---
EVENING MEDS GIVEN, PT REPOSITIONED IN BED FOR COMFORT, VSS, WILL CONT TO MONITOR FOR CHANGES.
--- NOTE | 2019-07-23 23:15 | NUR ---
REASSESSMENT COMPLETED, PT CONFUSED UPON AWAKENING, O2 SAT 98, RT AT BS, OXYGEN WEANED TO 3LITERS VIA HIGH FLOW, URINAL EMPTIED OF 275CC YELLOW URINE, PERICARE PROVIDED, URINAL PLACED WITHIN EASY REACH, PT DENIES FURTHER NEEDS, SR UP X 2, CALL LIGHT IN REACH.
[2019-07-24] VITALS (24 sets, daily range): BP systolic 81–113; BP diastolic 41–56
--- NOTE | 2019-07-24 02:00 | NUR ---
NO CHANGES IN STATUS AT THIS TIME, VSS.
--- NOTE | 2019-07-24 03:10 | NUR ---
REASSESSMENT COMPLETED, PT CONFUSED TO TIME AND PLACE UPON AWAKENING, EASILY REORIENTED, PT DENIES PAIN, BP STABLE, PT ASSISTED TO REPOSITION FOR COMFORT, SR UP X 2, BED IN LOW POSITION.
--- NOTE | 2019-07-24 04:15 | NUR ---
RADIOLOGY AT BS FOR AM CXR
--- NOTE | 2019-07-24 05:10 | NUR ---
URINAL EMPTIED OF 300 CC CLEAR YELLOW URINE, BED PAD WET, COMPLETE HIBICLENS BATH AND LINEN CHANGE PROVIDED, PT REPOSITIONED UP IN BED AND ONTO RIGHT SIDE SUPPORTED WITH PILLOWS, HEELS BRIDGED, SR UP X 2, CALL LIGHT IN REACH.
[2019-07-24 05:13] LABS: BASOPHILS 0 % (0-2); EOSINOPHILS 2.3 % (0-7); HEMOGLOBIN 10.2 g/dL (13.5-17.5); IMMATURE GRANULOCYTES 0.5 % (0-5); MCH 27.3 pg (26.0-34.0); MCHC 32.9 g/dL (31.0-37.0); MCV 83.1 fL (80.0-100.0); MEAN PLATELET VOLUME 10.1 fL (7.4-10.4); MONOCYTES 3.9 % (2-11); NEUTROPHILS 88.3 % (40-80); PLATELET COUNT 220 10x3/uL (130-400); RBC 3.73 10x6/uL (4.20-6.10); RDW 17.5 % (11.5-14.5); WBC 20.3 10x3/uL (4.8-10.8)
[2019-07-24 05:36] LABS: ALBUMIN 1.6 g/dL (3.4-5.0); BILIRUBIN - TOTAL 1.07 mg/dL (0.2-1.3); CALCIUM 7.6 mg/dL (8.5-10.1); CARBON DIOXIDE 26.2 mmol/L (21.0-32.0); MAGNESIUM - SERUM 2.1 mg/dL (1.8-2.4); POTASSIUM - SERUM 4.2 mmol/L (3.5-5.1); PROTEIN - SERUM 5.4 g/dL (6.4-8.2)
[2019-07-24 05:41] LABS: CREATININE - SERUM 2.3 mg/dL (0.6-1.3); PHOSPHOROUS 3.2 mg/dL (2.5-4.9)
--- NOTE | 2019-07-24 07:47 | NUR ---
POSITIONED PT IN BED FOR BREAKFAST. PT FEEDING SELF AFTER MEAL TRAY SET UP.
--- NOTE | 2019-07-24 09:46 | NUR ---
PT OOB TO CHAIR X 30MIN. ASKING TO GO BACK TO BED. PT ASSISTED BACK TO BED WITH 2 PERSON ASST.
--- NOTE | 2019-07-24 10:43 | NUR ---
DR MARKS HERE. DR MIJARES HERE.
--- NOTE | 2019-07-24 14:32 | NUR ---
BLADDER SCAN DONE. RESULTS 325 CC. REPORTED TO CECILIO PLATA.
--- NOTE | 2019-07-24 15:37 | NUR ---
PT TO CT FOR CT ABD.
--- NOTE | 2019-07-24 17:52 | NUR ---
PT INC OF LOOSE BROWN STOOL. LOMOTIL GIVEN, BATH AND LINENS CHANGED.
--- NOTE | 2019-07-24 19:13 | NUR ---
BEDSIDE SHIFT REPORT GIVEN BY DEPARTING RN. ORIENTED PT TO NIGHT NURSE. DENIES ANY NEEDS AT THIS TIME.
--- NOTE | 2019-07-24 19:50 | NUR ---
ASSESSMENT COMPLETE. PT AAOX4. LAYING IN BED WITH EYES CLOSED. C/O ABD PAIN OF 5/10 ON NUMERIC SCALE. PERRLA. CRACKLES HEARD BILATERALLY DURING LUNG AUSCULTATION. IS INITIATED WITH FLUTTER VALVE. RT ARM SWELLING DEPENDENT AND TENDER TO TOUCH. RT UPPER ARM PICC LINE PATENT. SEE IV DRIP FLOWSHEET FOR FULL MEDICATION DRIP RATES. STAGE ONE PRESSURE ULCER LOCATED ON COCCYX. CONDOM CATH IN PLACE AND DRAINING YELLOW URINE IN COLLECTION CONTAINER. DENIES ANY NEEDS AT THIS TIME. SAFETY MEASURES IN PLACE. CBIR. SEE FLOWSHEET FOR FULL HEAD TO TOE DETAILS.
--- NOTE | 2019-07-24 20:27 | NUR ---
HS MEDS GIVEN WITHOUT DIFFICULTY. PO SWALLOWED ONE AT A TIME. DENIES ANY NEEDS AT THIS TIME.
--- NOTE | 2019-07-24 20:54 | NUR ---
BATH AND LINEN CHANGE OFFERED. PT DECLINED STATING, "I'D LIKE TO HAVE MY BATH IN THE MORNING". REPLACEMENT LINENS AND BATH EQUIPMENT AT BEDSIDE. REPOSITIONED. TOLERATED WELL.
--- NOTE | 2019-07-24 23:04 | NUR ---
ASLEEP SHOWING NO SS OF DISTRESS. REASSESSMENT COMPLETE. NO NEW CHANGES. REMAINS AAOX4. VSS. DENIES ANY NEEDS AT THIS TIME. FRESH ICE DRINK PROVIDED. SAFETY MEASURES IN PLACE. CBIR. REPOSITIONED FOR COMFORT.
[2019-07-25] VITALS (23 sets, daily range): BP systolic 97–143; BP diastolic 42–72
[2019-07-25 00:55] LABS: HEMATOCRIT 28.9 % (42.0-54.0); HEMOGLOBIN 9.2 g/dL (13.5-17.5); MCH 26.5 pg (26.0-34.0); MCHC 31.8 g/dL (31.0-37.0); MCV 83.3 fL (80.0-100.0); MEAN PLATELET VOLUME 9.9 fL (7.4-10.4); RBC 3.47 10x6/uL (4.20-6.10); RDW 17.8 % (11.5-14.5); WBC 15.6 10x3/uL (4.8-10.8)
[2019-07-25 04:42] LABS: BASOPHILS 0.1 % (0-2); EOSINOPHILS 4.2 % (0-7); HEMOGLOBIN 9.8 g/dL (13.5-17.5); IMMATURE GRANULOCYTES 0.5 % (0-5); LYMPHOCYTES 6.5 % (15-50); MCH 27.2 pg (26.0-34.0); MCHC 32.7 g/dL (31.0-37.0); MCV 83.3 fL (80.0-100.0); MEAN PLATELET VOLUME 10.2 fL (7.4-10.4); MONOCYTES 5.6 % (2-11); NEUTROPHILS 83.1 % (40-80); PLATELET COUNT 278 10x3/uL (130-400); RDW 17.8 % (11.5-14.5); WBC 14.9 10x3/uL (4.8-10.8)
[2019-07-25 05:11] LABS: ALBUMIN 1.7 g/dL (3.4-5.0); ANION GAP 10.5 mmol/L (8-16); BILIRUBIN - TOTAL 0.99 mg/dL (0.2-1.3); CALCIUM 7.7 mg/dL (8.5-10.1); CARBON DIOXIDE 25.7 mmol/L (21.0-32.0); CREATININE - SERUM 2.4 mg/dL (0.6-1.3); POTASSIUM - SERUM 4.2 mmol/L (3.5-5.1); PROTEIN - SERUM 5.4 g/dL (6.4-8.2)
--- NOTE | 2019-07-25 07:47 | NUR ---
REPORT RECEIVED. SHIFT ASSESSMENT COMPLETE. PT AWAKENS TO VOICE. ORIENTED. DENIES PAIN AT THIS TIME. SAYS HE DOES NOT WANT BREAKFAST TODAY, NOT HUNGRY. RIGHT ARM IS EDEMATOUS AND SOFT. PT HAS PICC LINE IN THIS ARM. WILL DISCUSS WITH PHYSICIAN NEED TO HAVE MOVED SINCE PT NOTED TO HAVE DVT IN THIS ARM. LEFT UPPER ARM ALSO SHOWING SOME EDEMA, ALSO SOFT. LUNG SOUNDS ALL SANCHEZ HAVE CRACKLES. NSR ON THE MONITOR. PT IS AFEBRILE.
--- NOTE | 2019-07-25 10:00 | NUR ---
CHAIR ALARM PLACED UNDER PT AND TURNED ON
--- NOTE | 2019-07-25 10:14 | NUR ---
Nutrition Follow-up: Pt reports eating small amt of breakfast this AM. Diet: Regular, Ensure TID PO intake: 30% avg x 6 meals Wt: 153# Last BM: 07/25 Labs reviewed Meds noted: Bumex, Micro K, Albumin -Continue current diet as tolerated. -May consider appetite stimulant. -If PO intake remains poor, rec Procalamine. -RD following.
--- NOTE | 2019-07-25 10:24 | NUR ---
PT UP IN CHAIR AT THIS TIME. HAD BEEN ASSISTED BY PHYSICAL THERAPIST. WANTING TO GO BACK TO BED, EXPLAINED PART OF THERAPY NEEDS TO BE UP FOR A WHILE. PT INDICATED HE UNDERSTOOD. CALL LIGHT IN REACH.
--- NOTE | 2019-07-25 12:23 | NUR ---
FAMILY AT BEDSIDE. CAME TO DESK SAYING PT C/O PAIN. PAIN MEDICATION PROVIDED FOR PAIN LEVEL OF 6. INDICATES PAIN IS ACROSS UPPER ABDOMEN AND HAS A HEADACHE. SCHEDULED MEDICATIONS PROVIDED. DAUGHTERS WERE ASKING WHEN PATIENT WOULD BE GETTING OUT OF ICU. LET HER KNOW UNSURE OF WHEN IT WILL BE BECAUSE PT IS ON DRIPS FOR HEART AT THIS TIME. PT WAS REPOSITIONED IN CHAIR FOR COMFORT. CALL LIGHT IN REACH.
--- NOTE | 2019-07-25 14:33 | NUR ---
PT CLEANED UP FROM EPISODE OF INCONTINENCE OF STOOL. THEN WALKED WITH PHYSICAL THERAPY USING WALKER FROM CHAIR ON ONE SIDE OF ROOM TO AROUND THE BED TO OTHER SIDE. NOW RESTING IN BED. CALL LIGHT IN REACH.
--- NOTE | 2019-07-25 17:41 | NUR ---
new picc line has been placed. all new iv lines started. pt given dinner. ate 1 or 2 bites and drank his milk and half of his ensure.
--- NOTE | 2019-07-25 19:06 | NUR ---
BEDSIDE SHIFT REPORT GIVEN BY DEPARTING RN. PT LAYING IN BED WITH EYES CLOSED. AAOX4. PERRLA. DENIES PAIN AT THIS TIME. 4L NC WITH 95% O2 SAT. NO DISTRESS NOTED. LLL CRACKLES AUSCULTATED. LUDWIG PICC PATENT AND INFUSING MD ORDERED MEDS. CONDOM CATH IN PLACE AND DRAINING TO GRAVITY WITH COLLECTION CONTAINER ON ICE FOR 24H URINE COLLECTION. VSS. REPOSITIONED FOR COMFORT. DENIES ANY NEEDS AT THIS TIME. SAFETY MEASURES IN PLACE. CBIR.
--- NOTE | 2019-07-25 23:13 | NUR ---
REASSESSMENT COMPLETE. NO NEW CHANGES NOTED IN PT CONDITION. VSS. REPOSITIONED FOR COMFORT. SAFETY MEASURES IN PLACE. CBIR.
[2019-07-26] VITALS (17 sets, daily range): BP systolic 117–154; BP diastolic 47–78
--- NOTE | 2019-07-26 03:04 | NUR ---
REASSESSMENT COMPLETE. NO NEW CHANGES NOTED. ASLEEP SHOWING NO SS OF DISTRESS. VSS. REPOSITIONED FOR COMFORT.
--- NOTE | 2019-07-26 04:08 | NUR ---
COMPLETE BED BATH AND LINENS CHANGED. TOLERATED WELL.
[2019-07-26 05:25] LABS: BASOPHILS 0.2 % (0-2); EOSINOPHILS 3.7 % (0-7); HEMATOCRIT 29.3 % (42.0-54.0); HEMOGLOBIN 9.3 g/dL (13.5-17.5); IMMATURE GRANULOCYTES 0.4 % (0-5); LYMPHOCYTES 5.8 % (15-50); MCH 27.1 pg (26.0-34.0); MCHC 31.7 g/dL (31.0-37.0); MEAN PLATELET VOLUME 9.9 fL (7.4-10.4); MONOCYTES 7.3 % (2-11); NEUTROPHILS 82.6 % (40-80); PLATELET COUNT 322 10x3/uL (130-400); RBC 3.43 10x6/uL (4.20-6.10); RDW 18.4 % (11.5-14.5); WBC 11.5 10x3/uL (4.8-10.8)
[2019-07-26 05:34] LABS: MCV 85.4 fL (80.0-100.0)
[2019-07-26 05:39] LABS: ANION GAP 7.8 mmol/L (8-16); CALCIUM 7.5 mg/dL (8.5-10.1); CARBON DIOXIDE 29.4 mmol/L (21.0-32.0); CREATININE - SERUM 2.5 mg/dL (0.6-1.3); MAGNESIUM - SERUM 1.9 mg/dL (1.8-2.4); PHOSPHOROUS 3.3 mg/dL (2.5-4.9); POTASSIUM - SERUM 4.2 mmol/L (3.5-5.1); VANCOMYCIN - RANDOM 33.1 ug/mL (10.0-20.0)
--- NOTE | 2019-07-26 07:10 | NUR ---
REPORT RECEIVED. PT AWAKE AND ALERT. HE HAS A LEFT PICC WITH DOBUTAMINE INFUSING AT 5MCG/KG/MIN, HEPARIN AT 800 UNITS/ML, AND NS AT 5ML/HR. HE IS ON O2 AT 4L. HE HAS A CONDOM CATH FROM WHICH WE ARE COLLECTING A 24 HR URINE. HEAD TO TOE ASSESSMENT COMPLETED. VSS. WILL CONTINUE TO MONITOR.
--- NOTE | 2019-07-26 09:12 | NUR ---
PT INCONTINENT OF BOWEL. LIQUID. PT CLEANED AND REPOSITIONED. TOLERATED WELL. VSS. WILL CONTINUE TO MONITOR.
--- NOTE | 2019-07-26 11:45 | NUR ---
PT WORKED WITH PHYSICAL THERAPY. UP IN CHAIR AT THIS TIME.
[2019-07-26 12:21] LABS: CREATININE - URINE 14.6 mg/dL (30-125); PROTEIN - URINE 17.4 mg/dL (0.0-11.9)
[2019-07-26 12:24] LABS: CREATININE - SERUM 2.5 mg/dL (0.6-1.3)
--- NOTE | 2019-07-26 13:55 | NUR ---
PT BACK TO BED. XR OF CHEST DONE. PT INCONTINENT OF STOOL. CLEANED. BARRIER CREAM APPLIED TO BOTTOM. LAB DRAWN FOR PTT.
--- NOTE | 2019-07-26 14:33 | NUR ---
PTT DRAWN AND IS 77.0. NO CHANGE PER ORDER. WILL RECHECK AGAIN IN THE AM (07/27/19)
--- NOTE | 2019-07-26 15:20 | NUR ---
Nutrition Follow-up: PO intake remains poor. Raquel added. Diet: Regular, Ensure TID PO intake: 10-15% yesterday Wt: 149.9# (153# yesterday) Last BM: 07/26 Labs reviewed Meds noted: Megace, Bumex, Micro K Pt with severe malnutrition of acute illness R/T CHF, diverticulitis AEB: 1. <=50% intake of est energy needs for >=5 days. 2. Fluid accumulation. 3. Reduced boarding specialist strength. -Continue current diet as tolerated. -RD following.
[2019-07-26 15:55] LABS: APPEARANCE CLEAR (CLEAR); COLOR YELLOW (YELLOW)
[2019-07-26 15:56] LABS: BILIRUBIN NEGATIVE (NEGATIVE); GLUCOSE NEGATIVE (NEGATIVE); KETONE NEGATIVE (NEGATIVE); NITRITE NEGATIVE (NEGATIVE); PROTEIN NEGATIVE (NEGATIVE); UROBILINOGEN NORMAL (NORMAL)
--- NOTE | 2019-07-26 15:56 | NUR ---
NEW SMALL CONDOM CATH APPLIED TO PT. TOLERATED WELL.
--- NOTE | 2019-07-26 17:23 | NUR ---
PT ATE ABOUT 1/3 OF HIS SPAGHETTI AND HALF OF HIS POUND CAKE. VSS. WILL CONTINUE TO MONITOR.
--- NOTE | 2019-07-26 19:07 | NUR ---
BEDSIDE SHIFT REPORT GIVEN BY DEPARTING RN. PT LAYING IN BED ASLEEP SHOWING NO SS OF DISTRESS. DENIES ANY NEEDS AT THIS TIME. C/O ABD PAIN OF 610. PRN PAIN MED AND LOMOTIL GIVEN. SEE MAR FOR FULL DETAILS.
--- NOTE | 2019-07-26 19:21 | NUR ---
ASSESSMENT COMPLETE. AAOX4. PERRLA. BILATERAL LUNGS WET AND COARSE SOUNDING. NO SOB OR DISTRESS NOTED AT THIS TIME. O2 SAT 96% ON 3L NC. IS IN USE. IS PULLED TO 500. NURSE DEMONSTRATED PROPER IS USAGE. DEMONSTRATED RETURN BY PT. VSS. LEFT UA PICC NOTED AND INFUSING MD ORDERED MEDS WITHOUT DIFFICULTY. AFEBRILE. REPORTED BY DAY NURSE MULTIPLE BOUTS OF DIARHEA. LINENS CLEAN AND DRY AT THIS TIME. CONDOM CATH IN PLACE AND DRAINING TO GRAVITY. SAFETY MEASURES IN PLACE. CBIR.
--- NOTE | 2019-07-26 19:47 | NUR ---
DR. SPARKS PAGED REGARDING BILATERAL LUNG AUSCULTATION FINDINGS. AWAITING RETURN CALL AT THIS TIME. O2 SAT 98% ON 3L NC. NO DISTRESS NOTED AT THIS TIME.
--- NOTE | 2019-07-26 19:51 | NUR ---
DR SPARKS RETURNED PAGE. ONE TIME ORDER OF 40 MG LASIX IVP. ORDER RECEIVED, VERIFIED, AND READ BACK.
--- NOTE | 2019-07-26 22:22 | NUR ---
REASSESSMENT COMPLETE. NO NEW CHANGES. VSS. LUNG SOUNDS CLEAR. WATCHING TV SHOWING NO SS OF DISTRESS. C/O ABD PAIN OF 5/10. DENIES ANY NEEDS. SEE FLOWSHEET FOR FULL DETAILS. SAFETY MEASURES IN PLACE. CBIR.
--- NOTE | 2019-07-26 22:57 | NUR ---
BM NOTED IN BED LINENS. BATH GIVEN. LINENS CHANGED. TOLERATED WELL.
--- NOTE | 2019-07-26 23:38 | NUR ---
BM IN BED. LINENS CHANGED. PRN MED GIVEN. SEE MAR
[2019-07-27] VITALS (19 sets, daily range): BP systolic 90–141; BP diastolic 43–64
--- NOTE | 2019-07-27 03:01 | NUR ---
REASSESSMENT COMPLETE. NO NEW CHANGES. VSS. SEE FLOWSHEET FOR FULL DETAILS.
[2019-07-27 05:06] LABS: BASOPHILS 0.1 % (0-2); EOSINOPHILS 4.3 % (0-7); HEMATOCRIT 29.2 % (42.0-54.0); HEMOGLOBIN 9.3 g/dL (13.5-17.5); IMMATURE GRANULOCYTES 0.5 % (0-5); LYMPHOCYTES 7.4 % (15-50); MCH 27.4 pg (26.0-34.0); MCHC 31.8 g/dL (31.0-37.0); MCV 86.1 fL (80.0-100.0); MEAN PLATELET VOLUME 9.9 fL (7.4-10.4); MONOCYTES 8.6 % (2-11); NEUTROPHILS 79.1 % (40-80); PLATELET COUNT 363 10x3/uL (130-400); RBC 3.39 10x6/uL (4.20-6.10); RDW 18.5 % (11.5-14.5)
[2019-07-27 05:29] LABS: ANION GAP 6.9 mmol/L (8-16); CALCIUM 7.9 mg/dL (8.5-10.1); CARBON DIOXIDE 31.2 mmol/L (21.0-32.0); CREATININE - SERUM 2.9 mg/dL (0.6-1.3); POTASSIUM - SERUM 4.1 mmol/L (3.5-5.1)
--- NOTE | 2019-07-27 07:05 | NUR ---
REPORT RECIEVED, SHIFT ASSESSMENT COMPLETE, PT IS ALERT AND ORIENTED, LYING IN BED, ON 2L NC WITH 97% O2 SAT, ALL PPP, VSS, CALL LIGHT IN REACH
--- NOTE | 2019-07-27 10:20 | NUR ---
PT UPTO CHAIR PER PT, TOLERATED WELL
--- NOTE | 2019-07-27 11:30 | NUR ---
LUNCH TRAY EATEN, PT UP IN CHAIR
--- NOTE | 2019-07-27 13:00 | NUR ---
PT BACK TO BED AT THIS TIME, TOLERATED WELL
--- NOTE | 2019-07-27 15:20 | NUR ---
PARTIAL LINEN CHANGE, INCONTINENT OF URINE
--- NOTE | 2019-07-27 15:42 | NUR ---
PT HAS A STAGE 2 PRESSURE INJURY ON HIS SACRUM MEASURING 1CM X 1CM. COVERED WITH MEPILEX SACRAL DRESSING AND ENCOURAGED PT TO REPOSITION HIMSELF OFF HIS BOTTOM EVERY 2 HOURS WHILE IN THE BED, HOURLY IF HE'S UP IN A CHAIR. HE VOICED UNDERSTANDING. WOUND CARE WILL MONITOR. ALSO RECOMMENDED AN AIR OVERLAY MATTRESS.
--- NOTE | 2019-07-27 17:00 | NUR ---
PT UPTO CHAIR AT THIS TIME, TOLERATED WELL
--- NOTE | 2019-07-27 19:00 | NUR ---
Received patient resting in bed with eyes closed, assessment completed per flowsheet. Patient answers appropriately/follows instructions. S1/S2 noted NSR on telemetry, rythmic and regular. Breathing is shallow on 2L via NC with O2 sat 96%, lung sounds clear bilateral upper and mid with diminished lower. Abdomen is round/soft with bowel sounds active x4, non-tender. Patient incontinent with small yellow urine noted, small sore noted on penis. All pulses palpable with cap refill < 3 sec, skin warm/dry. Denies pain or other needs at this time, repositioned for comfort. See flowsheet for details, all VSS and will continue to monitor.
--- NOTE | 2019-07-27 21:00 | NUR ---
HS meds given without difficulty, slight disorientation noted to time. Patient reoriented easily with appropriate responses, denies pain or other needs and will continue to monitor.
--- NOTE | 2019-07-27 23:15 | NUR ---
Patient resting in bed with eyes closed, no s/s of distress at this time. S1/S2 noted NSR on telemetry, rythmic and regular. Breathing is shallow on 2L via NC with O2 sat 95%, lung sounds clear bilateral upper and mid with diminished lower. All pulses palpable with cap refill < 3 sec, skin warm/dry. Denies pain or other needs at this time, all VSS and will continue to monitor.
[2019-07-28] VITALS (23 sets, daily range): BP systolic 87–134; BP diastolic 45–64
--- NOTE | 2019-07-28 01:00 | NUR ---
Patient laying in bed with eyes open, no s/s of distress at this time. Patient incontinent of bladder in bed, cleaned with linen change performed. Denies pain or other needs at this time, all VSS and will continue to monitor.
--- NOTE | 2019-07-28 02:00 | NUR ---
IV lines changed per protocol, drink provided at request. No further needs at this time, all VSS and will continue to monitor.
--- NOTE | 2019-07-28 03:00 | NUR ---
Reassessment completed per flowsheet, no changes noted from previous assessment. S1/S2 noted NSR on telemetry, rythmic and regular. Breathing is shallow on 2L via NC with O2 sat 94%, lung sounds clear bilateral upper and mid with diminished lower. All pulses palpable with cap refill < 3 sec, skin warm/dry. Denies pain or other needs at this time, see flowsheet for details. All VSS and will continue to monitor.
--- NOTE | 2019-07-28 05:00 | NUR ---
Patient resting in bed with eyes open, no s/s of distress at this time. Repositioned for comfort, no further needs at this time and will continue to monitor.
[2019-07-28 06:38] LABS: ANION GAP 7.8 mmol/L (8-16); CALCIUM 8.2 mg/dL (8.5-10.1); CARBON DIOXIDE 31.4 mmol/L (21.0-32.0); CREATININE - SERUM 3.1 mg/dL (0.6-1.3); MAGNESIUM - SERUM 1.9 mg/dL (1.8-2.4); POTASSIUM - SERUM 4.2 mmol/L (3.5-5.1)
--- NOTE | 2019-07-28 07:00 | NUR ---
SHIFT ASSESSMENT COMPLETED. PT CARE ASSUMED, MONITORS ON AND WORKING, VITALS STABLE, MONITORS ON AND WORKING, NO SIGNS/SYMPTOMS OF PAIN OR DISCOMFORT NOTED AT THIS TIME, CALL LIGHT WITHIN REACH, WILL CONTINUE TO OBSERVE.
[2019-07-28 07:36] LABS: BASOPHILS 0.3 % (0-2); EOSINOPHILS 3.9 % (0-7); HEMATOCRIT 30.2 % (42.0-54.0); HEMOGLOBIN 9.7 g/dL (13.5-17.5); IMMATURE GRANULOCYTES 0.3 % (0-5); LYMPHOCYTES 8.3 % (15-50); MCH 27.5 pg (26.0-34.0); MCHC 32.1 g/dL (31.0-37.0); MCV 85.6 fL (80.0-100.0); MEAN PLATELET VOLUME 10.2 fL (7.4-10.4); NEUTROPHILS 78.2 % (40-80); PLATELET COUNT 457 10x3/uL (130-400); RBC 3.53 10x6/uL (4.20-6.10); RDW 18.7 % (11.5-14.5); WBC 11.5 10x3/uL (4.8-10.8)
--- NOTE | 2019-07-28 09:00 | NUR ---
PT CLEANED AND COMPLETE LINEN CHANGE DONE AT THIS TIME, CALL LIGHT WITHIN REACH, WILL CONTINUE TO OBSERVE.
--- NOTE | 2019-07-28 11:00 | NUR ---
PT UP TO CHAIR, PT TOLERATED WELL. MONITORS ON AND WORKING, VITALS STABLE. PT ALERT AND ORIENTED AT THIS TIME BUT NEEDS CONSTANT REDIRECTING AND REMINDING TO LEAVE OXYGEN ON. NO FURTHER CHANGES AT THIS TIME, SEE FLOW SHEET FOR FURTHER DETAILS.
--- NOTE | 2019-07-28 12:59 | NUR ---
Nutrition Follow-up: Pt reports improved appetite/PO intake. States he ate ~50% of breakfast this AM and has been drinking Ensure. Noted pt now with stage 2 pressure injury to sacrum. Diet: Regular, Ensure TID PO intake: 85% of meals yesterday, ~50% of breakfast this AM Wt: 144# (down from 149.9# on 07/16) Last BM: 07/28 Labs noted: BUN 29, Cre 3.1, GFR 21, K+ 4.2, PO4 3.0, Ca 8.2 Meds noted: Megace, Albumin, Micro K -Continue current diet as tolerated. -RD following.
--- NOTE | 2019-07-28 13:00 | NUR ---
PT SITTING UP IN CHAIR, MONITORS ON AND WORKING, VITALS STABLE CALL LIGHT WITHIN REACH, WILL CONTINUE TO OBSERVE.
--- NOTE | 2019-07-28 15:00 | NUR ---
PT ASSISTED BACK INTO BED, MONITORS ON AND WORKING VITALS STABLE, CALL LIGHT WITHIN REACH SEE FLOW SHEET FOR FURTHER DETAILS. WILL CONTINUE TO OBSERVE.
--- NOTE | 2019-07-28 17:00 | NUR ---
PT SITTING UP IN BED, MONITORS ON AND WORKING, VITALS STABLE. CALL LIGHT WITHIN REACH, WILL CONTINUE TO OBSERVE.
--- NOTE | 2019-07-28 19:00 | NUR ---
Received patient resting in bed with eyes closed, assessment completed per flowsheet. Patient answers appropriately/follows instructions. S1/S2 noted NSR on telemetry, rythmic and regular. Breathing is shallow on 3L via HFNC with O2 sat 94%, lung sounds clear bilateral upper and mid with diminished lower. Abdomen is round/soft with bowel sounds active x4, non-tender. Patient incontinent of bladder, cleaned with linen change performed. All pulses palpable with cap refill < 3 sec, skin warm/dry. Denies pain or other needs at this time, see flowsheet for details. All VSS and will continue to monitor.
--- NOTE | 2019-07-28 21:00 | NUR ---
Patient incontinent of bowel/bladder in bed, cleaned with linen change performed. HS meds given without difficulty, repositioned for comfort. Denies pain or further needs at this time, see ellen for details.
--- NOTE | 2019-07-28 23:00 | NUR ---
Reassessment completed per flowsheet, no changes noted from previous assessment. S1/S2 noted NSR on telemetry, rythmic and regular. Breathing is shallow on 3L via HFNC with O2 sat 94%, lung sounds clear bilateral upper and mid with diminished lower. All pulses palpable with cap refill < 3 sec, skin warm/dry. Repositioned for comfort, see flowsheet for details. All VSS and will continue to monitor.
[2019-07-29] VITALS (24 sets, daily range): BP systolic 90–131; BP diastolic 43–64
--- NOTE | 2019-07-29 02:55 | NUR ---
Reassessment completed per ellen, no changes noted from previous assessment. Patient answers appropriately/follows instructions, disorientation to situation noted reorients with stated understanding. S1/S2 noted NSR on telemetry, rythmic and regular. Breathing is shallow on 3L via HFNC with O2 sat 96%, lung sounds clear bilateral upper and mid with diminished lower. All pulses palpable with cap refill < 3 sec, skin warm/dry. Denies pain or other needs at this time, see flowsheet for details. All VSS and will continue to monitor.
[2019-07-29 06:40] LABS: ALBUMIN 2.3 g/dL (3.4-5.0); BILIRUBIN - TOTAL 0.98 mg/dL (0.2-1.3); CALCIUM 8.2 mg/dL (8.5-10.1); CARBON DIOXIDE 29.6 mmol/L (21.0-32.0); CREATININE - SERUM 3.2 mg/dL (0.6-1.3); MAGNESIUM - SERUM 2.1 mg/dL (1.8-2.4); PHOSPHOROUS 3.5 mg/dL (2.5-4.9); POTASSIUM - SERUM 4.6 mmol/L (3.5-5.1); PROTEIN - SERUM 5.9 g/dL (6.4-8.2)
[2019-07-29 06:41] LABS: BASOPHILS 0.3 % (0-2); EOSINOPHILS 3.5 % (0-7); HEMATOCRIT 28.9 % (42.0-54.0); HEMOGLOBIN 9.2 g/dL (13.5-17.5); IMMATURE GRANULOCYTES 0.2 % (0-5); LYMPHOCYTES 9.4 % (15-50); MCH 27.2 pg (26.0-34.0); MCHC 31.8 g/dL (31.0-37.0); MCV 85.5 fL (80.0-100.0); MEAN PLATELET VOLUME 9.7 fL (7.4-10.4); NEUTROPHILS 76.6 % (40-80); PLATELET COUNT 467 10x3/uL (130-400); RBC 3.38 10x6/uL (4.20-6.10); RDW 18.6 % (11.5-14.5)
--- NOTE | 2019-07-29 09:10 | NUR ---
PT INC OF STOOL X 2 THIS AM. BATH AND LINENS CHANGED PRIOR TO BREAKFAST AND AFTER BREAKFAST WELL DUE TO INC OF URINE AND LOOSE STOOL.
--- NOTE | 2019-07-29 13:39 | NUR ---
PT UP IN CHAIR WITH PT.
--- NOTE | 2019-07-29 19:00 | NUR ---
PT ASSESSMENT COMPLETED AT THIS TIME, NO CHANGES FROM NURSE REPORT, PT WAKES TO NAME BUT IS CONFUSED TO TIME, PLACE, AND SITUATION. RESP EVEN AND NON LABORED ATTHIS TIME, VSS, WILL MONITOR FOR CHANGES
--- NOTE | 2019-07-29 21:00 | NUR ---
Patient given p.o. meds at this time no distress noted respirations even nonlabored no acute distress noted vital signs stable we will continue to monitor
--- NOTE | 2019-07-29 23:00 | NUR ---
Patient reassessment complete at this time no changes noted vital signs stable we will continue to monitor for changes
[2019-07-30] VITALS (29 sets, daily range): BP systolic 81–125; BP diastolic 38–78
--- NOTE | 2019-07-30 01:00 | NUR ---
Patient resting with eyes closed respirations even nonlabored BiPAP in place vital signs stable no distress noted we will continue to monitor for changes
--- NOTE | 2019-07-30 03:00 | NUR ---
Patient reassessment completed this time no changes noted no distress noted vital signs stable we will continue to monitor for changes
--- NOTE | 2019-07-30 05:10 | NUR ---
PATIENT GIVEN A HCG THAT THIS MORNING AND AND COMPLETE LINEN PATIENT TOLERATED WELL NO DISTRESS NOTED VITAL SIGNS STABLE
--- NOTE | 2019-07-30 05:10 | NUR ---
Patient given CHG bath this a.m. and completely unchanged patient tolerated well no distress noted vital signs stable
[2019-07-30 06:01] LABS: BASOPHILS 0.1 % (0-2); EOSINOPHILS 2.5 % (0-7); HEMATOCRIT 28.6 % (42.0-54.0); IMMATURE GRANULOCYTES 0.3 % (0-5); MCH 27.3 pg (26.0-34.0); MCHC 31.5 g/dL (31.0-37.0); MCV 86.7 fL (80.0-100.0); MEAN PLATELET VOLUME 9.3 fL (7.4-10.4); MONOCYTES 10.1 % (2-11); PLATELET COUNT 474 10x3/uL (130-400); RDW 18.6 % (11.5-14.5); WBC 10.1 10x3/uL (4.8-10.8)
[2019-07-30 06:20] LABS: CALCIUM 8.5 mg/dL (8.5-10.1); CARBON DIOXIDE 28.3 mmol/L (21.0-32.0); CREATININE - SERUM 3.2 mg/dL (0.6-1.3); POTASSIUM - SERUM 4.3 mmol/L (3.5-5.1)
--- NOTE | 2019-07-30 07:32 | NUR ---
PT TAKES O2 OFF AND SPO2 BEGINS TO DROP TO 88% AFTER A FEW MIN. REPLACED O2 AT 3L AND REDIRECTED TO KEEP O2 ON.
--- NOTE | 2019-07-30 09:12 | NUR ---
DR MARKS HERE ON ROUNDS.
--- NOTE | 2019-07-30 09:30 | NUR ---
PT OOB TO CHAIR WITH PT. CHAIR ALARM ON. CALL LIGHT IN REACH.
--- NOTE | 2019-07-30 10:43 | NUR ---
PT ATTEMPTING TO REPOSITION SELF IN CHAIR CONSTANTLY. C/O BACK PAIN. PO PAIN MED GIVEN. ASSISTED PT WITH REPOSITIONING FOR COMFORT.
--- NOTE | 2019-07-30 12:17 | NUR ---
DR SPARKS HERE ON ROUNDS.
--- NOTE | 2019-07-30 12:58 | NUR ---
PT ASSISTED BACK TO BED BY 2 PERSON ASST. DOES BEAR WT BUT VERY UNSTEADY.
--- NOTE | 2019-07-30 17:25 | NUR ---
PT BACK UP TO CHAIR FOR MEAL.INC OF URINE.
--- NOTE | 2019-07-30 19:00 | NUR ---
SHIFT ASSESSMENT COMPLETE. PT IS A&O X3, CONFUSED TO TIME, REORIENTS EASILY. HE DENIES ANY PAIN OR DISCOMFORT. PERRLA, 3 MM, BRISK REACTION TO LIGHT. 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 EDENTULOUS, MOIST ORAL MUCOSA. RR SHALLOW, NC ON @ 4L/MIN. CLEAR BREATH SOUNDS HEARD BILAT THROUGHOUT ALL LOBES. S1S2 AUDIBLE, HR 85 BPM NSR SHOWING ON MONITOR. ABD SOFT, NONTENDER TO TOUCH, BS ACTIVE X4. PT ABLE TO VOID IN URINAL, 75 ML CONCENTRATED YELLOW URINE. L UPPER ARM PICC INFUSING DOBUTAMINE @ 7.5 MCG/KG/MIN (15.8 ML/HR) AND NS @ 10 ML/HR. GENERALIZED BRUISING NOTED. 1ST STEP AIR OVERLAY MATTRESS, COCCYX REDDENED, REPOSITIONED FOR COMFORT. RUE DEPENDENT EDEMA, TRACE SWELLING ON LOWER EXT. ULTRA SOUND AT BEDSIDE. PT TOLERATING WELL. NO FURTHER FINDINGS AT THIS TIME. SEE FLOWSHEET FOR FURTHER DETAILS. TIGHT PARAMETERS SET ON CVICU MONITORS.
--- NOTE | 2019-07-30 19:10 | NUR ---
IS USE X10, 750 ML PULLED. FLUTTER VALVE USE X10. GOOD EFFORT.
--- NOTE | 2019-07-30 21:00 | NUR ---
PM MEDS TAKEN WITHOUT DIFFICULTY. REPOSITIONED FOR COMFORT. IS USE X10, 500-750 ML PULLED, GOOD EFFORT. FLUTTER VALVE X10. CALL LIGHT IN REACH, REFRESHMENTS AT BEDSIDE. NO FURTHER NEEDS AT THIS TIME. SCDS ON AND FUNCTIONING. WILL CONT WITH POC.
--- NOTE | 2019-07-30 23:00 | NUR ---
REASSESSMENT COMPLETE. PT STATES THAT HE IS HAVING 6/10 LLQ ABD PAIN. PRN PAIN MEDS ADMIN PER REQUEST. INCONTINENT, CONCENTRATED YELLOW URINE NOTED, COMPLETE LINEN CHANGE PROVIDED. STAGE II PRESSURE ULCER ON COCCYX. BARRIER CREAM APPLIED. PT ABLE TO ASSIST WITH TURNING. REPOSITIONED FOR COMFORT. RT AT BEDSIDE. BIPAP ON, 27/03 @ 30%. NO FURTHER CHANGES AT THIS TIME. WILL CONT TO MONITOR CLOSELY.
[2019-07-31] VITALS (25 sets, daily range): BP systolic 77–132; BP diastolic 45–60
--- NOTE | 2019-07-31 01:00 | NUR ---
PT RESTING PEACEFULLY WITH NO SIGNS OF ACUTE DISTRESS NOTED. VSS. CALL LIGHT IN REACH, WILL CONT WITH POC.
--- NOTE | 2019-07-31 03:00 | NUR ---
REASSESSMENT COMPLETE. NO CHANGES FROM PREVIOUS ASSESSMENT. SEE FLOWSHEET FOR FURTHER DETAILS. REPOSITIONED FOR COMFORT. CHANGED DOBUTAMINE TUBING, SWAB CAPS IN PLACE, TUBING LABELED. NO FURTHER FINDINGS AT THIS TIME. VSS. CALL LIGHT IN REACH. WILL CONT TO MONITOR CLOSELY.
--- NOTE | 2019-07-31 05:00 | NUR ---
CHG BATH AND COMPLETE LINEN CHANGE PROVIDED. BIPAP REMOVED, 4 L/MIN VIA NC ON. PT TOLERATED WELL. NO FURTHER NEEDS.
[2019-07-31 06:08] LABS: CREATININE - URINE 82.7 mg/dL (30-125); PRO/CRE RATIO URINE 0.9 mg/g; PROTEIN - URINE 70.5 mg/dL (0.0-11.9)
[2019-07-31 06:13] LABS: ANION GAP 10.2 mmol/L (8-16); CALCIUM 8.1 mg/dL (8.5-10.1); CARBON DIOXIDE 28.4 mmol/L (21.0-32.0); CREATININE - SERUM 3.3 mg/dL (0.6-1.3); POTASSIUM - SERUM 4.6 mmol/L (3.5-5.1)
[2019-07-31 06:14] LABS: BASOPHILS 0.2 % (0-2); EOSINOPHILS 4.1 % (0-7); HEMATOCRIT 27.4 % (42.0-54.0); HEMOGLOBIN 8.6 g/dL (13.5-17.5); IMMATURE GRANULOCYTES 0.3 % (0-5); LYMPHOCYTES 10.1 % (15-50); MCH 27.1 pg (26.0-34.0); MCHC 31.4 g/dL (31.0-37.0); MCV 86.4 fL (80.0-100.0); MEAN PLATELET VOLUME 9.4 fL (7.4-10.4); MONOCYTES 9.4 % (2-11); NEUTROPHILS 75.9 % (40-80); PLATELET COUNT 488 10x3/uL (130-400); RBC 3.17 10x6/uL (4.20-6.10); RDW 18.5 % (11.5-14.5); WBC 8.7 10x3/uL (4.8-10.8)
[2019-07-31 06:33] LABS: PHOSPHOROUS 3.7 mg/dL (2.5-4.9)
[2019-07-31 06:34] LABS: MAGNESIUM - SERUM 1.3 mg/dL (1.8-2.4)
--- NOTE | 2019-07-31 07:30 | NUR ---
UP OOB TO CHAIR. BREAKFAST TRAY SERVED AND MEAL TRAY SET UP. PT FEEDS SELF WITH OUT DIFFICULTY. CHAIR ALARM ON. CALL LIGHT AT BS.
--- NOTE | 2019-07-31 10:10 | NUR ---
DR MARKS HERE ON ROUNDS. TITRATED O2 TO 3LNC. PT ASKING TO GO BACK TO BED. ASSISTED WITH REPOSITIONING WITH COMFORT. ENCOURAGED TO STAY OOB.
--- NOTE | 2019-07-31 12:28 | NUR ---
PT INC OF B&B. CLEANED AND LINENS CHANGED. BACK TO BED. DR BERRY HERE.
--- NOTE | 2019-07-31 14:32 | NUR ---
BIPAP ON. PT AMOR WELL. PT USING URINAL WITH ASST.
--- NOTE | 2019-07-31 21:00 | NUR ---
PT INCONTINENT OF BLADDER AND BOWELS, LOOSE ARCHIBALD/BROWN BM, PARTIAL BATH AND COMPLETE LINEN CHANGE, YELLOW GOWN REPLACED, VSS, REPOSITIONED IN BED FOR COMFORT, WILL CONTINUE TO MONITOR
--- NOTE | 2019-07-31 23:00 | NUR ---
REASSESSMENT COMPLETE PER FLOW SHEET, NO ACUTE CHANGES FROM PRIOR ASSESSMENT, PT PLACED ON NC @ 3L/MIN, SMALL CUP ICE WATER GIVEN PER REQUEST, REPOSITIONED IN BED FOR COMFORT PILLOW PLACED UNDER LEFT SIDE, BLOOD DRAWN FOR MAG RECHECK PER ORDERS AND SENT TO LAB, VSS, NSR ON CM, CALL LIGHT IN REACH, BED ALARM ON, WILL CONTINUE TO MONITOR
--- NOTE | 2019-07-31 23:15 | NUR ---
PLACED PT BACK ON BIPAP @30% FiO2, NO ACUTE S/S OF DISTRESS, VSS
--- NOTE | 2019-07-31 23:50 | NUR ---
CALL LIGHT PRESSED BY PT, STATED FEET ITCH, REMOVED SOCKS ITCHED FEET, CLEANED FEET WITH SOAP AND WATER, REPLACED NON-SLIP SOCKS. PT STATED HE FELT NAUSEATED, PRN ZOFRAN GIVEN PER MAR/, VSS, WILL CONTINUE TO MONITOR
[2019-08-01] VITALS (22 sets, daily range): BP systolic 92–124; BP diastolic 42–77
--- NOTE | 2019-08-01 00:30 | NUR ---
PT PRESSED CALL LIGHT, RN AT BEDSIDE, PT REQUESTED TO BE MOVED UP IN BED AFTER PT REPOSITIONED SELF DOWN IN BED, REPOSITIONED PT UP IN BED, PLACED PILLOW UNDER LEFT SIDE, CALL LIGHT IN REACH, BED ALARM ON, NO FURTHER NEEDS AT THIS TIME, WILL CONTINUE TO MONITOR
--- NOTE | 2019-08-01 01:15 | NUR ---
CALL LIGHT ANSWERED, PT C/O SORE THROAT D/T BIPAP, BIPAP REMOVED PT PLACED ON NC @ 3L/MIN, ICE WATER GIVEN PER REQUEST, PT STATED THROAT FELT BETTER AFTER DRINK, REPOSITIONED PT UP IN BED FOR COMFORT, HOB ELEVATED, PT PLACED BACK ON BIPAP @30% FiO2, DENIES OTHER NEEDS AT THIS TIME, WILL CONTINUE TO MONITOR
--- NOTE | 2019-08-01 02:30 | NUR ---
CALL LIGHT PRESSED, PT REQUESTING BIPAP TAKEN OFF, PLACED PT ON N/C @3L/MIN, VSS, WILL CONTINUE TO MONITOR
--- NOTE | 2019-08-01 02:55 | NUR ---
CALL LIGHT ANSWERED, PT C/O GENERALIZED ACHING PAIN 7/10 ON NUMERIC PAIN SCALE, REPOSITIONED PT UP IN BED FOR COMFORT, PAIN MED GIVEN PER MAR/ORDERS, VSS, WILL CONTINUE TO MONITOR, CALL LIGHT IN REACH
--- NOTE | 2019-08-01 03:00 | NUR ---
REASSESSMENT COMPLETE SEE FLOW SHEET FOR FURTHER, NO ACUTE DISTRESS OR CHANGES NOTED FROM PRIOR ASSESSMENT, PT PLACED ON BIPAP@ 30% FiO2, PT INCONTINENT OF VOID, CHG BATH AND COMPLETE LINEN CHANGE COMPLETED, OGDEN GOWN PLACED ON PT D/T NO YELLOW LINEN, PT TOLLERATED BATH WITH NO S/S OF DISTRESS, REPOSITIONED IN BED FOER COMFORT, HOB AND HEELS ELEVATED, BED ALARM ON, CALL LIGHT IN REACH, VSS, WILL CONTINUE TO MONITOR
[2019-08-01 06:43] LABS: ANION GAP 6.4 mmol/L (8-16); CARBON DIOXIDE 31.3 mmol/L (21.0-32.0); CREATININE - SERUM 3.3 mg/dL (0.6-1.3); MAGNESIUM - SERUM 2.3 mg/dL (1.8-2.4); PHOSPHOROUS 3.2 mg/dL (2.5-4.9); POTASSIUM - SERUM 4.7 mmol/L (3.5-5.1)
[2019-08-01 06:54] LABS: BASOPHILS 0.2 % (0-2); EOSINOPHILS 4.1 % (0-7); HEMATOCRIT 26.4 % (42.0-54.0); HEMOGLOBIN 8.3 g/dL (13.5-17.5); IMMATURE GRANULOCYTES 0.3 % (0-5); LYMPHOCYTES 8.9 % (15-50); MCH 27.1 pg (26.0-34.0); MCHC 31.4 g/dL (31.0-37.0); MCV 86.3 fL (80.0-100.0); MEAN PLATELET VOLUME 9.3 fL (7.4-10.4); NEUTROPHILS 76.5 % (40-80); PLATELET COUNT 500 10x3/uL (130-400); RBC 3.06 10x6/uL (4.20-6.10); RDW 18.7 % (11.5-14.5); WBC 8.6 10x3/uL (4.8-10.8)
--- NOTE | 2019-08-01 07:15 | NUR ---
PT RESTING IN BED, VSS AND WNL. CALL LIGHT WITHIN REACH. WILL CONT TO FOLLOW POC
--- NOTE | 2019-08-01 08:54 | NUR ---
PT SITTING UP IN HIS CHAIR. SHIFT ASSESSMENT PERFORMED. VSS AND WNL. DENIES ANY NEEDS AT THIS TIME, CALL LIGHT WITHIN REACH. WILL CONT TO FOLLOW POC
--- NOTE | 2019-08-01 08:55 | NUR ---
PT UP WALKING AROUND HIS ROOM. NONSKID SOCKS AND GILSON HOSE IN PLACE. DENIES ANY NEEDS AT THIS TIME. WILL CONT TO FOLLOW POC
--- NOTE | 2019-08-01 08:57 | NUR ---
PT RESTING IN BED. VSS AND WNL. BIPAP REMOVED AND PT PLACED ON 3L NC. SHIFT ASSESSMENT PERFORMED. CALL LIGHT AND URINAL WITHIN REACH. BED ALARM ON AND TESTED. DENIES ANY FURTHER NEEDS AT THIS TIME, WILL CONT TO FOLLOW POC
--- NOTE | 2019-08-01 09:25 | NUR ---
PHYSICAL THERAPY HERE AND WALKED WITH PT IN THE [place]. PT PLACED INTO CHAIR AT BEDSIDE WITH CHAIR ALARM ON. CALL LIGHT WITHIN REACH, DENIES ANY NEEDS AT THIS TIME, VSS AND WNL, WILL CONT TO FOLLOW POC
--- NOTE | 2019-08-01 11:23 | NUR ---
PT SITTING UP IN CHAIR AT BEDSIDE. VSS AND WNL. CALL LIGHT WITHIN REACH. CHAIR ALARM ON AND TESTED. DENIES ANY NEEDS AT THIS TIME, WILL CONT TO FOLLOW POC
--- NOTE | 2019-08-01 11:40 | MORECARE ---
CASE MANAGEMENT DISCHARGE SUMMARY PATIENT: TERRY BOWLING UNIT: [id number] ADM DATE: 07/11/19 AGE: 78 : 44 SEX: M ROOM/BED: D.01 AUTHOR: ELEAZAR,DOC PHYSICIAN: REFERRING PHYSICIAN: SAVANA GONZALES DO DATE OF SERVICE: 08/01/19 Discharge Plan Patient Name: TERRY BOWLING Facility: [facility]:[place] : 1940 Planned Disposition: Home with Home Health Anticipated Discharge Date: Discharge Date: Expected LOS: Initial Reviewer: [email or web address] Initial Review Date: 07/13/2019 Generated: 08/01/19 12:39 pm DCP- Discharge Planning Updated by [email or web address]: Destinee Dunn on 08/01/19 10:[address] CM attempted to contact daughter Leonora Bowling [phone]. CM received a message number is not reachable. CM relayed message to nursing if daughter calls ask her to call CM. CM will continue to follow and assist as needed with discharge planning / needs. DCP- Discharge Planning Updated by [email or web address]: Martínez Ordonez on 07/13/19 4:[address] Patient Name: TERRY BOWLING Admission Status: ER Accout number: [id number] Admission Date: 07-11-2019 : 1940 Admission Diagnosis: Attending: SAVANA GONZALES Current LOS: 2 Anticipated DC Date: Planned Disposition: Home with Home Health Primary Insurance: [employer] CHOICE PPO [facility] PLANNED EXTERNAL PROVIDER: [facility] Discharge Planning Comments: CM RECEIVED ORDER TO CONSULT WITH PT REGARDING DISCHARGE NEEDS. CM MET WITH PT IN ROOM TO DISCUSS DISCHARGE PLANNING AND NEEDS. PT REPORTS LIVING AT HOME INDEPENDENTLY AND ALONE. PT HAS CANE AND WALKER WITH NO MEDICAL EQUIPMENT PROVIDER PREFERENCE. PT HAD [facility] BUT IT HAD ALREADY STOPPED; PT HAS NO OUTSIDE SERVICES ASSISTING IN THE HOME. CM DISCUSSED AVAILABILITY OF HOME HEALTH, REHAB SERVICES AND MEDICAL EQUIPMENT. PT DENIES NEED OF INPATIENT OR SKILLED REHAB. PT WANTS HOME HEALTH WITH [facility]; PT STATES HIS DAUGHTER WILL BE COOKING AND CLEANING FOR HIM AFTER DISCHARGE, BUT HE WILL STILL BE LIVING ALONE. PT REPORTS HIS DAUGHTER WILL PICK HIM UP FOR DISCHARGE HOME. IMPORTANT MESSAGE FROM MEDICARE PROVIDED AND EXPLAINED. CHOICE FOR [facility] SIGNED. CM TO ARRANGE [facility] FOR DISCHARGE HOME WITH PHYSICIAN AGREEMENT AND ORDERS. PCP IS DR. LAFLEUR. CM TO CONTINUE TO FOLLOW AND ASSIST NEEDED. Press Setter: Martínez Esquedawell DCPIA - Discharge Planning Initial Assessment Updated by [email or web address]: Martínez Ordonez on 07/13/19 4:52 pm * Is the patient Alert and Oriented? Yes * How many steps to enter\exit or inside your home? NONE * PCP DR. LAFLEUR * Pharmacy [facility] - [facility] * Preadmission Environment Home Alone * ADLs Independent * Equipment Cane Rolling Walker * Other Equipment NO MEDICAL EQUIPMENT PROVIDER PREFERENCE * List name and contact numbers for known caregivers / representatives who currently or will assist patient after discharge: CARLOS BOWLING Jamie, * Verbal permission to speak to the caregivers and representatives has been obtained from the patient. N/A * Community resources currently utilized None * Please name any agencies selected above. NONE * Additional services required to return to the preadmission environment? No * Can the patient safely return to the preadmission environment? Yes * Has this patient been hospitalized within the prior 30 days at any hospital? No Coverage Notice Reviewer: [email or web address] Ordonez Notice Issued Date-Time: 07/13/2019 16:40 Notice Type: IM Discharge Notice Notice Delivered To: Patient Relationship to Patient: Timekeeper Name: Delivery Method: HAND - Hand Delivered Nela Days: Prior Verbal Notification: Recipient Understood Notice: Yes Recipient Signature: Yes Med Rec Note Co-signed by Attending: Coverage Notice Comment: Reviewer: [email or web address] Gi Ordonez Notice Issued Date-Time: 07/13/2019 16:40 Notice Type: Patient Choice Letter Notice Delivered To: Patient Relationship to Patient: Timekeeper Name: Delivery Method: HAND - Hand Delivered Nela Days: Prior Verbal Notification: Recipient Understood Notice: Yes Recipient Signature: Yes Med Rec Note Co-signed by Attending: Coverage Notice Comment: [facility] Last DP export: 07/13/19 5:04 Patient Name: TERRY BOWLING Page [id number] at 1140 All edits/amendments must be made on the electronic document DICTATION DATE: 08/01/19 113 INFORMATICS DEVELOPER: SHERIN 08/01/19 113 RPT#: [id number] DC DATE: STATUS: ADM IN [facility] [address] [place] [address] END OF REPORT
--- NOTE | 2019-08-01 12:07 | NUR ---
ASSISTED PT BACK INTO BED, CALL LIGHT WITHIN REACH, VSS AND WNL, DENIES ANY NEEDS AT THIS TIME. WILL CONT TO FOLLOW POC
--- NOTE | 2019-08-01 12:27 | NUR ---
HERE AND GAVE ORDERS TO DECREASE DOBUTAMINE GTT TO 5MCG/KG/HR. STATES HE IS OK WITH PT TRANFERRING TO THE FLOOR.
--- NOTE | 2019-08-01 13:19 | NUR ---
Nutrition Follow-up: RN reports pt not eating but drinking some Ensure. Diet: Regular, Mechanical Soft, Ensure TID PO intake: 30% avg x 6 meals Wt: 147.7# Last BM: 08/01 Labs noted: K+ 4.7, PO4 3.2, Ca 8.0 Meds noted: Megace, Albumin -Pt may require alternate nutrition 2/2 poor PO intake. -RD following.
--- NOTE | 2019-08-01 14:16 | NUR ---
Rehab Prescreening Consult recieved and the chart has been reviewed. He is [employer] managed Medicare and will require a preauth. Information will be sent to them for their review. Discussed with the NARENDRA Moreno. Zoë Flores RN Clinical Liaison, Rehab
--- NOTE | 2019-08-01 15:03 | NUR ---
RESP THERAPY HERE AND PLACED PT ON BIPAP ORDERED. VSS AND WNL, PT RESTING IN BED. CALL LIGHT WITHIN REACH. DENIES ANY NEEDS AT THIS TIME, BED ALARM ON AND TESTED. WILL CONT TO FOLLOW POC
--- NOTE | 2019-08-01 16:32 | MORECARE ---
CASE MANAGEMENT DISCHARGE SUMMARY PATIENT: TERRY BOWLING UNIT: [id number] ADM DATE: 07/11/19 AGE: 78 : 44 SEX: M ROOM/BED: D.[facility] AUTHOR: XIN BUSH PHYSICIAN: REFERRING PHYSICIAN: SAVANA GONZALES DO DATE OF SERVICE: 08/01/19 Discharge Plan Patient Name: TERRY BOWLING Facility: [facility]:[place] : 1940 Planned Disposition: Home with Home Health Anticipated Discharge Date: Discharge Date: Expected LOS: Initial Reviewer: [email or web address] Initial Review Date: 07/13/2019 Generated: 08/01/19 5:32 pm Comments DCP- Discharge Planning Updated by [email or web address]: Destinee Dunn on 08/01/19 3:[address] CM spoke with daughter Leonora and daughter Geovanna regarding patient and discharge planning. CM explained that patient at this point will not be able to discharge home alone even with Home Health d/t it not being a safe discharge. CM explained that the MD had placed an order for rehab prescreen and once patient is stable and if insurance approves inpatient rehab then he could possibly go there. Both daughters agree to this plan. CM also explained that if insurance doesn't authorize inpatient rehab then then they will most likely suggest [facility] for rehab. Both daughters state that he will never agree to that. CM received an updated number Leonora [phone] until Thursday when she can get her phone reactivated. Geovanna [phone]. CM updated daughter' s that patient will most likely transfer out to floor once a bed is available. CM will continue to follow and assist as needed with discharge planning needs. DCP- Discharge Planning Updated by [id number]: Destinee Dunn on 08/01/19 10:[address] CM attempted to contact daughter Leonora Bowling [phone]. CM received a message number is not reachable. CM relayed message to nursing if daughter calls ask her to call CM. CM will continue to follow and assist as needed with discharge planning / needs. DCP- Discharge Planning Updated by [id number]: Martínez Ordonez on 07/13/19 4:[address] Patient Name: TERRY BOWLING Admission Status: ER Accout number: [id number] Admission Date: 07-11-2019 : 1940 Admission Diagnosis: Attending: SAVANA GONZALES Current LOS: 2 Anticipated DC Date: Planned Disposition: Home with Home Health Primary Insurance: [employer] PLANNED EXTERNAL PROVIDER: [facility] Discharge Planning Comments: CM RECEIVED ORDER TO CONSULT WITH PT REGARDING DISCHARGE NEEDS. CM MET WITH PT IN ROOM TO DISCUSS DISCHARGE PLANNING AND NEEDS. PT REPORTS LIVING AT HOME INDEPENDENTLY AND ALONE. PT HAS CANE AND WALKER WITH NO MEDICAL EQUIPMENT PROVIDER PREFERENCE. PT HAD [facility] BUT IT HAD ALREADY STOPPED; PT HAS NO OUTSIDE SERVICES ASSISTING IN THE HOME. CM DISCUSSED AVAILABILITY OF HOME HEALTH, REHAB SERVICES AND MEDICAL EQUIPMENT. PT DENIES NEED OF INPATIENT OR SKILLED REHAB. PT WANTS HOME HEALTH WITH [facility]; PT STATES HIS DAUGHTER WILL BE COOKING AND CLEANING FOR HIM AFTER DISCHARGE, BUT HE WILL STILL BE LIVING ALONE. PT REPORTS HIS DAUGHTER WILL PICK HIM UP FOR DISCHARGE HOME. IMPORTANT MESSAGE FROM MEDICARE PROVIDED AND EXPLAINED. CHOICE FOR [facility] SIGNED. CM TO ARRANGE [facility] FOR DISCHARGE HOME WITH PHYSICIAN AGREEMENT AND ORDERS. PCP IS DR. LAFLEUR. CM TO CONTINUE TO FOLLOW AND ASSIST NEEDED. Gleason Gear Generator: Martínez Ordonez [facility] - Discharge Planning Initial Assessment Updated by [id number]: Martínez Ordonez on 07/13/19 4:52 pm * Is the patient Alert and Oriented? Yes * How many steps to enter\exit or inside your home? NONE * PCP DR. LAFLEUR * Pharmacy [facility] * Preadmission Environment Home Alone * ADLs Independent * Equipment Cane Rolling Walker * Other Equipment NO MEDICAL EQUIPMENT PROVIDER PREFERENCE * List name and contact numbers for known caregivers / representatives who currently or will assist patient after discharge: GEOVANNA BOWLING, JASWINDER, * Verbal permission to speak to the caregivers and representatives has been obtained from the patient. N/A * Community resources currently utilized None * Please name any agencies selected above. NONE * Additional services required to return to the preadmission environment? No * Can the patient safely return to the preadmission environment? Yes * Has this patient been hospitalized within the prior 30 days at any hospital? No Coverage Notice Reviewer: [id number] Ordonez Notice Issued Date-Time: 07/13/2019 16:40 Notice Type: IM Discharge Notice Notice Delivered To: Patient Relationship to Patient: Furniture Sales Consultant Name: Delivery Method: HAND - Hand Delivered Nela Days: Prior Verbal Notification: Recipient Understood Notice: Yes Recipient Signature: Yes Med Rec Note Co-signed by Attending: Coverage Notice Comment: Reviewer: [id number] Ordonez Notice Issued Date-Time: 07/13/2019 16:40 Notice Type: Patient Choice Letter Notice Delivered To: Patient Relationship to Patient: Furniture Sales Consultant Name: Delivery Method: HAND - Hand Delivered Nela Days: Prior Verbal Notification: Recipient Understood Notice: Yes Recipient Signature: Yes Med Rec Note Co-signed by Attending: Coverage Notice Comment: [facility] Last DP export: 08/01/19 10:40 Patient Name: TERRY BOWLING Page [id number] at 1632 All edits/amendments must be made on the electronic document DICTATION DATE: 08/01/19 163 CHIEF OF VITAL STATISTICS: SHERIN 08/01/19 1632 RPT#: [id number] DC DATE: STATUS: ADM IN [facility] [address] [place] [address] END OF REPORT
--- NOTE | 2019-08-01 17:22 | NUR ---
CHG BATH AND FULL LINEN CHANGE PROVIDED. VSS AND WNL. CALL LIGHT WITHIN REACH. DENIES ANY NEEDS AT THIS TIME. BED ALARM ON AND TESTED. WILL CONT TO FOLLOW POC
--- NOTE | 2019-08-01 18:29 | NUR ---
PT RESTING IN BED WITH BIPAP ON. VSS AND WNL. CALL LIGHT WITHIN REACH. BED ALARM ON. DENIES ANY NEEDS AT THIS TIME, WILL CONT TO FOLLOW POC
--- NOTE | 2019-08-01 19:00 | NUR ---
PT REPORT RECEIVED FROM DAY SHIFT NURSE. SHIFT ASSESSMENT COMPLETED AT THIS TIME. PT CURRENTLY ON BIPAP. HAS ORDERS FOR TRANSFER. VSS. WILL CONTINUE TO MONITOR
--- NOTE | 2019-08-01 21:00 | NUR ---
PT GIVEN PM MEDS. TOLERATED TAKING BIPAP OFF FOR 10 MINUTES BEFORE DESATTING. PT PLACED BACK ON BIPAP. OXYGEN LEVEL REBOUNDED BACK TO NORMAL LEVEL. VSS. WILL CONTINUE TO MONITOR
--- NOTE | 2019-08-01 23:00 | NUR ---
PT RESTING IN BED. BIPAP STILL IN USE. PT TOLERATING WELL. NO VISIBLE SIGNS OF DISTRESS NOTED. VSS. WILL CONTINUE TO MONITOR
[2019-08-02] VITALS (21 sets, daily range): BP systolic 96–132; BP diastolic 39–78
--- NOTE | 2019-08-02 01:00 | NUR ---
PT RESTING IN BED. NO COMPLAINTS NOTED AT THIS TIME. VSS. WILL CONTINUE TO MONITOR
--- NOTE | 2019-08-02 03:00 | NUR ---
PT RESTING IN BED. NO VISIBLE SIGNS OF DISTRESS NOTED. VSS. WILL CONTINUE TO MONITOR
--- NOTE | 2019-08-02 05:00 | NUR ---
PT RESTING IN BED. NO VISIUAL SIGNS OF DISTRESS NOTED. PT ON BIPAP. AM LABS DRAWN. PT TOLERATED WELL. WILL CONTINUE TO MONITOR
[2019-08-02 05:13] LABS: BASOPHILS 0.2 % (0-2); EOSINOPHILS 3.6 % (0-7); HEMATOCRIT 27.4 % (42.0-54.0); HEMOGLOBIN 8.4 g/dL (13.5-17.5); IMMATURE GRANULOCYTES 0.3 % (0-5); LYMPHOCYTES 8.6 % (15-50); MCH 26.7 pg (26.0-34.0); MCHC 30.7 g/dL (31.0-37.0); MEAN PLATELET VOLUME 9.2 fL (7.4-10.4); MONOCYTES 8.6 % (2-11); NEUTROPHILS 78.7 % (40-80); PLATELET COUNT 521 10x3/uL (130-400); RBC 3.15 10x6/uL (4.20-6.10); RDW 18.6 % (11.5-14.5); WBC 9.1 10x3/uL (4.8-10.8)
[2019-08-02 05:48] LABS: ANION GAP 9.7 mmol/L (8-16); CALCIUM 8.2 mg/dL (8.5-10.1); CREATININE - SERUM 3.3 mg/dL (0.6-1.3); POTASSIUM - SERUM 4.7 mmol/L (3.5-5.1)
--- NOTE | 2019-08-02 08:56 | NUR ---
0700 PT RECIEVED ALERT AND ORIENTED ON BIPAP L PICC DRESSING CDI SEE IV FLOWSHEET, SEE SHIFT ASSESSMENT FOR DETAILS 0800 PLACED ON NC, BREAKFAST SERVED, PT REFUSED 0845 PT AMBULATING WITH THERAPY
--- NOTE | 2019-08-02 11:42 | NUR ---
PT CONTINUALLY SLIDING SELF DOWN IN CHAIR, REPOSITIONED EVERY 20 MINUTES, 1130 ASSISTED BACK TO BED BY THERAPY.
--- NOTE | 2019-08-02 15:04 | NUR ---
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 There is shearing noted on left buttock. Pt squirms and slides down in chair and/or bed whenever he is assisted with positioning/repositioning. He has a very poor appetite and protein supplements are encouraged. He is on an air overlay mattress in bed and has an eggcrate in his chair. Mepilex sacral dressings are being used for skin protection, but are frequently having to be replaced due to rolling up/dislodging from the constant scooting around in the bed and chair. Wound care continues to monitor.
--- NOTE | 2019-08-02 17:53 | NUR ---
OT NOTE: ASSISTED PT WITH BED MOB INCLUDING SUPINE TO SIT WITH MIN ASSIST; AMB WITH ASSIST OF PT WITH USE OF WALKER, 02, IV, AND SOMEONE TO FOLLOW WITH CHAIR. PT ABLE TO AMB 80 FT, HOWEVER, SATS DROPPED TO 79% AND PT HAD TO BE PLACED BACK ON BIPAP. ATTTEMPTED REPOSITIONING PT NUMEROUS TIMES BUT CONT TO WIGGLE FORWARD IN CHAIR. SIMPLE GROOMING TASKS WITH WASHCLOTH AND SET UP CARLOS DUGGAN OTR/L
--- NOTE | 2019-08-02 18:14 | NUR ---
1230 PT REFUSED LUNCH TRAY AND DRANK ENSURE FOR LUNCH 1500 BED BATH DONE 1700 DINNER TRAY BROUGHT TO ROOM BY ANOTHER NURSE 1715 CALLED TO ROOM BY BEULAH, PT HAD DINNER TRAY ON BEDSIDE TABLE OVER BED AND HAD FALLED OUT OF BED BETWEEN BED AND TABLE, ASSESSED AND ASSISTED UP TO BED, DENIES PAIN AND ALL NEEDS, STATES HE WAS JUST MOVING. DR FERMIN NOTIFIED, POSTAL INSPECTOR NOTIFIED, CHARGE NURSE AND LOT BOSS NOTIFIED. PTS BED ALARM WAS ON BUT NOT ALARMING DUE TO AIR OVERLAY, CALL LIGHT WAS WITHIN REACH AND OFF.PT MOVED FROM CV1 TO CV8 1800 PT CONTINUES TO DENY PAIN
--- NOTE | 2019-08-02 19:03 | NUR ---
NO CHANGES NOTED, SPOKE WITH LADLE REPAIRMAN, STATED TO DO NEURO CHECKS Q4 WITH ASSESSMENTS
--- NOTE | 2019-08-02 19:42 | NUR ---
OT NOTE: PT REQUIRED MIN A/CGA FOR ADL MOB WITH RW. PT COMPLETED UB HYGIENE TASKS WITH MIN A. THANK YOU, CIOR SNOW
[2019-08-03] VITALS (7 sets, daily range): BP systolic 108–147; BP diastolic 55–73
[2019-08-03 06:26] LABS: BASOPHILS 0.2 % (0-2); EOSINOPHILS 2.2 % (0-7); HEMATOCRIT 30.3 % (42.0-54.0); HEMOGLOBIN 9.3 g/dL (13.5-17.5); IMMATURE GRANULOCYTES 0.3 % (0-5); LYMPHOCYTES 7.3 % (15-50); MCH 26.6 pg (26.0-34.0); MCHC 30.7 g/dL (31.0-37.0); MCV 86.8 fL (80.0-100.0); MEAN PLATELET VOLUME 9.1 fL (7.4-10.4); MONOCYTES 9.3 % (2-11); NEUTROPHILS 80.7 % (40-80); PLATELET COUNT 536 10x3/uL (130-400); RBC 3.49 10x6/uL (4.20-6.10); RDW 18.8 % (11.5-14.5); WBC 10.8 10x3/uL (4.8-10.8)
[2019-08-03 06:53] LABS: ANION GAP 7.7 mmol/L (8-16); CALCIUM 8.4 mg/dL (8.5-10.1); CARBON DIOXIDE 28.1 mmol/L (21.0-32.0); MAGNESIUM - SERUM 2.6 mg/dL (1.8-2.4); PHOSPHOROUS 3.4 mg/dL (2.5-4.9); POTASSIUM - SERUM 4.8 mmol/L (3.5-5.1)
--- NOTE | 2019-08-03 10:24 | NUR ---
0700 PT RECIEVED ALERT AND ORIENTED VSS ON BIPAP, DENIES PAIN, L PICC DRESSING CDI, CALL LIGHT WITHIN REACH 0800 PLACED ON 3L NC, TOLERATING WELL, DRESSING APPLIED TO BRIDGE OF NOSE WHERE REDNESS FROM BIPAP NOTED 0900 HAD ENSURE FOR BREAKFAST 1020 PLACED ON BIPAP FOR SOB AFTER COUGHING
--- NOTE | 2019-08-03 11:11 | NUR ---
Nutrition Follow-up: Pt continues with poor PO intake. Reports drinking some Ensure this AM. Noted pt refused breakfast and lunch yesterday. Per chart, stage 2 on sacrum is unchanged. Discussed alternate nutrition with Dr. Emanuel; Procalamine to be started. Diet: Regular, Mechanical Soft, Ensure TID Wt: 137# (wt on 08/01 was 147.7#; 10.7# loss) Last BM: 08/01 per chart Labs reviewed Meds noted: Bumex, Megace -Continue current diet as tolerated. -Encourage PO intake. -Procalamine to be started per MD. -Will monitor PO intake, skin integrity, and wt trends. -RD following.
--- NOTE | 2019-08-03 11:19 | NUR ---
ASSISTED UP TO CHAIR BY PT
--- NOTE | 2019-08-03 15:19 | NUR ---
PT REPOSITIONED THROUGHOUT DAY, CONTINUALLY MOVES LEGS AND SLIDES IN BED/CHAIR, DISCUSSED KEEPING LEGS STILL TO PREVENT SLIDING AND PT STATES UNDERSTANDING BUT CONTINUES TO DO SO. REPOSITIONED WITH PILLOWS AND PT MOVES PILLOWS AND REPOSITIONS HIMSELF OFF OF THEM. PT REQUESTING RADIO, HOSPITAL DOES NOT HAVE ANY SO DAUGHTERS WILL BE BRINGING. PT SPENT MAJORITY OF DAY OFF OF BIPAP AND ON 3L NC AND HAS TOLERATED WELL.
--- NOTE | 2019-08-03 15:29 | NUR ---
OT NOTE: PT INITIALLY IN BED. ASSISTED PT TO EOB IWTH MIN ASSIST. STATIC SITTING ON EOB X 8 MIN WITH FAIR+ BALANCE. PERFORMED LE EXS WHILE SITTING UP. PROVIDED PT WITH WARM WASHCLOTH AND HE WAS ABLE TO WASH FACE, HANDS, NECK AND CHEST. TRANSFER FROM BED TO CHAIR WITH MIN ASSIST. APPLIED DYCEM UNDER CUSHION OF CHAIR TO PREVENT HIM FROM SLIDING OUT OF CHAIR, HOWEVER, AFTER ONLY ABOUT AN HOUR, PT WAS PLACED BACK IN BED DUE TO DISCOMFORT IN CHAIR. CARLOS DUGGAN, OTR/L
--- NOTE | 2019-08-03 16:02 | NUR ---
REPORT GIVVEN TO Flakita LEYVA RN
--- NOTE | 2019-08-03 17:40 | NUR ---
DAUGHTERS CAME TO SEE PATIENT. BROUGHT HIM [place] FRIED CHICK[place]. PT ATE A FEW BITES. DESATED INTO MID 80S. PLACED ON BIPAP TO RECOVER. DAUGHTERS WOULD LIKE TO HAVE A DR. CALL THEM TOMORROW WHEN THEY DO ROUNDS. LUDWIG PICC LINE DRESSING CHANGED PER PROTOCOL. STERILE TECHNIQUE USED. PULLED UP AND REPOSITIONED FOR COMFORT. PARTIAL LINEN CHANGE PROVIDED. NO FURTHER NEEDS AT THIS TIME. WILL CONTINUE TO MONITOR.
--- NOTE | 2019-08-03 17:47 | NUR ---
CALL LIGHT ANSWERED. PULLED UP IN BED. WILL CONTINUE TO MONITOR.
--- NOTE | 2019-08-03 18:37 | NUR ---
CALL LIGHT ANSWERED. PT ASKED TO HAVE A BREAK FROM BIPAP. O2 SAT 100% ON BIPAP. PLACED ON 3L OF O2 VIA NC. WILL CONTINUE TO MONITOR.
--- NOTE | 2019-08-03 18:59 | NUR ---
INCONTINENT EPISODE OF URINE AT THIS TIME. PERICARE PROVIDED. COMPLETE LINEN CHANGE PROVIDED. PULLED UP AND REPOSITIONED FOR COMFORT.
--- NOTE | 2019-08-03 19:41 | NUR ---
ASSESSMENT COMPLETE. AAOX4. PERRLA. VSS. CRACKLES AUSCULTATED BLL. BIPAP PLACED AT THIS TIME. TOLERATING WELL. INCONTINENT TO URINE AND BOWEL. BED ALARM ON AND CHECKED D/T PREVIOUS FALL. DENIES ANY NEEDS AT THIS TIME. VSS. SAFETY MEASURES IN PLACE. CBIR.
--- NOTE | 2019-08-03 21:50 | NUR ---
HS MEDS GIVEN. TOLERATED WELL. PT ANXIOUS AND RESTLESS. ORIENTED X4. DENIES ANY NEEDS. BIPAP ON. REPLACED BANDAGE ON BRIDGE OF NOSE.
--- NOTE | 2019-08-03 22:37 | NUR ---
PT ANXIOUS AND RESTLESS. ATTEMPTED TO GIVE BREAK FROM BIPAP, PT DID NOT TOLERATE WELL. RR INCREASED, O2 DROPPED. BIPAP REPLACED. PT BEGAN PULLING AT BIPAP MASK FRANTICALLY. UNABLE TO CALM AND REORIENT AT THIS TIME. DR. CLARE TURPIN. NURSE REMAINS AT BEDSIDE.
--- NOTE | 2019-08-03 22:40 | NUR ---
DR. SPARKS RETURNED PAGE. PRN ORDER RECEIVED, VERIFIED, AND READ BACK. SEE MAR FOR DETAILS.
--- NOTE | 2019-08-03 23:12 | NUR ---
NURSE UNABLE TO LEAVE BEDSIDE. PT ATTEMPTING TO CLIMB OUT OF BED, PULL OF BIPAP MASK. EASILY ORIENTED. PRN MED GIVEN. SEE MAR FOR DETAILS. NURSE REMAINS AT BEDSIDE TO MAINTAIN PT SAFETY. BED ALARM ON, CHECKED.
[2019-08-04] VITALS (23 sets, daily range): BP systolic 90–159; BP diastolic 48–133
--- NOTE | 2019-08-04 01:30 | NUR ---
PT BROKE BIPAP MASK OFF OF FACE, CONTINUES TO CLIMB OUT OF BED. ANXIOUS AND PULLING AT EKG LEADS. BIPAP MASK REPAIRED BY RT. DR. CLARE TURPIN.
--- NOTE | 2019-08-04 01:33 | NUR ---
DR. SPARKS RETURNED PHONE CALL. PRN MEDICATION ORDERED, RESTRAINTS ORDERED. SEE MAR FOR DETAILS. LANGUAGE INSTRUCTOR NOTIFIED.
--- NOTE | 2019-08-04 01:49 | NUR ---
PRN MED GIVEN. SEE MAR FOR FULL DETAILS.
--- NOTE | 2019-08-04 02:36 | NUR ---
REASSESSMENT COMPLETE. PT CONTINUES ATTEMPTS TO CLIMB OUT OF BED. RE-DIRECTING PT WITHOUT POSITIVE RESULTS. CONFUSED AND ANXIOUS. COMPLETE BED BATH GIVEN. LINENS CHANGED. TOLERATED WELL. BED ALARM ON. REPOSITIONED FOR COMFORT. SIP OF WATER OFFERED. SAFETY MEASURES IN PLACE. CBIR.
--- NOTE | 2019-08-04 03:47 | NUR ---
PT LAYING IN BED RESTING EASY WITH EYES CLOSED. CURRENTLY NOT ATTEMPTING TO CLIMB OUT OF BED AND PULL AT MEDICAL EQUIPMENT. POSTPONED CXR UNTIL PT WAKES.
[2019-08-04 05:19] LABS: BASOPHILS 0.2 % (0-2); EOSINOPHILS 1.3 % (0-7); HEMATOCRIT 28.9 % (42.0-54.0); IMMATURE GRANULOCYTES 0.2 % (0-5); LYMPHOCYTES 6.1 % (15-50); MCH 26.7 pg (26.0-34.0); MCHC 31.1 g/dL (31.0-37.0); MCV 85.8 fL (80.0-100.0); MEAN PLATELET VOLUME 8.9 fL (7.4-10.4); NEUTROPHILS 85.2 % (40-80); PLATELET COUNT 539 10x3/uL (130-400); RBC 3.37 10x6/uL (4.20-6.10); RDW 18.6 % (11.5-14.5)
[2019-08-04 05:35] LABS: ANION GAP 7.2 mmol/L (8-16); CALCIUM 8.2 mg/dL (8.5-10.1); CARBON DIOXIDE 31.3 mmol/L (21.0-32.0); CREATININE - SERUM 3.1 mg/dL (0.6-1.3); POTASSIUM - SERUM 4.5 mmol/L (3.5-5.1)
--- NOTE | 2019-08-04 09:44 | NUR ---
0700 PT RECIEVED ALERT, CONFUSED TO TIME AND SITUATION, BELIEVES IT IS OCTOBER 14, DENIES PAIN, VSS, ON BIPAP, PICC DRESSING CDI, SEE SHIFT ASSESSMENT FOR DETAILS 0900 TOOK BIPAP OFF FOR MEDS, TOLERATED WELL AND DRANK ENSURE, WORK OF BREATHING SLOWLY INCREASED AND PLACED BACK ON BIPAP THOUGH SPO2 REMAINED OVER 93%
--- NOTE | 2019-08-04 10:38 | NUR ---
DAUGHTERS IN UNIT, SPEAKING WITH DR FERMIN
--- NOTE | 2019-08-04 11:21 | NUR ---
PT DAUGHTERS WANT TO CONTINUE CURRENT POC AND FULL CODE STATUS, STATE THEY ARE AWARE PT IS DYING BUT THEY ARE NOT READY TO PLAN FOR THAT. DR FERMIN SPOKE WITH FAMILY IN GREAT LENGTH AND IS AWARE OF FAMILYS DECISION
--- NOTE | 2019-08-04 15:07 | NUR ---
PTS DAUGHTERS SPOKE WITH DR PIERCE AND DR SPARKS, WHEN GETTING READY TO LEAVE THEY MENTIONED THAT THEY WERE OK WITH NO HEROIC MEASURES, ASKED PROCESS SERVER RN KWAME VELAZQUEZ TO COME OVER AND WITNESS CONVERSATION, BOTH PTS DAUGHTERS STATED THEY DID NOT WANT MEDS, INTUBATION/VENTILATOR OR COMPRESSIONS IF PT WERE TO REQUIRE THEM, CALLED DR FERMIN AND RECIEVED DNR ORDER
--- NOTE | 2019-08-04 16:36 | NUR ---
PT GRABBING LINES AND BIPAP, ATTEMPTING TO PULL EVERYTHING, DR FERMIN IN UNIT ORDERS FOR [facility] RECIEVED, AWAITING FROM PHARMACY, SPOKE WITH GEMMA
--- NOTE | 2019-08-04 19:15 | NUR ---
PT RECEIVED WITH EYES OPEN. ON BIPAP. PT SLIDE DOWN IN BED AND PULLED UP WITH ASSIST OF OFF GOING NURSE. WILL CONTINUE TO OBSERVE. CALL LIGHT IN REACH.
--- NOTE | 2019-08-04 21:55 | NUR ---
PT PULLED UP IN BED. BIPAP MASK DOWN ON FACE AND PLACED IN CORRECT POSITION. RECEIVED MEDICATIONS PER MAR, TOLERATED WELL. WILL CONTINUE TO OBSERVE
--- NOTE | 2019-08-04 23:27 | NUR ---
PT CONSTANTLY SLIDING DOWN IN BED AND ATTEMPTING TO GET LEGS OUT OF BED. PT INCONTINENT OF BLADDER WITH LINENS CHANGED AND PERICARE PROVIDED. PT WITH CONDOM CATHETER BUT WITH PT CONSTANT MOVING CATHETER COMES OFF. CATHETER OFF AT THIS TIME. PT PULLED UP IN BED. PT ON BIPAP. WILL CONTINUE TO OBSERVE.
[2019-08-05] VITALS (24 sets, daily range): BP systolic 97–140; BP diastolic 40–97
--- NOTE | 2019-08-05 01:43 | NUR ---
PT WITH EYES CLOSED AND CHEST RISING. NO S/S OF DISTRESS. CONTINUES BIPAP. WILL CONTINUE TO OBSERVE.
--- NOTE | 2019-08-05 03:32 | NUR ---
PT WITH EYES CLOSED AND CHEST RISING. EASILY AWOKEN TO VERBAL STIMULI. INCONTINENT OF BLADDER. PADS CHANGED AND PERICARE PROVIDED. CONTINUES BIPAP. WILL CONTINUE TO OBSERVE
--- NOTE | 2019-08-05 06:07 | NUR ---
CHG BATH GIVEN, AIR MATRESS CHANGED WITH LINENS. PT TOLERATED WELL. CONDOM CATHETER PLACED WITHOUT ADHESIVE. YELLOW URINE NOTED. VSS. CONTINUES BIPAP. WILL CONTINUE TO OBSERVE.
[2019-08-05 06:09] LABS: BASOPHILS 0.2 % (0-2); EOSINOPHILS 0.6 % (0-7); HEMATOCRIT 30.5 % (42.0-54.0); HEMOGLOBIN 9.7 g/dL (13.5-17.5); IMMATURE GRANULOCYTES 0.2 % (0-5); LYMPHOCYTES 4.8 % (15-50); MCH 26.9 pg (26.0-34.0); MCHC 31.8 g/dL (31.0-37.0); MCV 84.7 fL (80.0-100.0); MEAN PLATELET VOLUME 9.2 fL (7.4-10.4); MONOCYTES 6.5 % (2-11); NEUTROPHILS 87.7 % (40-80); PLATELET COUNT 616 10x3/uL (130-400); RDW 18.4 % (11.5-14.5); WBC 12.4 10x3/uL (4.8-10.8)
[2019-08-05 06:28] LABS: ALBUMIN 2.7 g/dL (3.4-5.0); ANION GAP 9.1 mmol/L (8-16); BILIRUBIN - TOTAL 0.74 mg/dL (0.2-1.3); CALCIUM 8.5 mg/dL (8.5-10.1); CARBON DIOXIDE 29.4 mmol/L (21.0-32.0); CREATININE - SERUM 2.9 mg/dL (0.6-1.3); MAGNESIUM - SERUM 2.6 mg/dL (1.8-2.4); PHOSPHOROUS 2.9 mg/dL (2.5-4.9); POTASSIUM - SERUM 4.5 mmol/L (3.5-5.1); PROTEIN - SERUM 6.6 g/dL (6.4-8.2)
--- NOTE | 2019-08-05 10:14 | NUR ---
NUTRITION F/U PT CONTINUES WITH POOR PO INTAKE, DID NOT EAT BREAKFAST THIS AM. PROCALAMINE HAS BEEN STARTED AT 50 CC/HR. PROVIDING ~300 KCAL, [address] RD FOLLOWING
--- NOTE | 2019-08-05 13:48 | NUR ---
OT NOTE: HOLD PER NURSING. CARLOS DUGGAN, OTR/L
--- NOTE | 2019-08-05 18:08 | MORECARE ---
CASE MANAGEMENT DISCHARGE SUMMARY PATIENT: TERRY BOWLING UNIT: [id number] ADM DATE: 07/11/19 AGE: 78 : 42 SEX: M ROOM/[facility]ED: D[facility] AUTHOR: ELEAZAR,XIN PHYSICIAN: REFERRING PHYSICIAN: SAVANA GONZALES DO DATE OF SERVICE: 08/05/19 Discharge Plan Patient Name: TERRY BOWLING Facility: [facility]:[place] : 1940 Planned Disposition: Home with Home Health Anticipated Discharge Date: Discharge Date: Expected LOS: Initial Reviewer: [id number] Initial Review Date: 07/13/2019 Generated: 08/05/19 7:08 pm Comments DCP- Discharge Planning Updated by [email or web address]: Destinee Dunn on 08/05/19 5:[address] Late Entry 08/04/19 CM notified that family has decided to make patient a DNR. CM witness with nurse Kelsea both daughters (Leonora & Geovanna) agreeing to make patient DNR. Daughters have spoken to both Dr. Emanuel and Dr. Johnson regarding patient status. Family has been updated on patients condition and they are suppose to make a decision of LTACH v/s Hospice within the next day or two. CM will continue to follow and assist as needed with discharge planning / needs. DCP- Discharge Planning Updated by [id number]: Destinee Dunn on 08/01/19 3:[address] CM spoke with daughter Leonora and daughter Geovanna regarding patient and discharge planning. CM explained that patient at this point will not be able to discharge home alone even with Home Health d/t it not being a safe discharge. CM explained that the MD had placed an order for rehab prescreen and once patient is stable and if insurance approves inpatient rehab then he could possibly go there. Both daughters agree to this plan. CM also explained that if insurance doesn't authorize inpatient rehab then then they will most likely suggest [facility] for rehab. Both daughters state that he will never agree to that. CM received an updated number Leonora [phone] until Thursday when she can get her phone reactivated. Geovanna [phone]. CM updated daughter' s that patient will most likely transfer out to floor once a bed is available. CM will continue to follow and assist as needed with discharge planning needs. DCP- Discharge Planning Updated by [email or web address]: Destinee Dunn on 08/01/19 10:[address] CM attempted to contact daughter Leonora Bowling [phone]. CM received a message number is not reachable. CM relayed message to nursing if daughter calls ask her to call CM. CM will continue to follow and assist as needed with discharge planning / needs. DCP- Discharge Planning Updated by [id number]: Martínez Ordonez on 07/13/19 4:[address] Patient Name: TERRY BOWLING Admission Status: ER Accout number: [id number] Admission Date: 07-11-2019 : 1940 Admission Diagnosis: Attending: SAVANA GONZALES Current LOS: 2 Anticipated DC Date: Planned Disposition: Home with Home Health Primary Insurance: [employer] [facility] PLANNED EXTERNAL PROVIDER: [facility] Discharge Planning Comments: CM RECEIVED ORDER TO CONSULT WITH PT REGARDING DISCHARGE NEEDS. CM MET WITH PT IN ROOM TO DISCUSS DISCHARGE PLANNING AND NEEDS. PT REPORTS LIVING AT HOME INDEPENDENTLY AND ALONE. PT HAS CANE AND WALKER WITH NO MEDICAL EQUIPMENT PROVIDER PREFERENCE. PT HAD [facility] BUT IT HAD ALREADY STOPPED; PT HAS NO OUTSIDE SERVICES ASSISTING IN THE HOME. CM DISCUSSED AVAILABILITY OF HOME HEALTH, REHAB SERVICES AND MEDICAL EQUIPMENT. PT DENIES NEED OF INPATIENT OR SKILLED REHAB. PT WANTS HOME HEALTH WITH [facility]; PT STATES HIS DAUGHTER WILL BE COOKING AND CLEANING FOR HIM AFTER DISCHARGE, BUT HE WILL STILL BE LIVING ALONE. PT REPORTS HIS DAUGHTER WILL PICK HIM UP FOR DISCHARGE HOME. IMPORTANT MESSAGE FROM MEDICARE PROVIDED AND EXPLAINED. CHOICE FOR [facility] SIGNED. CM TO ARRANGE [facility] FOR DISCHARGE HOME WITH PHYSICIAN AGREEMENT AND ORDERS. PCP IS DR. LAFLEUR. CM TO CONTINUE TO FOLLOW AND ASSIST NEEDED. Log Grader: Martínez Ordonez DCPIA - Discharge Planning Initial Assessment Updated by [id number]: Martínez Ordonez on 07/13/19 4:52 pm * Is the patient Alert and Oriented? Yes * How many steps to enter\exit or inside your home? NONE * PCP DR. LAFLEUR * Pharmacy [facility] * Preadmission Environment Home Alone * ADLs Independent * Equipment Cane Rolling Walker * Other Equipment NO MEDICAL EQUIPMENT PROVIDER PREFERENCE * List name and contact numbers for known caregivers / representatives who currently or will assist patient after discharge: GEOVANNA KLEBER, DTR, * Verbal permission to speak to the caregivers and representatives has been obtained from the patient. N/A * Community resources currently utilized None * Please name any agencies selected above. NONE * Additional services required to return to the preadmission environment? No * Can the patient safely return to the preadmission environment? Yes * Has this patient been hospitalized within the prior 30 days at any hospital? No Coverage Notice Reviewer: [id number] Ordonez Notice Issued Date-Time: 07/13/2019 16:40 Notice Type: IM Discharge Notice Notice Delivered To: Patient Relationship to Patient: Stitcher Utility Name: Delivery Method: HAND - Hand Delivered Nela Days: Prior Verbal Notification: Recipient Understood Notice: Yes Recipient Signature: Yes Med Rec Note Co-signed by Attending: Coverage Notice Comment: Reviewer: KATHYA Ordonez Notice Issued Date-Time: 07/13/2019 16:40 Notice Type: Patient Choice Letter Notice Delivered To: Patient Relationship to Patient: Stitcher Utility Name: Delivery Method: HAND - Hand Delivered Nela Days: Prior Verbal Notification: Recipient Understood Notice: Yes Recipient Signature: Yes Med Rec Note Co-signed by Attending: Coverage Notice Comment: [facility] Last DP export: 08/01/19 3:32 Patient Name: TERRY BOWLING Page [id number] at 1808 All edits/amendments must be made on the electronic document DICTATION DATE: 08/05/191807 SOFTWARE DEVELOPER INTERN: SHERIN 08/05/191807 RPT#: [id number] DC DATE: STATUS: ADM IN [facility] [address] [place] [address] END OF REPORT
--- NOTE | 2019-08-05 18:16 | MORECARE ---
CASE MANAGEMENT DISCHARGE SUMMARY PATIENT: TERRY BOWLING UNIT: [id number] ADM DATE: 07/11/19 AGE: 78 : 42 SEX: M ROOM/BED: [facility] AUTHOR: ELEAZAR,XIN PHYSICIAN: REFERRING PHYSICIAN: SAVANA GONZALES DO DATE OF SERVICE: 08/05/19 Discharge Plan Patient Name: TERRY BOWLING Facility: [facility]:[place] : 1940 Planned Disposition: Home with Home Health Anticipated Discharge Date: Discharge Date: Expected LOS: Initial Reviewer: [id number] Initial Review Date: 07/13/2019 Generated: 08/05/19 7:16 pm Comments DCP- Discharge Planning Updated by [email or web address]: Destinee Dunn on 08/05/19 5:[address] Late Entry 08/04/19 CM notified that family has decided to make patient a DNR. CM witness with nurse Kelsea both daughters (Leonora & Geovanna) agreeing to make patient DNR. Daughters have spoken to both Dr. Emanuel and Dr. Johnson regarding patient status. Family has been updated on patients condition and they are suppose to make a decision of LTACH v/s Hospice within the next day or two. CM will continue to follow and assist as needed with discharge planning / needs. DCP- Discharge Planning Updated by [id number]: Destinee Dunn on 08/01/19 3:[address] CM spoke with daughter Leonora and daughter Geovanna regarding patient and discharge planning. CM explained that patient at this point will not be able to discharge home alone even with Home Health d/t it not being a safe discharge. CM explained that the MD had placed an order for rehab prescreen and once patient is stable and if insurance approves inpatient rehab then he could possibly go there. Both daughters agree to this plan. CM also explained that if insurance doesn't authorize inpatient rehab then then they will most likely suggest Nursing Home Facility for rehab. Both daughters state that he will never agree to that. CM received an updated number Leonora [phone] until Thursday when she can get her phone reactivated. Geovanna [phone]. CM updated daughter' s that patient will most likely transfer out to floor once a bed is available. CM will continue to follow and assist as needed with discharge planning needs. DCP- Discharge Planning Updated by [id number]: Destinee Dunn on 08/01/19 10:[address] CM attempted to contact daughter Leonora Bowling [phone]. CM received a message number is not reachable. CM relayed message to nursing if daughter calls ask her to call CM. CM will continue to follow and assist as needed with discharge planning / needs. DCP- Discharge Planning Updated by [email or web address]: Martínez Ordonez on 07/13/19 4:[address] Patient Name: TERRY BOWLING Admission Status: ER Accout number: [id number] Admission Date: 07-11-2019 : 1940 Admission Diagnosis: Attending: SAVANA GONZALES Current LOS: 2 Anticipated DC Date: Planned Disposition: Home with Home Health Primary Insurance: [employer] O [facility] PLANNED EXTERNAL PROVIDER: [facility] Discharge Planning Comments: CM RECEIVED ORDER TO CONSULT WITH PT REGARDING DISCHARGE NEEDS. CM MET WITH PT IN ROOM TO DISCUSS DISCHARGE PLANNING AND NEEDS. PT REPORTS LIVING AT HOME INDEPENDENTLY AND ALONE. PT HAS CANE AND WALKER WITH NO MEDICAL EQUIPMENT PROVIDER PREFERENCE. PT HAD [facility] BUT IT HAD ALREADY STOPPED; PT HAS NO OUTSIDE SERVICES ASSISTING IN THE HOME. CM DISCUSSED AVAILABILITY OF HOME HEALTH, REHAB SERVICES AND MEDICAL EQUIPMENT. PT DENIES NEED OF INPATIENT OR SKILLED REHAB. PT WANTS HOME HEALTH WITH [facility]; PT STATES HIS DAUGHTER WILL BE COOKING AND CLEANING FOR HIM AFTER DISCHARGE, BUT HE WILL STILL BE LIVING ALONE. PT REPORTS HIS DAUGHTER WILL PICK HIM UP FOR DISCHARGE HOME. IMPORTANT MESSAGE FROM MEDICARE PROVIDED AND EXPLAINED. CHOICE FOR [facility] SIGNED. CM TO ARRANGE [facility] FOR DISCHARGE HOME WITH PHYSICIAN AGREEMENT AND ORDERS. PCP IS DR. LAFLEUR. CM TO CONTINUE TO FOLLOW AND ASSIST NEEDED. Deep Sea Diver: Martínez Ordonez DCPIA - Discharge Planning Initial Assessment Updated by [email or web address]: Martínez Ordonez on 07/13/19 4:52 pm * Is the patient Alert and Oriented? Yes * How many steps to enter\exit or inside your home? NONE * PCP DR. LAFLEUR * Pharmacy [facility] - [facility] * Preadmission Environment Home Alone * ADLs Independent * Equipment Cane Rolling Walker * Other Equipment NO MEDICAL EQUIPMENT PROVIDER PREFERENCE * List name and contact numbers for known caregivers / representatives who currently or will assist patient after discharge: GEOVANNA KLEBER, DTR, * Verbal permission to speak to the caregivers and representatives has been obtained from the patient. N/A * Community resources currently utilized None * Please name any agencies selected above. NONE * Additional services required to return to the preadmission environment? No * Can the patient safely return to the preadmission environment? Yes * Has this patient been hospitalized within the prior 30 days at any hospital? No Coverage Notice Reviewer: [id number] Ordonez Notice Issued Date-Time: 07/13/2019 16:40 Notice Type: IM Discharge Notice Notice Delivered To: Patient Relationship to Patient: Lean Manufacturing Engineer Name: Delivery Method: HAND - Hand Delivered Nela Days: Prior Verbal Notification: Recipient Understood Notice: Yes Recipient Signature: Yes Med Rec Note Co-signed by Attending: Coverage Notice Comment: Reviewer: KATHYA Ordonez Notice Issued Date-Time: 07/13/2019 16:40 Notice Type: Patient Choice Letter Notice Delivered To: Patient Relationship to Patient: Lean Manufacturing Engineer Name: Delivery Method: HAND - Hand Delivered Nela Days: Prior Verbal Notification: Recipient Understood Notice: Yes Recipient Signature: Yes Med Rec Note Co-signed by Attending: Coverage Notice Comment: [facility] Last DP export: 08/05/19 5:08 Patient Name: TERRY BOWLING Page 13288 at 1816 All edits/amendments must be made on the electronic document DICTATION DATE: 08/05/191815 ELECTRICAL EXPERIMENTAL MECHANIC: SHERIN 08/05/191815 RPT#: [id number] DC DATE: STATUS: ADM IN [facility] [address] [place] [address] END OF REPORT
--- NOTE | 2019-08-05 19:00 | NUR ---
PT ASSESSMENT COMPLETED AT THIS TIME, NO CHANGES FROM NURSE REPORT, PT VERY ANIXIOUS AND RESTLESS, VSS, PT REORIENTED BUT PT IS VERY CONFUSED, WILL MONITOR FOR CHANGES
--- NOTE | 2019-08-05 21:00 | NUR ---
PT GIVEN PM MEDS WITHOUT DIFFCULTY, PT REMAINS VERY ANIXIOUS AND AGITATED AT THIS TIME, VSS WILL MONITOR FOR CHANGES
--- NOTE | 2019-08-05 21:39 | NUR ---
CONDOM CATH WAS PLACED ON PATIENT DUE TO PATIENTS REQUEST TO NEED TO VOID AND UNABLE TO USE URINAL
--- NOTE | 2019-08-05 22:05 | NUR ---
PT STILL VERY RESTLESS AND UNABLE TO CALM DOWN AT THIS TIME, WILL CONT. TO MON FOR IMPROVMENT
--- NOTE | 2019-08-05 23:00 | NUR ---
PT REASSESSMENT COMPLETED AT THIS TIME, PT STILL VERY RESTLESS AND AGITATED, VSS, PT REORIENTED, PT STILL VERY CONFUSED AT THIS TIME
[2019-08-06] VITALS (24 sets, daily range): BP systolic 88–142; BP diastolic 36–90
--- NOTE | 2019-08-06 01:00 | NUR ---
PT STILL RESTLESS AT THIS TIME, BUT LESS AGITATED, PT STILL VERY CONFUSED, RESP STILL 26-28 PER MIN, WILL CONT TO MONITOR
--- NOTE | 2019-08-06 02:02 | NUR ---
PT INCREASED RESTLESSNESS AND BECOMING AGITATED, UNABLE TO REORIENT PT, PT REMAINS VERY CONFUSED
--- NOTE | 2019-08-06 03:00 | NUR ---
PT REASSESSMENT COMPLETED AT THIS TIME, PT RESTING CALMLY, VSS, WILL CONT TO MON.
--- NOTE | 2019-08-06 04:44 | NUR ---
PT'S SPO2 WAS NOTED TO BE DROPING, PT WAS FOUND WITH SHALLOW RESP, PT WAS PLACED ON BIPAP, SPO2 INCREASED
--- NOTE | 2019-08-06 05:25 | NUR ---
PT MORE ALERT AND TRYING REMOVE BIPAP, SPO2 INCREASED.
[2019-08-06 06:40] LABS: BASOPHILS 0 % (0-2); EOSINOPHILS 0.1 % (0-7); HEMATOCRIT 30.3 % (42.0-54.0); HEMOGLOBIN 9.3 g/dL (13.5-17.5); IMMATURE GRANULOCYTES 0.3 % (0-5); LYMPHOCYTES 2.5 % (15-50); MCH 26.3 pg (26.0-34.0); MCHC 30.7 g/dL (31.0-37.0); MCV 85.8 fL (80.0-100.0); MEAN PLATELET VOLUME 9.2 fL (7.4-10.4); NEUTROPHILS 92.1 % (40-80); PLATELET COUNT 622 10x3/uL (130-400); RBC 3.53 10x6/uL (4.20-6.10); RDW 18.8 % (11.5-14.5); WBC 14.1 10x3/uL (4.8-10.8)
[2019-08-06 06:56] LABS: ALBUMIN 2.9 g/dL (3.4-5.0); ANION GAP 11.4 mmol/L (8-16); BILIRUBIN - TOTAL 0.73 mg/dL (0.2-1.3); CALCIUM 8.5 mg/dL (8.5-10.1); CARBON DIOXIDE 28.5 mmol/L (21.0-32.0); MAGNESIUM - SERUM 2.6 mg/dL (1.8-2.4); POTASSIUM - SERUM 4.9 mmol/L (3.5-5.1); PROTEIN - SERUM 6.9 g/dL (6.4-8.2)
[2019-08-06 06:57] LABS: PHOSPHOROUS 4.2 mg/dL (2.5-4.9)
--- NOTE | 2019-08-06 19:00 | NUR ---
PT ASSESSMENT COMPLETED AT THIS TIME, NO CHANGES NOTED FROM NURSE REPORT, PT REMAINS CONFUSED BUT ASKING MORE APPRORIATE QUESTIONS AT THIS TIME, VSS, WILL CONT TO MONITOR FOR CHANGES
--- NOTE | 2019-08-06 21:00 | NUR ---
PT GIVEN PM MEDS, PT BECOMING MORE CONFUSED AND RESTLESS, MONITORING FOR PAIN MEDICATION EFFECTS, VSS, WILL CONT TO MONITOR FOR ADDITIONAL MEDICATION FOR RESTLESSNESS AND AGITATION
--- NOTE | 2019-08-06 22:16 | NUR ---
PT STILL CONFUSED BUT LESS RESTLESS AT THIS TIME, WILL MONITOR FOR CHANGES
--- NOTE | 2019-08-06 23:00 | NUR ---
Patient reassessment complete at this time. Patient more calm and less restlessness noted. Vital signs are stable. No distress noted. We will continue to monitor for changes.
[2019-08-07] VITALS (24 sets, daily range): BP systolic 87–141; BP diastolic 49–78
--- NOTE | 2019-08-07 01:00 | NUR ---
Patient resting with eyes closed. Respirations still tachypneic and patient remains on BiPAP. Vital signs are stable at this time. No distress noted. We will continue to monitor for changes.
--- NOTE | 2019-08-07 03:00 | NUR ---
Patient reassessment complete at this time. No significant changes noted. Vital signs stable no distress noted. Will monitor for changes.
--- NOTE | 2019-08-07 05:05 | NUR ---
PT RESTING WITH EYES CLOSED, NO CHANGES NOTED, VSS REMAINS STABLE
[2019-08-07 06:17] LABS: BASOPHILS 0.1 % (0-2); EOSINOPHILS 0 % (0-7); HEMATOCRIT 28.5 % (42.0-54.0); HEMOGLOBIN 8.8 g/dL (13.5-17.5); IMMATURE GRANULOCYTES 0.4 % (0-5); LYMPHOCYTES 2.6 % (15-50); MCH 26.9 pg (26.0-34.0); MCHC 30.9 g/dL (31.0-37.0); MCV 87.2 fL (80.0-100.0); MEAN PLATELET VOLUME 9.2 fL (7.4-10.4); NEUTROPHILS 90.9 % (40-80); PLATELET COUNT 635 10x3/uL (130-400); RBC 3.27 10x6/uL (4.20-6.10); RDW 19.1 % (11.5-14.5); WBC 15.3 10x3/uL (4.8-10.8)
[2019-08-07 06:36] LABS: ALBUMIN 2.8 g/dL (3.4-5.0); ANION GAP 9.3 mmol/L (8-16); BILIRUBIN - TOTAL 0.62 mg/dL (0.2-1.3); CALCIUM 8.5 mg/dL (8.5-10.1); CARBON DIOXIDE 29.7 mmol/L (21.0-32.0); CREATININE - SERUM 3.3 mg/dL (0.6-1.3); PROTEIN - SERUM 6.7 g/dL (6.4-8.2)
--- NOTE | 2019-08-07 19:00 | NUR ---
Patient assessment completed at this time. No significant changes noted from the nurse report. Patient wakes up periodically answers questions follows commands. Patient remains very confused. Vital signs are stable at this time. We will continue to monitor for changes.
--- NOTE | 2019-08-07 21:00 | NUR ---
Patient was attempted to give p.o. medications at this time. Patient did have some difficulty swallowing with meds mixed with applesauce. Patient not able to tolerate thin liquids. Vital signs remained stable at this time. Will monitor for changes.
--- NOTE | 2019-08-07 23:00 | NUR ---
PT REASSESSMENT COMPLETED AT THIS TIME. NO CHANGES NOTED, PT STILL CONFUSED. VSS WILL MONITOR FOR CHANGES
[2019-08-08] VITALS: BP 92/49
[2019-08-08 01:00] VITALS: BP 107/52
[2019-08-08 02:00] VITALS: BP 104/48
--- NOTE | 2019-08-08 02:45 | NUR ---
0245 CALLED THE NUMBER FOR PATIENT'S DAUGHTER CARLOS, THERE WAS NO ANSWER. 0247 CALLED PATIENT'S DAUGHTER AGAIN AND THER WAS NO ANSWER. 0250 CALLED PATIENT'S DAUGHTER MARITZA AND NOTIFIED OF HER OF PATIENT'S COND. DECLINING, AND ADVISED THAT THEY SHOULD COME UP TO THE HOSIPITAL
[2019-08-08 03:00] VITALS: BP 55/36
--- NOTE | 2019-08-08 03:30 | NUR ---
DR. SPARKS WAS PAGED AND NOTIFED OF PATIENTS
--- NOTE | 2019-08-08 03:30 | NUR ---
DR. PIERCE PAGED AND NOTIFED OF PATIENTS
--- NOTE | 2019-08-08 03:36 | NUR ---
[facility] CALLED AND PATIENT INFORMATION WAS GIVEN TO THEM, COORDINATOR ADVISED TO CALL HER BACK WHEN THE FAMILY HAD LEFT SO SHE COULD CALL THEM ABOUT DONATION
--- NOTE | 2019-08-08 03:37 | NUR ---
[facility] WAS PAGED AND CARMEN VICTORIA ADVISED TO CALLED DR MARKS
--- NOTE | 2019-08-08 04:10 | NUR ---
DR. MARKS WAS CALLED AND NOTIFIED OF
--- NOTE | 2019-08-08 04:46 | NUR ---
[facility] HERE AND BODY WAS RELEASED TO THEM
--- NOTE | 2019-08-08 18:57 | MORECARE ---
CASE MANAGEMENT DISCHARGE SUMMARY PATIENT: TERRY BOWLING UNIT: [id number] ADM DATE: 07/11/19 AGE: 78 : 44 SEX: M ROOM/BED: [facility] AUTHOR: ELEAZAR,DOC PHYSICIAN: REFERRING PHYSICIAN: SAVANA GONZALES DO DATE OF SERVICE: 08/08/19 Discharge Plan Patient Name: TERRY BOWLING Facility: [facility]:[place] : 1940 Planned Disposition: Home with Home Health Anticipated Discharge Date: Discharge Date: 08/08/2019 Expected LOS: Initial Reviewer: [email or web address] Initial Review Date: 07/13/2019 Generated: 08/08/19 7:56 pm DCP- Discharge Planning Updated by [email or web address]: Destinee Dunn on 08/05/19 5:[address] Late Entry 08/04/19 CM notified that family has decided to make patient a DNR. CM witness with nurse Kelsea both daughters (Leonora & Geovanna) agreeing to make patient DNR. Daughters have spoken to both Dr. Emanuel and Dr. Johnson regarding patient status. Family has been updated on patients condition and they are suppose to make a decision of LTACH v/s Hospice within the next day or two. CM will continue to follow and assist as needed with discharge planning / needs. DCP- Discharge Planning Updated by [email or web address]: Destinee Dunn on 08/01/19 3:[address] CM spoke with daughter Leonora and daughter Geovanna regarding patient and discharge planning. CM explained that patient at this point will not be able to discharge home alone even with Home Health d/t it not being a safe discharge. CM explained that the MD had placed an order for rehab prescreen and once patient is stable and if insurance approves inpatient rehab then he could possibly go there. Both daughters agree to this plan. CM also explained that if insurance doesn't authorize inpatient rehab then then they will most likely suggest Intermediate Facility for rehab. Both daughters state that he will never agree to that. CM received an updated number Leonora [phone] until Thursday when she can get her phone reactivated. Geovanna [phone]. CM updated daughter' s that patient will most likely transfer out to floor once a bed is available. CM will continue to follow and assist as needed with discharge planning needs. DCP- Discharge Planning Updated by [email or web address]: Destinee Dunn on 08/01/19 10:[address] CM attempted to contact daughter Leonora Bowling [phone]. CM received a message number is not reachable. CM relayed message to nursing if daughter calls ask her to call CM. CM will continue to follow and assist as needed with discharge planning / needs. DCP- Discharge Planning Updated by [email or web address]: Martínez Ordonez on 07/13/19 4:[address] Patient Name: TERRY BOWLING Admission Status: ER Accout number: [id number] Admission Date: 07-11-2019 : 1940 Admission Diagnosis: Attending: SAVANA GONZALES Current LOS: 2 Anticipated DC Date: Planned Disposition: Home with Home Health Primary Insurance: [employer] O [facility] PLANNED EXTERNAL PROVIDER: [facility] Discharge Planning Comments: CM RECEIVED ORDER TO CONSULT WITH PT REGARDING DISCHARGE NEEDS. CM MET WITH PT IN ROOM TO DISCUSS DISCHARGE PLANNING AND NEEDS. PT REPORTS LIVING AT HOME INDEPENDENTLY AND ALONE. PT HAS CANE AND WALKER WITH NO MEDICAL EQUIPMENT PROVIDER PREFERENCE. PT HAD [facility] BUT IT HAD ALREADY STOPPED; PT HAS NO OUTSIDE SERVICES ASSISTING IN THE HOME. CM DISCUSSED AVAILABILITY OF HOME HEALTH, REHAB SERVICES AND MEDICAL EQUIPMENT. PT DENIES NEED OF INPATIENT OR SKILLED REHAB. PT WANTS HOME HEALTH WITH [facility]; PT STATES HIS DAUGHTER WILL BE COOKING AND CLEANING FOR HIM AFTER DISCHARGE, BUT HE WILL STILL BE LIVING ALONE. PT REPORTS HIS DAUGHTER WILL PICK HIM UP FOR DISCHARGE HOME. IMPORTANT MESSAGE FROM MEDICARE PROVIDED AND EXPLAINED. CHOICE FOR [facility] SIGNED. CM TO ARRANGE [facility] FOR DISCHARGE HOME WITH PHYSICIAN AGREEMENT AND ORDERS. PCP IS DR. LAFLEUR. CM TO CONTINUE TO FOLLOW AND ASSIST NEEDED. Tobacco Dipper: Martínez Ordonez DCPIA - Discharge Planning Initial Assessment Updated by [email or web address]: Martínez Ordonez on 07/13/19 4:52 pm * Is the patient Alert and Oriented? Yes * How many steps to enter\exit or inside your home? NONE * PCP DR. LAFLEUR * Pharmacy [facility] * Preadmission Environment Home Alone * ADLs Independent * Equipment Cane Rolling Walker * Other Equipment NO MEDICAL EQUIPMENT PROVIDER PREFERENCE * List name and contact numbers for known caregivers / representatives who currently or will assist patient after discharge: GEOVANNA BOWLING, DTR, * Verbal permission to speak to the caregivers and representatives has been obtained from the patient. N/A * Community resources currently utilized None * Please name any agencies selected above. NONE * Additional services required to return to the preadmission environment? No * Can the patient safely return to the preadmission environment? Yes * Has this patient been hospitalized within the prior 30 days at any hospital? No Coverage Notice Reviewer: [email or web address] Ordonez Notice Issued Date-Time: 07/13/2019 16:40 Notice Type: IM Discharge Notice Notice Delivered To: Patient Relationship to Patient: Recycling Attendant Name: Delivery Method: HAND - Hand Delivered Nela Days: Prior Verbal Notification: Recipient Understood Notice: Yes Recipient Signature: Yes Med Rec Note Co-signed by Attending: Coverage Notice Comment: Reviewer: KATHYA Ordonez Notice Issued Date-Time: 07/13/2019 16:40 Notice Type: Patient Choice Letter Notice Delivered To: Patient Relationship to Patient: Recycling Attendant Name: Delivery Method: HAND - Hand Delivered Nela Days: Prior Verbal Notification: Recipient Understood Notice: Yes Recipient Signature: Yes Med Rec Note Co-signed by Attending: Coverage Notice Comment: [facility] Last DP export: 08/05/19 5:16 Patient Name: TERRY BOWLING Page [id number] at 1857 All edits/amendments must be made on the electronic document DICTATION DATE: 08/08/191855 BUGGY LADLE TENDER: SHERIN 08/08/191855 RPT#: [id number] DC DATE:08/08/19 STATUS: DIS IN [place] [id number] [place] [address] END OF REPORT
== END 2019-08-08 04:46 | DRG 377 ==
LOC: D.ER 14:42 → D.M2 19:28 → D.CVICU 19:28 → D.ICU 19:28 → D.CVICU 07-18 17:06
PROVIDERS: Family Medicine; General Practice; Internal Medicine; Internal Medicine Cardiovascular Disease; Internal Medicine Nephrology; Internal Medicine Pulmonary Disease; Surgery; ADMIT Family Medicine; ATTEND Family Medicine
PROC: 02HV33Z Insertion of Infusion Device into Superior Vena Cava, Percutaneous Approach (ICD-10-PCS; principal; 2019-07-15)
PROC: B548ZZA Ultrasonography of Superior Vena Cava, Guidance (ICD-10-PCS; 2019-07-15)
PROC: B415ZZZ Fluoroscopy of Inferior Mesenteric Artery (ICD-10-PCS; 2019-07-15)
PROC: 3E04317 Introduction of Other Thrombolytic into Central Vein, Percutaneous Approach (ICD-10-PCS; 2019-07-15)
PROC: B41FZZZ Fluoroscopy of Right Lower Extremity Arteries (ICD-10-PCS; 2019-07-17)
PROC: 05HY33Z Insertion of Infusion Device into Upper Vein, Percutaneous Approach (ICD-10-PCS; 2019-07-25)
PROC: 02HV33Z Insertion of Infusion Device into Superior Vena Cava, Percutaneous Approach (ICD-10-PCS; 2019-07-27)
PROC: B548ZZA Ultrasonography of Superior Vena Cava, Guidance (ICD-10-PCS; 2019-07-27)
DX: K57.93 Diverticulitis of intestine, part unspecified, without perforation or abscess with bleeding (principal); J96.01 Acute respiratory failure with hypoxia; I50.23 Acute on chronic systolic (congestive) heart failure; I26.99 Other pulmonary embolism without acute cor pulmonale; N17.0 Acute kidney failure with tubular necrosis; E43 Unspecified severe protein-calorie malnutrition; G93.41 Metabolic encephalopathy; E87.1 Hypo-osmolality and hyponatremia; I13.0 Hypertensive heart and chronic kidney disease with heart failure and stage 1 through stage 4 chronic kidney disease, or unspecified chronic kidney disease; I50.32 Chronic diastolic (congestive) heart failure; D62 Acute posthemorrhagic anemia; I82.621 Acute embolism and thrombosis of deep veins of right upper extremity; J98.11 Atelectasis; I42.9 Cardiomyopathy, unspecified; R57.0 Cardiogenic shock; W19.XXXA Unspecified fall, initial encounter; R42 Dizziness and giddiness; N18.9 Chronic kidney disease, unspecified; E78.5 Hyperlipidemia, unspecified; N40.0 Benign prostatic hyperplasia without lower urinary tract symptoms; K82.9 Disease of gallbladder, unspecified; I95.9 Hypotension, unspecified; Z68.23 Body mass index [BMI] 23.0-23.9, adult; I46.9 Cardiac arrest, cause unspecified